=== PATIENT | male | born 1945 | race Caucasian/White ===

== ENCOUNTER 2016-07-15 11:45 | Emergency (ER) | payer OTHER ==
[2016-07-15 11:54] VITALS: BMI 23.1
[2016-07-15] MEDS ORDERED: methylPREDNISolone NA SUCC 125 MG/2 ML VIAL IVPB ONE (12:19)
[2016-07-15] MEDS ORDERED: ALBUTEROL SO4 2.5/IPRATROPIUM 0.5 INH SOL 3 ML VIAL.NEB. NEB ONE ×2 (12:19→12:21)
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
[2016-07-15] MEDS ORDERED: methylPREDNISolone NA SUCC 125 MG/2 ML VIAL ONE (12:24)
[2016-07-15 12:42] LABS: MCH 30.2 pg (25.7-33.7); MCHC 31.8 g/dl (32.0-35.9); MEAN CELL VOLUME 95.1 fl (80-96); MEAN PLT VOLUME 9.9 fl (7.5-11.1); PLATELET COUNT 180 K/MM3 (134-434); RDW 15.6 % (11.9-15.9); WHITE BLOOD COUNT 22.9 K/mm3 (4.0-10.0)
[2016-07-15 13:08] LABS: ALBUMIN 3.8 g/dl (3.4-5.0); ANION GAP 9 (8-16); BILIRUBIN,TOTAL 0.9 mg/dL (0.2-1.0); CALCIUM 9.5 mg/dL (8.5-10.1); CO2 29 mmol/L (21-32); COCKROFT - GAULT 88.19; CREATININE 0.9 mg/dL (0.7-1.3); GLUCOSE,RANDOM 107 mg/dL (74-106); SGOT/AST 19 U/L (15-37); SGPT/ALT 24 U/L (12-78)
[2016-07-15 13:12] LABS: ALK PHOS 86 U/L (45-117); TOT PROT 7.4 g/dl (6.4-8.2); TROPONIN I < 0.02 ng/ml (0.00-0.05)
[2016-07-15 14:32] VITALS: BP 115/85; PULSE 102
[2016-07-15 15:02] VITALS: TEMP 97.8
== END 2016-07-15 15:01 | disposition home or self-care (01) ==
LOC: JER 11:45
PROC: 3E0F7GC Introduction of Other Therapeutic Substance into Respiratory Tract, Via Natural or Artificial Opening (ICD-10-PCS; principal; 2016-07-15)
PROC: 3E0333Z Introduction of Anti-inflammatory into Peripheral Vein, Percutaneous Approach (ICD-10-PCS; 2016-07-15)
DX: J44.1 Chronic obstructive pulmonary disease with (acute) exacerbation (principal); J45.909 Unspecified asthma, uncomplicated; F17.210 Nicotine dependence, cigarettes, uncomplicated; Z85.3 Personal history of malignant neoplasm of breast; Z90.11 Acquired absence of right breast and nipple
CPT/HCPCS: 36415; 71020-TC; 80053; 82550; 82553; 84484; 85025; 94640; 96374; 99283-25

== ENCOUNTER 2019-09-03 20:28 | Emergency (ER) | payer OTHER ==
[2019-09-03 20:40] VITALS: BP 107/75; PULSE 103; BMI 25.7
[2019-09-03] MEDS ORDERED: ALBUTEROL SO4 HFA INHALER IH ONE (21:20)
[2019-09-03 21:32] VITALS: TEMP 100.4
[2019-09-03] MEDS ORDERED: ACETAMINOPHEN 500 MG TABLET (FP) PO ONE (21:35)
[2019-09-03 21:38] LABS: BASO % 0.3 % (0-2.0); HEMATOCRIT 42.7 % (35.4-49); LYMPH % 52.3 % (8-40); MCH 30.5 pg (25.7-33.7); MCHC 32.8 g/dl (32.0-35.9); MEAN PLT VOLUME 11.6 fl (7.5-11.1); MONO % 2.9 % (3.8-10.2); NEUT % 44.5 % (42.8-82.8); PLATELET COUNT 132 K/MM3 (134-434); RBC 4.59 M/mm3 (4.00-5.60); RDW 15.8 % (11.9-15.9)
[2019-09-03] MEDS ORDERED: ACETAMINOPHEN 325 MG TABLET (FP) ONE (21:44)
[2019-09-03 21:49] LABS: INR 1.26 (0.83-1.09); PROTHROMBIN TIME (PATIENT) 14.9 SEC (9.7-13.0)
[2019-09-03 22:17] LABS: ALBUMIN 2.7 g/dl (3.4-5.0); BILIRUBIN,TOTAL 0.9 mg/dL (0.2-1); BLOOD UREA NITROGEN 15.6 mg/dL (7-18); CALCIUM 8.6 mg/dL (8.5-10.1); CREATININE 1.4 mg/dL (0.55-1.3); POTASSIUM 3.9 mmol/L (3.5-5.1); TOT PROT 6.2 g/dl (6.4-8.2)
[2019-09-03 22:23] LABS: N-TERMINAL BNP 595.7 pg/ml (5-125)
[2019-09-03 22:36] LABS: MACROCYTOSIS 1+; PLATELET ESTIMATE SLT DECREASE
[2019-09-04] MEDS ORDERED: PIPERACILLIN/TAZOB 4.5 GM 4.5 GM in DEXTROSE 5%-WATER 100 ML IVPB ONE (00:12)
[2019-09-04] MEDS ORDERED: PIPERACILLIN/TAZOB 4.5 GM 4.5 GM/100 ML BAG IVPB ONE (00:17)
[2019-09-04] MEDS ORDERED: VANCOMYCIN 1,000 MG in DEXTROSE 5%-WATER - 250 ML IVPB ONE (01:05)
== END 2019-09-04 01:45 | disposition left against medical advice (07) ==
LOC: JER 20:28
DX: J44.1 Chronic obstructive pulmonary disease with (acute) exacerbation (principal); Z20.828 Contact with and (suspected) exposure to other viral communicable diseases
CPT/HCPCS: 36415; 71045-TC-FY; 71250-TC; 80053; 80307; 82728; 83605; 83615; 83880; 85025; 85610; 87040; 93005; 93010; 99285-25; U0003

== ENCOUNTER 2019-09-04 10:05 | Inpatient (IN) | payer OTHER ==
[2019-09-04] MEDS ORDERED: ACETAMINOPHEN INJECTION 100 ML IVPB ONE ×2 (10:24→16:44)
[2019-09-04] MEDS ORDERED: ACETAMINOPHEN 1000 MG/100 ML VIAL (NON FORMULARY) IVPB ONE ×2 (10:24→16:36)
[2019-09-04] MEDS ORDERED: ALBUTEROL SO4 2.5/IPRATROPIUM 0.5 INH SOL 3 ML VIAL.NEB. NEB ONE ×2 (10:24→16:19)
[2019-09-04] MEDS: ALBUTEROL SO4 2.5/IPRATROPIUM 0.5 INH SOL 3 ML VIAL.NEB. NEB SCH ×4 (10:30→11:20)
[2019-09-04 11:05] LABS: INR 1.23 (0.83-1.09); PROTHROMBIN TIME (PATIENT) 14.5 SEC (9.7-13.0)
[2019-09-04] MEDS ORDERED: PIPERACILLIN/TAZOB 4.5 GM 4.5 GM/100 ML BAG IVPB ONE ×2 (11:06→11:11)
[2019-09-04] MEDS ORDERED: VANCOMYCIN 1 GM in D5W (PRE-DOCKED) 1,000 MG/250 ML IVPB ONE (11:06)
[2019-09-04 11:08] LABS: ACTIVATED PTT 29.8 SECONDS (25.2-36.5); BASO % 0.1 % (0-2.0); HEMOGLOBIN 14.5 GM/dL (11.7-16.9); LYMPH % 52.9 % (8-40); MCH 30.6 pg (25.7-33.7); MCHC 32.9 g/dl (32.0-35.9); MEAN CELL VOLUME 93.1 fl (80-96); MEAN PLT VOLUME 11.8 fl (7.5-11.1); MONO % 2.8 % (3.8-10.2); NEUT % 44.2 % (42.8-82.8); PLATELET COUNT 135 K/MM3 (134-434); RBC 4.73 M/mm3 (4.00-5.60); RDW 15.3 % (11.9-15.9)
[2019-09-04] MEDS ORDERED: VANCOMYCIN 1 GRAM (PRE-DOCKED) 1,000 MG/250 ML BAG IVPB ONE (11:11)
[2019-09-04 11:13] LABS: VENOUS PC02 35.9 mmHg (38-52); VENOUS PO2 < 49 mmHg (28-48)
[2019-09-04 11:14] LABS: VENOUS BASE EXCESS -2.4 mmol/L (-2-2)
[2019-09-04 11:32] LABS: ALBUMIN 2.8 g/dl (3.4-5.0); ALK PHOS 77 U/L (45-117); ANION GAP 12 MMOL/L (8-16); BILIRUBIN,TOTAL 0.8 mg/dL (0.2-1); BLOOD UREA NITROGEN 19.5 mg/dL (7-18); CALCIUM 8.7 mg/dL (8.5-10.1); CHLORIDE 96 mmol/L (98-107); CO2 21 mmol/L (21-32); CREATININE 1.4 mg/dL (0.55-1.3); GLUCOSE,RANDOM 109 mg/dL (74-106); POTASSIUM 4.3 mmol/L (3.5-5.1); SGOT/AST 32 U/L (15-37); SGPT/ALT 35 U/L (13-61); SODIUM 129 mmol/L (136-145); TOT PROT 6.5 g/dl (6.4-8.2)
--- NOTE | 2019-09-04 11:39 | PDOC ---
Documentation entered by Cally Alfaro SCRIBE, acting as scribe for Gray Nolasco MD. Gray Nolasco MD: This documentation has been prepared by the Angelina coffman Adrianna, SCRIBE, under my direction and personally reviewed by me in its entirety. I confirm that the documentation accurately reflects all work, treatment, procedures, and medical decision making performed by me. History of Present Illness - General Chief Complaint: Respiratory Stated Complaint: LOW OXYGEN/ABD DISTENTION Time Seen by Provider: 09/04/19 11:02 - History of Present Illness Initial Comments: The patient is a 73 year old male, with a significant PMH of R-sided breast cancer (s/p mastectomy), COPD, leukocytosis, alcoholism, and current smoker, who presents to the ED for evaluation of fever and shortness of breath. He complains of SOB, fever (tmax 103), body aches, and generalized weakness. Patient was seen in the ED yesterday for the same complaint, but decided to leave AMA. His CXR yesterday demonstrated a right upper lobe wedge-shaped infiltrate, he was given Zosyn in the ER and discharged with Levaquin. He returned to the ED today, as his symptoms have been progressively getting worse. Allergies: Mustard Surgical History: None reported Social History: Alcoholism. Current everyday smoker (1ppd) PCP: Dr. Kapadia Past History - Past Medical History Allergies/Adverse Reactions: Allergies Allergy/AdvReac Type Severity Reaction Status Date / Time mustard Allergy Verified 09/04/19 10:43 Home Medications: Ambulatory Orders Albuterol 2.5/Ipratropium 0.5 [Duoneb -] 1 neb NEB Q6H PRN #30 vial 07/15/16 Levofloxacin [Levaquin] 750 mg PO DAILY #5 tablet MDD 1 tab 09/04/19 Tamoxifen Citrate 20 mg PO DAILY 09/04/19 Asthma: Yes Cancer: Yes (RT BREAST CA) COPD: Yes - Immunization History Td Vaccination: Yes TDAP Vaccination: Yes Immunization Up to Date: Yes - Psycho Social/Smoking Cessation Hx Smoking Status: No Smoking History: Never smoked Years of Tobacco Use: 30 Have you smoked in the past 12 months: No Number of Cigarettes Smoked Daily: 4 Information on smoking cessation initiated: No 'Breaking Loose' booklet given: 06/18/13 Hx Alcohol Use: No Drug/Substance Use Hx: No Substance Use Type: None Hx Substance Use Treatment: No Review of Systems - Review of Systems Comments:: CONSTITUTIONAL: +Fever (tmax 103). +Generalized weakness. +Body aches. No reported: Chills, Diaphoresis, Malaise, Loss of Appetite HEENT: No reported: Rhinorrhea, Nasal Congestion, Throat Pain, Throat Swelling, Difficulty Swallowing, Mouth Swelling, Ear Pain, Eye Pain, Visual Changes CARDIOVASCULAR: No reported: Chest Pain, Syncope, Palpitations, Irregular Heart Rate, Lightheadedness, Peripheral Edema RESPIRATORY: +SOB. No reported: Cough, Orthopnea, Wheezing, Stridor, Hemoptysis GASTROINTESTINAL: No reported: Abdominal pain, Abdominal Distension, Nausea, Vomiting, Diarrhea, Constipation, Melena, Hematochezia GENITOURINARY: No reported: Dysuria, Frequency, Urgency, Hesitancy, Flank Pain, Genital Pain MUSCULOSKELETAL: No reported: Myalgia, Arthralgia, Joint Swelling, Back pain, Neck Pain SKIN: No reported: Rash, Itching, Pallor HEMATOLOGIC/IMMUNOLOGIC: No reported: Easy Bleeding, Easy Bruising, Lymphadenopathy, Frequent infections ENDOCRINE: No reported: Unexplained Weight Gain, Unexplained Weight Loss, Heat Intolerance, Cold Intolerance NEUROLOGIC: No reported: Headache, Focal Weakness, Paresthesias, Vertigo, Lightheadedness, Unsteady Gait, Seizure, Mental Status Changes, Incontinence PSYCHIATRIC: No reported: Anxiety, Depression *Physical Exam - Vital Signs Last Vital Signs Temp Pulse Resp BP Pulse Ox 103.1 F H 112 H 26 H 132/67 93 L 09/04/19 10:09/04/19 10:09/04/19 10:09/04/19 10:09/04/19 10:47 - Physical Exam GENERAL: The patient is awake, alert, and fully oriented, Nontoxic - in no acute distress. HEAD: Normocephalic, atraumatic. EYES: extraocular movements intact, sclera anicteric, conjunctiva clear. ENT: Normal voice, Moist mucous membranes. NECK: Normal range of motion, supple LUNGS: + rhonchi, expiratory wheezes HEART: Regular rate and rhythm, without murmur, rub or gallop. ABDOMEN: Soft, nontender, No guarding, no rebound.No CVA tenderness EXTREMITIES: Normal range of motion, no edema. No cyanosis. No erythema, or tenderness. NEUROLOGICAL: No facial asymmetry, Normal speech, PSYCH: Normal mood, normal affect. SKIN: Warm, Dry, normal turgor. ED Treatment Course - LABORATORY CBC & Chemistry Diagram: 09/04/19 10:28 09/04/19 10:28 - ADDITIONAL ORDERS Additional order review: Laboratory Results 09/04/19 10:28 PT with INR 14.50 H INR 1.23 H PTT (Actin FS) 29.8 09/04/19 10:28 RBC 4.73 MCV 93.1 MCHC 32.9 RDW 15.3 MPV 11.8 H Neutrophils % 44.2 Lymphocytes % 52.9 H Monocytes % 2.8 L Eosinophils % 0.0 Basophils % 0.1 - RADIOLOGY Radiograph Interpretation: EXAM#: TYPE/EXAM: RESULT: [id number] RAD/CHEST X-RAY PORTABLE* Rule out sepsis Portable chest x-ray, AP semiupright Right lung apex was not included. Since prior chest x-ray dated , airspace disease again seen in the right upper and midlung. Bilateral interstitial opacities are again seen. The cardiac silhouette remains within normal limits in size. Impression: No significant interval change Reported By: Alexy Purdy MD 09/04/19 11:11 - Medications Given in the ED: ED Medications Discontinued Medications Generic Name Dose Route Start Last Admin Trade Name Freq PRN Reason Stop Dose Admin Acetaminophen 1,000 mg 09/04/19 10:24 09/04/19 10:30 Ofirmev Injection - IVPB 09/04/19 10:25 1,000 mg ONCE ONE Administration Albuterol/Ipratropium 1 amp 09/04/19 10:30 09/04/19 11:07 Duoneb - NEB 09/04/19 11:16 1 amp Q15M PIERCE Administration Medical Decision Making - Critical Care Time Total Critical Care Time (minutes): 60 Critical Care Statement: The care of this patient involved high complexity decision making to prevent further life threatening deterioration of the patient's condition and/or to evaluate & treat vital organ system(s) failure or risk of failure. - Medical Decision Making 09/04/19 11:43 73 M with RUL PNA diagnosed yesterday, returning to ED after leaving AMA with worsening SOB and weakness. - Labs, cultures - Repeat CXR - Tylenol - Abx - Duonebs - Admit 09/04/19 12:[address] Gudino Discharge - Discharge Information Problems reviewed: Yes Clinical Impression/Diagnosis: Pneumonia - Admission Yes - Follow up/Referral Referrals: Yobani Kapadia MD [Primary Care Provider] - - Patient Discharge Instructions - Post Discharge Activity
[2019-09-04 12:08] LABS: ANISOCYTOSIS 0; MACROCYTOSIS 0; PLATELET ESTIMATE DECREASED
--- NOTE | 2019-09-04 13:20 | EKG ---
Test Reason : Blood Pressure : / mmHG Vent. Rate : 110 BPM Atrial Rate : 110 BPM P-R Int : 140 ms QRS Dur : 074 ms QT Int : 304 ms P-R-T Axes : 058 062 061 degrees QTc Int : 411 ms SINUS TACHYCARDIA SEPTAL INFARCT , AGE UNDETERMINED ABNORMAL ECG WHEN COMPARED WITH ECG OF 03-SEP-2019 22:32, SEPTAL INFARCT IS NOW PRESENT Confirmed by MD CHANTELL, AGNES ([id number]) on 09/04/2019 1:19:33 PM Referred By: Confirmed By:AGNES ABDUL MD
[2019-09-04] MEDS ORDERED: SODIUM CHLORIDE 500 ML IV STA (14:44)
[2019-09-04 15:17] LABS: EPI CELLS 11 /uL (0-25.1); HYALINE CASTS 1 /uL (0-3.1); PH,URINE 5.5 (5.0-8.0); URINE APPEARANCE CLEAR; URINE BACTERIA 33 /uL (0-1359); URINE BILIRUBIN NEGATIVE (NEGATIVE); URINE COLOR YELLOW; URINE GLUCOSE (UA) NEGATIVE (NEGATIVE); URINE KETONE 1+ (NEGATIVE); URINE LEUK ESTERASE NEGATIVE (NEGATIVE); URINE NITRITE NEGATIVE (NEGATIVE); URINE PROTEIN 2+ (NEGATIVE); URINE RBC 11 /uL (0-23.9); URINE WBC 11 /uL (0-25.8)
[2019-09-04 15:44] LABS: YEAST NEGATIVE (NEGATIVE)
[2019-09-04] MEDS ORDERED: methylPREDNISolone NA SUCC 125 MG/2 ML VIAL ONE (16:13)
[2019-09-04] MEDS ORDERED: methylPREDNISolone NA SUCC 125 MG/2 ML VIAL IVPB ONE (16:24)
[2019-09-04] MEDS ORDERED: ALBUTEROL SO4 2.5/IPRATROPIUM 0.5 INH SOL 3 ML VIAL.NEB. NEB PRN (16:38)
--- NOTE | 2019-09-04 16:38 | HP ---
Admitting History and Physical - Primary Care Physician PCP: Tiffanie Gudino - Admission History of Present Illness: 73 year old male, with a significant PMH of R-sided breast cancer (s/p mastectomy), COPD, leukocytosis, alcoholism, and current smoker, who presents to the ED for evaluation of fever and shortness of breath. He complains of SOB, fever (tmax 103), body aches, and generalized weakness. Patient was seen in the ED yesterday for the same complaint, but decided to leave AMA. His CXR yesterday demonstrated a right upper lobe wedge-shaped infiltrate, he was given Zosyn in the ER and discharged with Levaquin. He returned to the ED today, as his symptoms have been progressively getting worse. - Past Medical History Pulmonary: Yes: COPD Heme/Onc: Yes: Cancer (Prior breast cancer - R mastectomy) Psych: Yes: Addictions - Smoking History Smoking history: Never smoked Have you smoked in the past 12 months: No Aproximately how many cigarettes per day: 4 - Alcohol/Substance Use Hx Alcohol Use: No Home Medications - Allergies Allergies/Adverse Reactions: Allergies Allergy/AdvReac Type Severity Reaction Status Date / Time mustard Allergy Verified 09/04/19 10:43 - Home Medications Home Medications: Ambulatory Orders Albuterol 2.5/Ipratropium 0.5 [Duoneb -] 1 neb NEB Q6H PRN #30 vial 07/15/16 Levofloxacin [Levaquin] 750 mg PO DAILY #5 tablet MDD 1 tab 09/04/19 Tamoxifen Citrate 20 mg PO DAILY 09/04/19 Physical Examination Vital Signs: Vital Signs Temperature 98.6 F 09/04/19 14:26 Pulse Rate 100 H 09/04/19 14:26 Respiratory Rate 22 H 09/04/19 14:26 Blood Pressure 120/59 L 09/04/19 14:26 O2 Sat by Pulse Oximetry (%) 95 09/04/19 14:26 Constitutional: Yes: Mild Distress HENT: Yes: Atraumatic Neck: Yes: Supple Cardiovascular: Yes: Regular Rate and Rhythm Respiratory: Yes: Rhonchi, Wheezes Gastrointestinal: Yes: Normal Bowel Sounds Extremities: Yes: WNL Neurological: Yes: Alert Labs: CBC, BMP 09/04/19 10:28 09/04/19 10:28 Imaging - Results X-ray: Report Reviewed Problem List - Problems (1) Pneumonia Assessment/Plan: IV ABX ID CONSULT ON BIPAP ICU TO EVALUATE PT HAD CHEST CT DONE YESTERDAY..MARIA ELENA PNA Code(s): J18.9 - PNEUMONIA, UNSPECIFIED ORGANISM (2) COPD (chronic obstructive pulmonary disease) Assessment/Plan: DUO NEBS IV STEROIDS PULMONARY/ID CONSULT Code(s): J44.9 - CHRONIC OBSTRUCTIVE PULMONARY DISEASE, UNSPECIFIED (3) Suspected COVID-19 virus infection Code(s): Z20.828 - CONTACT W AND EXPOSURE TO OTH VIRAL COMMUNICABLE DISEASES (4) Sepsis Code(s): A41.9 - SEPSIS, UNSPECIFIED ORGANISM Assessment/Plan Laboratory Tests 09/04/19 09/04/19 09/04/19 10:28 10:28 10:28 WBC 38.0 H* RBC 4.73 Hgb 14.5 Hct 44.0 MCV 93.1 MCH 30.6 MCHC 32.9 RDW 15.3 Plt Count 135 MPV 11.8 H Absolute Neuts (auto) 16.8 H Neutrophils % 44.2 Neutrophils % (Manual) 32.7 L Band Neutrophils % 11.9 Lymphocytes % 52.9 H Lymphocytes % (Manual) 43.5 H Monocytes % 2.8 L Monocytes % (Manual) 2 L Eosinophils % 0.0 Eosinophils % (Manual) 0.0 D Basophils % 0.1 Basophils % (Manual) 0.0 Myelocytes % (Man) 0 Promyelocytes % (Man) 0 Blast Cells % (Manual) 0 Nucleated RBC % 0 Metamyelocytes 0 Hypochromia 0 Platelet Estimate Decreased Polychromasia 0 Poikilocytosis 0 Anisocytosis 0 Microcytosis 0 Macrocytosis 0 PT with INR 14.50 H INR 1.23 H PTT (Actin FS) 29.8 VBG pH POC VBG pCO2 POC VBG pO2 VBG HCO3 VBG O2 Sat (Rachelle) VBG Base Excess Sodium 129 L Potassium 4.3 Chloride 96 L Carbon Dioxide 21 Anion Gap 12 BUN 19.5 H Creatinine 1.4 H Est GFR (CKD-EPI)AfAm 58.17 Est GFR (CKD-EPI)NonAf 50.19 Random Glucose 109 H Lactic Acid Calcium 8.7 Total Bilirubin 0.8 AST 32 ALT 35 Alkaline Phosphatase 77 Troponin I < 0.02 Total Protein 6.5 Albumin 2.8 L Urine Color Urine Appearance Urine pH Ur Specific [place] Urine Protein Urine Glucose (UA) Urine Ketones Urine Blood Urine Nitrite Urine Bilirubin Urine Urobilinogen Ur Leukocyte Esterase Urine WBC (Auto) Urine RBC (Auto) Urine Casts (Auto) U Epithel Cells (Auto) Urine Bacteria (Auto) Urine Yeast (Auto) 09/04/19 09/04/19 09/04/19 10:28 10:28 14:00 WBC RBC Hgb Hct MCV MCH MCHC RDW Plt Count MPV Absolute Neuts (auto) Neutrophils % Neutrophils % (Manual) Band Neutrophils % Lymphocytes % Lymphocytes % (Manual) Monocytes % Monocytes % (Manual) Eosinophils % Eosinophils % (Manual) Basophils % Basophils % (Manual) Myelocytes % (Man) Promyelocytes % (Man) Blast Cells % (Manual) Nucleated RBC % Metamyelocytes Hypochromia Platelet Estimate Polychromasia Poikilocytosis Anisocytosis Microcytosis Macrocytosis PT with INR INR PTT (Actin FS) VBG pH 7.40 POC VBG pCO2 35.9 L POC VBG pO2 < 49 H VBG HCO3 21.7 L VBG O2 Sat (Rachelle) 76.8 VBG Base Excess -2.4 L Sodium Potassium Chloride Carbon Dioxide Anion Gap BUN Creatinine Est GFR (CKD-EPI)AfAm Est GFR (CKD-EPI)NonAf Random Glucose Lactic Acid 1.4 Calcium Total Bilirubin AST ALT Alkaline Phosphatase Troponin I Total Protein Albumin Urine Color Yellow Urine Appearance Clear Urine pH 5.5 Ur Specific [place] 1.019 Urine Protein 2+ H Urine Glucose (UA) Negative Urine Ketones 1+ H Urine Blood 1+ H Urine Nitrite Negative Urine Bilirubin Negative Urine Urobilinogen 1.0 Ur Leukocyte Esterase Negative Urine WBC (Auto) 11 Urine RBC (Auto) 11 Urine Casts (Auto) 1 U Epithel Cells (Auto) 11 Urine Bacteria (Auto) 33 Urine Yeast (Auto) Negative Active Medications Generic Name Dose Route Start Last Admin Trade Name Freq PRN Reason Stop Dose Admin Non-Formulary Medication 20 mg 09/05/19 10:00 Tamoxifen Citrate [Tamoxifen Citrate] PO DAILY PIERCE Active Medications Generic Name Dose Route Start Last Admin Trade Name Freq PRN Reason Stop Dose Admin Albuterol/Ipratropium 1 amp 09/04/19 16:38 09/04/19 16:30 Duoneb - NEB 1 amp Q6H PRN Administration SHORTNESS OF BREATH Heparin Sodium (Porcine) 5,000 unit 09/04/19 22:00 Heparin - SQ BID PIERCE Piperacillin Sod/Tazobactam 50 mls @ 100 mls/hr 09/04/19 18:00 Sod 3.375 gm/ Dextrose IVPB Q8H-IV PIERCE Protocol Piperacillin Sod/Tazobactam 50 mls @ 100 mls/hr 09/04/19 18:00 09/04/19 19:18 Sod 3.375 gm/ Dextrose IVPB 09/05/19 10:29 100 mls/hr Q8H-IV PIERCE Administration Protocol Methylprednisolone Sodium Succinate 40 mg 09/04/19 18:00 09/04/19 18:33 Solu-Medrol - IVPUSH Not Given Q8H-IV PIERCE Tamoxifen Citrate 20 mg 09/05/19 10:00 Tamoxifen Citrate PO DAILY [facility] FOR DR GUDINO TODAY
[2019-09-04] MEDS ORDERED: LORazepam 2 MG/ML SDV VIAL ONE (17:01)
--- NOTE | 2019-09-04 17:36 | CONSULT ---
Consultation: REQUESTING PROVIDER: ICU service CONSULT REQUEST: We have been asked to medically evaluate this patient for PNA/COPD and hypoxia. HISTORY OF PRESENT ILLNESS: History taken primarily from ED staff and records. Pt is a 73 y/o M with PMH R-sided breast cancer (s/p mastectomy), COPD, leukocytosis, alcoholism, and current smoker who presented to ED with fever, body aches, generalized weakness and SOB. Of note, he was in ED yesterday with similar complaint, was diagnosed with PNA, and left AMA after receiving a dose of Zosyn and a script for Levaquin. Pt denies bowel/bladder difficulties, however, nurse noted a single episode of diarrhea in ED. REVIEW OF SYSTEMS: CONSTITUTIONAL: fever, chills, diaphoresis, generalized weakness, malaise Absent: loss of appetite, weight change HEENT: Absent: rhinorrhea, nasal congestion, throat pain, throat swelling, difficulty swallowing, mouth swelling, ear pain, eye pain, visual changes CARDIOVASCULAR: Absent: chest pain, syncope, palpitations, irregular heart rate, lightheadedness, peripheral edema RESPIRATORY: shortness of breath Absent: cough, , dyspnea with exertion, orthopnea, wheezing, stridor, hemoptysis GASTROINTESTINAL: Absent: abdominal pain, abdominal distension, nausea, vomiting, diarrhea, constipation, melena, hematochezia GENITOURINARY: Absent: dysuria, frequency, urgency, hesitancy, hematuria, flank pain, genital pain MUSCULOSKELETAL: Absent: myalgia, arthralgia, joint swelling, back pain, neck pain SKIN: Absent: rash, itching, pallor HEMATOLOGIC/IMMUNOLOGIC: Absent: easy bleeding, easy bruising, lymphadenopathy, frequent infections ENDOCRINE: Absent: unexplained weight gain, unexplained weight loss, heat intolerance, cold intolerance NEUROLOGIC: Absent: headache, focal weakness or paresthesias, dizziness, unsteady gait, seizure, mental status changes, bladder or bowel incontinence PSYCHIATRIC: Absent: anxiety, depression, suicidal or homicidal ideation, hallucinations. PHYSICAL EXAMINATION Vital Signs - 24 hr 09/04/19 09/04/19 09/04/19 10:05 10:46 10:47 Temperature 103.1 F H Pulse Rate 112 H Pulse Rate [ Apical] Respiratory 26 H Rate Blood Pressure 132/67 Blood Pressure [Right Arm] O2 Sat by Pulse 93 L 3 L 93 L Oximetry (%) 09/04/19 09/04/1909/03/20 11:25 12:20 12:38 Temperature 98.7 F Pulse Rate Pulse Rate [ 104 H 97 H Apical] Respiratory 24 H 18 Rate Blood Pressure Blood Pressure 109/50 L 107/64 [Right Arm] O2 Sat by Pulse 96 97 Oximetry (%) 09/04/19 09/04/19 09/04/19 12:40 14:26 16:30 Temperature 98.6 F Pulse Rate Pulse Rate [ 98 H 100 H Apical] Respiratory 22 H 22 H Rate Blood Pressure Blood Pressure 107/64 120/59 L [Right Arm] O2 Sat by Pulse 96 95 98 Oximetry (%) Gen: Slightly confused, AAOx1 HEENT: reddening of face, on bilevel Neck: trachea central, supple Cardio: tachycardic, s1s2, no mrg appreciated Pulm: unable to assess. Pt uncooperative. Abd: mildly distended, soft, nontender, no organomegally noted Ext: no edema noted Laboratory Results - last 24 hr 09/04/19 09/04/19 09/04/19 10:28 10:28 10:28 WBC 38.0 H* RBC 4.73 Hgb 14.5 Hct 44.0 MCV 93.1 MCH 30.6 MCHC 32.9 RDW 15.3 Plt Count 135 MPV 11.8 H Absolute Neuts (auto) 16.8 H Neutrophils % 44.2 Neutrophils % (Manual) 32.7 L Band Neutrophils % 11.9 Lymphocytes % 52.9 H Lymphocytes % (Manual) 43.5 H Monocytes % 2.8 L Monocytes % (Manual) 2 L Eosinophils % 0.0 Eosinophils % (Manual) 0.0 D Basophils % 0.1 Basophils % (Manual) 0.0 Myelocytes % (Man) 0 Promyelocytes % (Man) 0 Blast Cells % (Manual) 0 Nucleated RBC % 0 Metamyelocytes 0 Hypochromia 0 Platelet Estimate Decreased Polychromasia 0 Poikilocytosis 0 Anisocytosis 0 Microcytosis 0 Macrocytosis 0 PT with INR 14.50 H INR 1.23 H PTT (Actin FS) 29.8 VBG pH POC VBG pCO2 POC VBG pO2 VBG HCO3 VBG O2 Sat (Rachelle) VBG Base Excess Sodium 129 L Potassium 4.3 Chloride 96 L Carbon Dioxide 21 Anion Gap 12 BUN 19.5 H Creatinine 1.4 H Est GFR (CKD-EPI)AfAm 58.17 Est GFR (CKD-EPI)NonAf 50.19 Random Glucose 109 H Lactic Acid Calcium 8.7 Total Bilirubin 0.8 AST 32 ALT 35 Alkaline Phosphatase 77 Troponin I < 0.02 Total Protein 6.5 Albumin 2.8 L Urine Color Urine Appearance Urine pH Ur Specific [place] Urine Protein Urine Glucose (UA) Urine Ketones Urine Blood Urine Nitrite Urine Bilirubin Urine Urobilinogen Ur Leukocyte Esterase Urine WBC (Auto) Urine RBC (Auto) Urine Casts (Auto) U Epithel Cells (Auto) Urine Bacteria (Auto) Urine Yeast (Auto) 09/04/19 09/04/19 09/04/19 10:28 10:28 14:00 WBC RBC Hgb Hct MCV MCH MCHC RDW Plt Count MPV Absolute Neuts (auto) Neutrophils % Neutrophils % (Manual) Band Neutrophils % Lymphocytes % Lymphocytes % (Manual) Monocytes % Monocytes % (Manual) Eosinophils % Eosinophils % (Manual) Basophils % Basophils % (Manual) Myelocytes % (Man) Promyelocytes % (Man) Blast Cells % (Manual) Nucleated RBC % Metamyelocytes Hypochromia Platelet Estimate Polychromasia Poikilocytosis Anisocytosis Microcytosis Macrocytosis PT with INR INR PTT (Actin FS) VBG pH 7.40 POC VBG pCO2 35.9 L POC VBG pO2 < 49 H VBG HCO3 21.7 L VBG O2 Sat (Rachelle) 76.8 VBG Base Excess -2.4 L Sodium Potassium Chloride Carbon Dioxide Anion Gap BUN Creatinine Est GFR (CKD-EPI)AfAm Est GFR (CKD-EPI)NonAf Random Glucose Lactic Acid 1.4 Calcium Total Bilirubin AST ALT Alkaline Phosphatase Troponin I Total Protein Albumin Urine Color Yellow Urine Appearance Clear Urine pH 5.5 Ur Specific [place] 1.019 Urine Protein 2+ H Urine Glucose (UA) Negative Urine Ketones 1+ H Urine Blood 1+ H Urine Nitrite Negative Urine Bilirubin Negative Urine Urobilinogen 1.0 Ur Leukocyte Esterase Negative Urine WBC (Auto) 11 Urine RBC (Auto) 11 Urine Casts (Auto) 1 U Epithel Cells (Auto) 11 Urine Bacteria (Auto) 33 Urine Yeast (Auto) Negative Active Medications Generic Name Dose Route Start Last Admin Trade Name Freq PRN Reason Stop Dose Admin Albuterol/Ipratropium 1 amp 09/04/19 16:38 Duoneb - NEB Q6H PRN SHORTNESS OF BREATH Heparin Sodium (Porcine) 5,000 unit 09/04/19 22:00 Heparin - SQ BID PIERCE Piperacillin Sod/Tazobactam 50 mls @ 100 mls/hr 09/04/19 18:00 Sod 3.375 gm/ Dextrose IVPB Q8H-IV PIERCE Protocol Piperacillin Sod/Tazobactam 50 mls @ 100 mls/hr 09/04/19 18:00 Sod 3.375 gm/ Dextrose IVPB 09/05/19 10:29 Q8H-IV PIERCE Protocol Methylprednisolone Sodium Succinate 40 mg 09/04/19 18:00 Solu-Medrol - IVPUSH Q8H-IV PIERCE Tamoxifen Citrate 20 mg 09/05/19 10:00 Tamoxifen Citrate PO DAILY PIERCE ASSESSMENT/PLAN: Pt is a 73 y/o M with PMH R-sided breast cancer (s/p mastectomy), COPD, leukocytosis, alcoholism, and current smoker who presented to ED with fever, body aches, generalized weakness and SOB. He was in ED yesterday with the same complaint and was diagnosed with R PNA and left AMA. PNA with COPD exacerbation -febrile, tachycardic, leukocytosis (chronically elevated), consolidation on CXR -received Zosyn and was given Levaquin yesterday (unclear if he took any) -now on vanc/Zosyn, methylprednisolone, duoneb -on Bilevel NIPPV -satting well, not hypotensive Agree with current management. Recommend treatment on medical floor at this time. Dispo: Thank you for this consultative opportunity. Visit type - Emergency Visit Emergency Visit: Yes ED Registration Date: 09/04/19 Care time: The patient presented to the Emergency Department on the above date and was hospitalized for further evaluation of their emergent condition. - New Patient This patient is new to me today: Yes Date on this admission: 09/04/19 - Critical Care Critical Care patient: No ATTENDING PHYSICIAN STATEMENT I saw and evaluated the patient. I reviewed the resident's note and discussed the case with the resident. I agree with the resident's findings and plan as documented. SUBJECTIVE: OBJECTIVE: ASSESSMENT AND PLAN:
[2019-09-04] MEDS ORDERED: PIPERACILLIN/TAZOB 3.375 GM 3.375 GM in DEXTROSE 5%-WATER - 50 ML IVPB SCH (18:00)
[2019-09-04] MEDS: methylPREDNISolone NA SUCC 40 MG/1 ML VIAL IVPUSH SCH (18:33)
[2019-09-04] MEDS ORDERED: PIPERACILLIN/TAZOB 3.375 GM 3.375 GM/50 ML BAG IVPB ONE (19:07)
[2019-09-04] MEDS: PIPERACILLIN/TAZOB 3.375 GM 3.375 GM in DEXTROSE 5%-WATER - 50 ML IVPB SCH (19:18)
[2019-09-04] MEDS: HEPARIN NA (PORCINE) 5,000 UNITS/ML 1ML VIAL SQ SCH (22:37)
[2019-09-04] MEDS ORDERED: HEPARIN NA (PORCINE) 5,000 UNITS/ML 1ML VIAL ONE (22:51)
[2019-09-04] MEDS ORDERED: DEXTROSE 5%-WATER - 50 ML IVPB ONE (23:52)
[2019-09-04] MEDS ORDERED: PIPERACILLIN/TAZOBACTAM 3.375 GM VIAL IVPB ONE (23:52)
[2019-09-05] MEDS: PIPERACILLIN/TAZOB 3.375 GM 3.375 GM in DEXTROSE 5%-WATER - 50 ML IVPB SCH ×3 (01:21→17:09)
[2019-09-05] MEDS: methylPREDNISolone NA SUCC 40 MG/1 ML VIAL IVPUSH SCH ×4 (01:22→20:52)
[2019-09-05 07:10] LABS: HEMATOCRIT 40.7 % (35.4-49); HEMOGLOBIN 13.2 GM/dL (11.7-16.9); LYMPH % 47.9 % (8-40); MCH 30.1 pg (25.7-33.7); MCHC 32.5 g/dl (32.0-35.9); MEAN CELL VOLUME 92.6 fl (80-96); MEAN PLT VOLUME 11.8 fl (7.5-11.1); MONO % 1.5 % (3.8-10.2); NEUT % 50.6 % (42.8-82.8); PLATELET COUNT 127 K/MM3 (134-434); RDW 16.1 % (11.9-15.9)
[2019-09-05 07:20] LABS: WHITE BLOOD COUNT 30.2 K/mm3 (4.0-10.0)
[2019-09-05 07:39] LABS: ALBUMIN 2.3 g/dl (3.4-5.0); BILIRUBIN,TOTAL 0.5 mg/dL (0.2-1); BLOOD UREA NITROGEN 18.9 mg/dL (7-18); CALCIUM 8.2 mg/dL (8.5-10.1); CREATININE 1.2 mg/dL (0.55-1.3); TOT PROT 5.8 g/dl (6.4-8.2)
[2019-09-05] MEDS ORDERED: DEXTROSE 5%-WATER - 50 ML IVPB ONE ×3 (09:03→22:43)
[2019-09-05] MEDS ORDERED: PIPERACILLIN/TAZOBACTAM 3.375 GM VIAL IVPB ONE ×3 (09:03→22:43)
[2019-09-05] MEDS: HEPARIN NA (PORCINE) 5,000 UNITS/ML 1ML VIAL SQ SCH ×2 (09:26→20:59)
--- NOTE | 2019-09-05 10:19 | PN ---
Progress Note (short form) - Note Progress Note: PULMONARY CONSULTATION DICTATED 09/05/19 IMP ACUTE HYPPOXEMIC RESPIRATORY FAILURE RUL PNEUMONIA COPD SUSPECTED COVID-19 R SIDED BREAST CA S/P MASTECTOMY ETOH TOBACCO ABUSE HYPONATREMIA PLAN SUPPLEMENTAL O2 ABX INHALED BRONCHODILATORS CULTURES COVID PCR PENDING MONITOR LYTES,NA,CBC F/U CHEST X-RAYS DR RÍOS Problem List - Problems (1) Breast calcification, right Code(s): R92.1 - MAMMOGRAPHIC CALCIFCN FOUND ON DIAGNOSTIC IMAGING OF BREAST (2) Breast cancer in male Code(s): C50.929 - MALIGNANT NEOPLASM OF UNSP SITE OF UNSPECIFIED MALE BREAST (3) Pneumonia Code(s): J18.9 - PNEUMONIA, UNSPECIFIED ORGANISM (4) Sepsis Code(s): A41.9 - SEPSIS, UNSPECIFIED ORGANISM (5) Acute respiratory failure Code(s): J96.00 - ACUTE RESPIRATORY FAILURE, UNSP W HYPOXIA OR HYPERCAPNIA Qualifiers: Respiratory failure complication: hypoxia Qualified Code(s): J96.01 - Acute respiratory failure with hypoxia (6) COPD exacerbation Code(s): J44.1 - CHRONIC OBSTRUCTIVE PULMONARY DISEASE W (ACUTE) EXACERBATION (7) Suspected COVID-19 virus infection Code(s): Z20.828 - CONTACT W AND EXPOSURE TO OTH VIRAL COMMUNICABLE DISEASES (8) COPD with exacerbation Code(s): J44.1 - CHRONIC OBSTRUCTIVE PULMONARY DISEASE W (ACUTE) EXACERBATION
[2019-09-05 11:08] LABS: ANISOCYTOSIS 1+; MACROCYTOSIS 1+; PLATELET ESTIMATE DECREASED
[2019-09-05] MEDS: TAMOXIFEN CITRATE 10 MG TABLET PO SCH (11:17)
[2019-09-05] MEDS: ACETAMINOPHEN 325 MG TABLET (FP) PO PRN ×2 (12:00→20:53)
--- NOTE | 2019-09-05 12:38 | CON.ID ---
Consult Consult Specialty:: infectious diseases Referred by:: Reason for Consultation:: sepsis,leukocytosis,resp failure,pneumonia - History of Present Illness Chief Complaint: cannot breathe History of Present Illness: 73 year old male, with a significant PMH of R-sided breast cancer (s/p mastectomy), COPD, leukocytosis, alcoholism, and current smoker, admitted for evaluation of fever and shortness of breath. He complains of SOB, fever (tmax 103), body aches, and generalized weakness. Patient was seen in the ED yesterday for the same complaint, but decided to leave AMA. His CXR yesterday demonstrated a right upper lobe wedge-shaped infiltrate, he was given Zosyn in the ER and discharged with Levaquin. He returned to the ED today, as his symptoms have been progressively getting worse. currently starting to feel better his wbc is very high ,but has decreased since the admission - History Source History Provided By: Patient, Medical Record Limitations to Obtaining History: No Limitations - Past Medical History Pulmonary: Yes: COPD Psych: Yes: Addictions - Alcohol/Substance Use Hx Alcohol Use: Yes - Smoking History Smoking history: Current every day smoker Have you smoked in the past 12 months: Yes Aproximately how many cigarettes per day: 12 Home Medications - Allergies Allergies/Adverse Reactions: Allergies Allergy/AdvReac Type Severity Reaction Status Date / Time mustard Allergy Verified 09/04/19 10:43 - Home Medications Home Medications: Ambulatory Orders Albuterol 2.5/Ipratropium 0.5 [Duoneb -] 1 neb NEB Q6H PRN #30 vial 07/15/16 Levofloxacin [Levaquin] 750 mg PO DAILY #5 tablet MDD 1 tab 09/04/19 Tamoxifen Citrate 20 mg PO DAILY 09/04/19 Review of Systems - Review of Systems Constitutional: reports: No Symptoms Eyes: reports: No Symptoms HENT: reports: No Symptoms Neck: reports: No Symptoms Cardiovascular: reports: No Symptoms Respiratory: reports: Cough, SOB, SOB on Exertion Gastrointestinal: reports: No Symptoms Genitourinary: reports: No Symptoms Breasts: reports: No Symptoms Reported Musculoskeletal: reports: No Symptoms Integumentary: reports: No Symptoms Neurological: reports: No Symptoms Endocrine: reports: No Symptoms Hematology/Lymphatic: reports: No Symptoms Psychiatric: reports: No Symptoms Physical Exam Vital Signs: Vital Signs Temperature 97.5 F L 06/11/20 06:00 Pulse Rate 75 09/05/19 06:00 Respiratory Rate 20 09/05/19 06:00 Blood Pressure 112/61 09/05/19 06:00 O2 Sat by Pulse Oximetry (%) 95 09/05/19 08:30 Constitutional: Yes: Calm, Mild Distress, Thin Eyes: Yes: Conjunctiva Clear HENT: Yes: Atraumatic, Normocephalic Neck: Yes: Supple, Trachea Midline Cardiovascular: Yes: Regular Rate and Rhythm Respiratory: Yes: On Nasal O2, Poor Air Entry, Other (effort breathing) Gastrointestinal: Yes: Normal Bowel Sounds, Soft Musculoskeletal: Yes: WNL Extremities: Yes: WNL Neurological: Yes: Alert, Oriented Psychiatric: Yes: Alert, Oriented Labs: CBC, BMP 09/05/19 05:50 09/05/19 05:50 Imaging - Results Chest X-ray: Report Reviewed, Image Reviewed Assessment/Plan Problem List - Problems (1) Breast calcification, right Code(s): R92.1 - MAMMOGRAPHIC CALCIFCN FOUND ON DIAGNOSTIC IMAGING OF BREAST (2) Breast cancer in male Code(s): C50.929 - MALIGNANT NEOPLASM OF UNSP SITE OF UNSPECIFIED MALE BREAST (3) Pneumonia Code(s): J18.9 - PNEUMONIA, UNSPECIFIED ORGANISM (4) Sepsis Code(s): A41.9 - SEPSIS, UNSPECIFIED ORGANISM (5) Acute respiratory failure Code(s): J96.00 - ACUTE RESPIRATORY FAILURE, UNSP W HYPOXIA OR HYPERCAPNIA Qualifiers: Respiratory failure complication: hypoxia Qualified Code(s): J96.01 - Acute respiratory failure with hypoxia (6) COPD exacerbation Code(s): J44.1 - CHRONIC OBSTRUCTIVE PULMONARY DISEASE W (ACUTE) EXACERBATION (7) Suspected COVID-19 virus infection Code(s): Z20.828 - CONTACT W AND EXPOSURE TO OTH VIRAL COMMUNICABLE DISEASES (8) COPD with exacerbation Code(s): J44.1 - CHRONIC OBSTRUCTIVE PULMONARY DISEASE W (ACUTE) EXACERBATION this patient with multiple medical problems coming in with pneumonia,it seems his first covid test was negative a repeat covid test is pending also i think we should get an aspiration evaluation will start lili
--- NOTE | 2019-09-05 14:26 | CONS ---
DATE OF CONSULTATION: 09/05/2019 REFERRING PHYSICIAN: Tiffanie Gudino MD The patient is a 73-year-old male with past medical history of right-sided breast cancer status post mastectomy; chronic obstructive pulmonary disease; longstanding history of tobacco use, currently still smoking approximately a pack a day; EtOH abuse, admitted to [facility] with complaint of fever and shortness of breath. The patient complained of shortness of breath, fever up to 103, generalized body aches and weakness for the past few days. He went to the ER day prior to admission with similar complaints but left AMA. At the time his chest x-ray showed right upper lobe wedge-shaped infiltrate. He was treated symptomatically in the ER and was discharged with Levaquin. Patient presented back to the ER on September 03 with increasing shortness of breath and chest congestion. The patient underwent a CAT scan of the chest which revealed extensive right lower lobe pneumonia. He was admitted. He was started on broad-spectrum antibiotics, inhaled bronchodilators, and steroids. Patient denies any recent travel. He denies any history of occupational exposure to chemicals or fumes. Of note is also the CAT scan of the chest revealed evidence of a mild mediastinal adenopathy, with the largest node being 2.1 cm in the precarinal space. PAST MEDICAL HISTORY: Again includes COPD, EtOH, history of breast cancer status post right mastectomy. MEDICATIONS: Current medications include Solu-Medrol 40 q.8, Tylenol, piperacillin, heparin, tamoxifen, and DuoNeb. REVIEW OF SYSTEMS: Positive shortness of breath, positive chest congestion, positive cough, positive fever, positive chills. No chest pain, no palpitations, no abdominal pain. PHYSICAL EXAMINATION: General: The patient is a well-developed, well-nourished male, awake, alert, dyspneic and congested on 100% nonrebreather. Vital Signs: Heart rate is 75. Temperature is 97.5. Blood pressure is 112/61. Respiratory rate is 70. O2 saturation is 95% on 100% nonrebreather. HEENT: Normocephalic, atraumatic. Neck: Supple. Heart: Regular, S1, S2. Chest: Diffuse bilateral wheezes and rhonchi. Abdomen: Soft. Bowel sounds are positive. Extremities: No cyanosis or edema. LABORATORY: WBCs 30.2, hemoglobin 13.2, hematocrit 40.7, a platelet count of 127,000, with polys, 42 lymphs. Chemistries: Sodium is 132, BUN 18, creatinine 1.2. BNP is 595. Initial COVID is not detected on September 02. Repeat is pending. IMPRESSION: Acute hypoxemic respiratory failure secondary to: 1. Extensive right-sided pneumonia. 2. Pneumonia, community acquired. 3. Chronic obstructive pulmonary disease with acute exacerbation. 4. Suspected COVID-19. 5. Right-sided breast cancer status post right mastectomy. 6. Alcohol. 7. Tobacco abuse. 8. History of hyponatremia. 9. Mediastinal adenopathy likely reactive PLAN: Supplemental O2, antibiotics as per ID, inhaled bronchodilators. Send cultures. Repeat COVID PCR pending. Monitor electrolytes, sodium, CBC. Followup chest x-rays, IV fluids. f/u chest ct outpatient 6-8 wks to confirm resolution of consolidation and mediastinal adenopathy. SAMANTHA RÍOS M.D. [id number] FLOR
[2019-09-05] MEDS: ALBUTEROL SO4 2.5/IPRATROPIUM 0.5 INH SOL 3 ML VIAL.NEB. NEB SCH ×2 (17:45→20:51)
--- NOTE | 2019-09-05 21:49 | PN ---
Progress Note, Physician History of Present Illness: No new complaints - Current Medication List Current Medications: Active Medications Acetaminophen (Tylenol -) 650 mg PO Q6H PRN PRN Reason: FEVER Last Admin: 09/05/19 20:53 Dose: 650 mg Documented by: Albuterol/Ipratropium (Duoneb -) 1 amp NEB RQID PIERCE Last Admin: 09/05/19 20:51 Dose: 1 amp Documented by: Heparin Sodium (Porcine) (Heparin -) 5,000 unit SQ BID PIERCE Last Admin: 09/05/19 20:59 Dose: 5,000 unit Documented by: Piperacillin Sod/Tazobactam (Sod 3.375 gm/ Dextrose) 50 mls @ 100 mls/hr IVPB Q8H-IV PIERCE; Protocol Last Admin: 09/05/19 17:09 Dose: 100 mls/hr Documented by: Methylprednisolone Sodium Succinate (Solu-Medrol -) 60 mg IVPUSH Q6H-IV PIERCE Last Admin: 09/05/19 20:52 Dose: 60 mg Documented by: Tamoxifen Citrate (Tamoxifen Citrate) 20 mg PO DAILY [facility] Last Admin: 09/05/19 11:17 Dose: 20 mg Documented by: - Objective Vital Signs: Vital Signs Temperature 100.9 F H 09/05/19 20:35 Pulse Rate 110 H 09/05/19 20:35 Respiratory Rate 26 H 09/05/19 21:00 Blood Pressure 117/64 09/05/19 20:35 O2 Sat by Pulse Oximetry (%) 94 L 09/05/19 21:00 Neck: Yes: WNL, Supple Cardiovascular: Yes: WNL, Regular Rate and Rhythm Respiratory: Yes: Rhonchi Gastrointestinal: Yes: WNL, Normal Bowel Sounds, Soft Labs: CBC, BMP 09/05/19 05:50 09/05/19 05:50 INR, PTT INR 1.23 (0.83-1.09) H 09/04/19 10:28 Problem List - Problems (1) Pneumonia Assessment/Plan: CXR showed b/l interstitial opacities COVID 19 pending Cont albuterol inhaler Cont IV zosyn ?Increasaed WBC May need heme consult Code(s): J18.9 - PNEUMONIA, UNSPECIFIED ORGANISM (2) COPD (chronic obstructive pulmonary disease) Assessment/Plan: Cont inhaler Code(s): J44.9 - CHRONIC OBSTRUCTIVE PULMONARY DISEASE, UNSPECIFIED (3) Breast cancer in male Assessment/Plan: Cont tamoxifen Code(s): C50.929 - MALIGNANT NEOPLASM OF UNSP SITE OF UNSPECIFIED MALE BREAST
[2019-09-05] MEDS ORDERED: ALBUTEROL SO4 HFA INHALER IH PRN (22:12)
[2019-09-06] MEDS: PIPERACILLIN/TAZOB 3.375 GM 3.375 GM in DEXTROSE 5%-WATER - 50 ML IVPB SCH ×3 (01:25→17:22)
[2019-09-06] MEDS: methylPREDNISolone NA SUCC 40 MG/1 ML VIAL IVPUSH SCH ×4 (02:38→21:38)
[2019-09-06 06:37] LABS: BASO % 0.1 % (0-2.0); HEMATOCRIT 43.1 % (35.4-49); HEMOGLOBIN 13.9 GM/dL (11.7-16.9); LYMPH % 47.3 % (8-40); MCH 29.9 pg (25.7-33.7); MCHC 32.2 g/dl (32.0-35.9); MEAN CELL VOLUME 93.1 fl (80-96); MEAN PLT VOLUME 10.8 fl (7.5-11.1); MONO % 2.5 % (3.8-10.2); NEUT % 50.1 % (42.8-82.8); PLATELET COUNT 127 K/MM3 (134-434); RBC 4.63 M/mm3 (4.00-5.60); RDW 16.5 % (11.9-15.9)
[2019-09-06 06:46] LABS: WHITE BLOOD COUNT 33.5 K/mm3 (4.0-10.0)
[2019-09-06 07:08] LABS: ALBUMIN 2.2 g/dl (3.4-5.0); BILIRUBIN,TOTAL 0.5 mg/dL (0.2-1); BLOOD UREA NITROGEN 27.1 mg/dL (7-18); CALCIUM 8.9 mg/dL (8.5-10.1); CREATININE 1.2 mg/dL (0.55-1.3); POTASSIUM 4.3 mmol/L (3.5-5.1); TOT PROT 6.1 g/dl (6.4-8.2)
[2019-09-06] MEDS: ALBUTEROL SO4 2.5/IPRATROPIUM 0.5 INH SOL 3 ML VIAL.NEB. NEB SCH (07:20)
[2019-09-06] MEDS ORDERED: DEXTROSE 5%-WATER - 50 ML IVPB ONE ×2 (09:03→17:04)
[2019-09-06] MEDS ORDERED: PIPERACILLIN/TAZOBACTAM 3.375 GM VIAL IVPB ONE ×2 (09:03→17:04)
[2019-09-06] MEDS: HEPARIN NA (PORCINE) 5,000 UNITS/ML 1ML VIAL SQ SCH ×2 (09:26→21:37)
[2019-09-06] MEDS ORDERED: PT OWN MED DRAWER 7, Y5N ONE ×2 (09:29→13:59)
[2019-09-06] MEDS: ACETAMINOPHEN 325 MG TABLET (FP) PO PRN ×2 (09:30→22:32)
[2019-09-06] MEDS: TAMOXIFEN CITRATE 10 MG TABLET PO SCH (09:30)
--- NOTE | 2019-09-06 10:43 | PN ---
Progress Note (short form) - Note Progress Note: PULMONARY ZOSYN DAY #2 COVID NOT DETECTED VSS/AFEBRILE ANICTERIC B/L WHEEZES S1S2 BS+ NO EDEMA LABD/MEDS/NOTES/IMAGES REVIEWED CXR/CT CHEST NOTED IMP ACUTE HYPPOXEMIC RESPIRATORY FAILURE RUL PNEUMONIA COPD COVID-19 NEGATIVE R SIDED BREAST CA S/P MASTECTOMY ETOH TOBACCO ABUSE HYPONATREMIA PLAN SUPPLEMENTAL O2 ABX INHALED BRONCHODILATORS CULTURES MONITOR LYTES,NA,CBC F/U CHEST X-RAYS Stella HAHN MD
[2019-09-06 12:08] LABS: ANISOCYTOSIS 1+; MACROCYTOSIS 0; PLATELET ESTIMATE DECREASED
--- NOTE | 2019-09-06 12:13 | CONSULT ---
Admitting History and Physical - Primary Care Physician PCP: Tiffanie Gudino - Admission History of Present Illness: Per EMR- 73 year old male, with a significant PMH of R-sided breast cancer (s/p mastectomy), COPD, leukocytosis, alcoholism, and current smoker, admitted for evaluation of fever and shortness of breath. He complains of SOB, fever (tmax 103), body aches, and generalized weakness. Patient was seen in the ED yesterday for the same complaint, but decided to leave AMA. CXR right upper lobe wedge-shaped infiltrate, He returned to ED as his symptoms have been progressively getting worse. Per ID- his wbc is very high ,but has decreased since the admission multiple medical problems coming in with pneumonia,it seems his first covid test was negative Repeat covid test (-) aspiration evaluation Selected Entries 09/05/19 09/05/19 09/05/19 02:07 06:00 09:56 Breakfast 50% Diet Tolerated Fair Lunch Temperature 97.5 F L 97.5 F L Blood Pressure 113/62 112/61 O2 Sat by Pulse Oximetry (%) Oxygen Delivery Method Fraction of Inspired Oxygen (FIO2) Oxygen Flow Rate 09/05/19 09/05/19 09/05/19 10:00 13:00 13:51 Breakfast Diet Tolerated Fair Lunch 50% Temperature 100.6 F H 98.9 F 98.6 F Blood Pressure 107/59 L 107/59 L O2 Sat by Pulse Oximetry (%) Oxygen Delivery Method Fraction of Inspired Oxygen (FIO2) Oxygen Flow Rate 09/05/19 09/05/19 09/05/19 18:25 20:35 20:50 Breakfast Diet Tolerated Fair Lunch Temperature 98.9 F 100.9 F H Blood Pressure 110/52 L 117/64 O2 Sat by Pulse Oximetry (%) Oxygen Delivery Method Fraction of Inspired Oxygen (FIO2) Oxygen Flow Rate 09/05/19 09/06/19 09/06/19 22:21 00:16 02:00 Breakfast Diet Tolerated Lunch Temperature 98.8 F 98.8 F Blood Pressure 119/73 O2 Sat by Pulse 97 Oximetry (%) Oxygen Delivery Method Fraction of 40 Inspired Oxygen (FIO2) Oxygen Flow Rate 09/06/19 09/06/19 09/06/19 05:59 08:34 09:00 Breakfast Diet Tolerated Lunch Temperature 98.1 F Blood Pressure 126/53 L O2 Sat by Pulse 94 L 94 L Oximetry (%) Oxygen Delivery Nasal Cannula Nasal Cannula Method Fraction of Inspired Oxygen (FIO2) Oxygen Flow 4 4 Rate 09/06/19 09/06/19 09:16 10:00 Breakfast 100% 100% Diet Tolerated Well Well Lunch Temperature 100.1 F H Blood Pressure 142/67 O2 Sat by Pulse Oximetry (%) Oxygen Delivery Method Fraction of Inspired Oxygen (FIO2) Oxygen Flow Rate Laboratory Tests 09/04/19 09/05/19 09/05/19 10:28 05:50 05:50 WBC 38.0 H* 30.2 H* COVID-19 (HEATHER) Not detected 09/06/19 06:10 WBC 33.5 H* COVID-19 (HEATHER) History Source: Patient Limitations to Obtaining History: No Limitations - Past Medical History Pulmonary: Yes: COPD Heme/Onc: Yes: Cancer (Prior breast cancer - R mastectomy) Psych: Yes: Addictions - Smoking History Smoking history: Current every day smoker Have you smoked in the past 12 months: Yes Aproximately how many cigarettes per day: 12 - Alcohol/Substance Use Hx Alcohol Use: Yes History - Admission Reason For Visit: PNEUMONIA - Diagnostics X-ray: Report Reviewed CT Scan: Report Reviewed (extensive RUL PNA) - General Mental Status: Alert and Oriented, Awake and Alert, Able to Follow Commands, Forgetful Attention: Intact Ability to Follow Directions: Good Head/Neck Control: WFL - Hearing Hearing: Normal Hearing Aide: No Speech Evaluation - Communication Primary Language: ISRA[place]I Communication: Yes: Within Normal Limits Oral Expression Ability: Yes: No Impairment - Speech Production Able to Make Needs Known: Yes: WNL Intelligibility: Yes: WNL - Speech Characteristics Voice Loudness: Normal Voice Pitch: Yes: Normal Voice Phonatory-based Quality: Yes: Normal Speech Pattern: Normal Speech Clarity: < 100% Nasal Resonance: Normal Rate of Speech: Intact - Language/Auditory Comprehension Follows: Yes: 1 Stage Simple Commands Observation: Able to respond to yes/no queries: Yes, Yes/No Confusion: No, Comprehends Conversational Speech: Yes - Language/Verbal Expression Able to Respond to Simple Queries: Yes: WNL Able to Communicate Wants and Needs: Yes: WNL Functional Communication Status: Yes: WNL - Swallow Evaluation/Bedside Assessment Current Nutritional Intake: Regular, Thin Liquids Oral Secretions: Yes: WFL Dentition: Yes: Missing Teeth (a few teeth, chews well) Facial Symmetry at Rest: Symmetrical Facial Symmetry on Retraction: Symmetrical Sensation: Normal Against Resistance Opening: Normal Against Resistance Closing: Normal Pucker Lips: Normal Smile: Normal Lingual Movement: Normal, Symmetric Lingual Speed of Movement: Normal Lingual Movement Strgth Against Opposition: Normal Lingual Movement Characteristics: Normal Velopharyngeal Movement: Normal Laryngeal Elevation: WFL Laryngeal Movement: Able to Palpate Rate of Intake: WFL Bolus Size: WFL Labial Seal: WFL Chewing: WFL Oral Prep Time: WFL A-P Transit: WFL Timing of Swallow: WFL Coughing/Throat Clear: No (3 oz water test) Change in Voice: No Recommendations - Speech Evaluation, Impression/Plan Impression: Speech/Swallowing overtly intact - Dysphagia Impressions/Plan Swallowing Skills: WF Dysphagia Impressions: No Impairment, Ongoing Evaluation *Silent aspiration: cannot be R/O at bedside - Recommendations Diet Consistency: Regular Medication Administration: Whole with water Liquids: Thin Liquids
--- NOTE | 2019-09-06 12:44 | PN ---
Progress Note, Physician History of Present Illness: says he feels slightly better still with resp issues needing bipap intermittently - Current Medication List Current Medications: Active Medications Acetaminophen (Tylenol -) 650 mg PO Q6H PRN PRN Reason: FEVER Last Admin: 09/06/19 09:30 Dose: 650 mg Documented by: Heparin Sodium (Porcine) (Heparin -) 5,000 unit SQ BID [facility] Last Admin: 09/06/19 09:26 Dose: 5,000 unit Documented by: Piperacillin Sod/Tazobactam (Sod 3.375 gm/ Dextrose) 50 mls @ 100 mls/hr IVPB Q8H-IV [facility]; Protocol Last Admin: 09/06/19 09:27 Dose: 100 mls/hr Documented by: Methylprednisolone Sodium Succinate (Solu-Medrol -) 60 mg IVPUSH Q6H-IV [facility] Last Admin: 09/06/19 09:27 Dose: 60 mg Documented by: Tamoxifen Citrate (Tamoxifen Citrate) 20 mg PO DAILY [facility] Last Admin: 09/06/19 09:30 Dose: 20 mg Documented by: - Objective Vital Signs: Vital Signs Temperature 100.1 F H 09/06/19 10:00 Pulse Rate 103 H 09/06/19 10:00 Respiratory Rate 22 H 09/06/19 10:00 Blood Pressure 142/67 09/06/19 10:00 O2 Sat by Pulse Oximetry (%) 94 L 09/06/19 09:00 Constitutional: Yes: No Distress, Calm Cardiovascular: Yes: S1, S2 Respiratory: Yes: On Nasal O2, Other Gastrointestinal: Yes: Normal Bowel Sounds, Soft Musculoskeletal: Yes: WNL Extremities: Yes: WNL Neurological: Yes: Alert, Oriented Labs: CBC, BMP 09/06/19 06:10 09/06/19 06:10 INR, PTT INR 1.23 (0.83-1.09) H 09/04/19 10:28 Assessment/Plan Problem List - Problems (1) Breast calcification, right Code(s): R92.1 - MAMMOGRAPHIC CALCIFCN FOUND ON DIAGNOSTIC IMAGING OF BREAST (2) Breast cancer in male Code(s): C50.929 - MALIGNANT NEOPLASM OF UNSP SITE OF UNSPECIFIED MALE BREAST (3) Pneumonia Code(s): J18.9 - PNEUMONIA, UNSPECIFIED ORGANISM (4) Sepsis Code(s): A41.9 - SEPSIS, UNSPECIFIED ORGANISM (5) Acute respiratory failure Code(s): J96.00 - ACUTE RESPIRATORY FAILURE, UNSP W HYPOXIA OR HYPERCAPNIA Qualifiers: Respiratory failure complication: hypoxia Qualified Code(s): J96.01 - Acute respiratory failure with hypoxia (6) COPD exacerbation Code(s): J44.1 - CHRONIC OBSTRUCTIVE PULMONARY DISEASE W (ACUTE) EXACERBATION (7) Suspected COVID-19 virus infection Code(s): Z20.828 - CONTACT W AND EXPOSURE TO OTH VIRAL COMMUNICABLE DISEASES (8) COPD with exacerbation Code(s): J44.1 - CHRONIC OBSTRUCTIVE PULMONARY DISEASE W (ACUTE) EXACERBATION plan continue abx await for all results resp support rest as per the team
[2019-09-06] MEDS: ALBUTEROL SO4 HFA INHALER IH PRN ×2 (15:58→21:48)
--- NOTE | 2019-09-06 18:11 | CONSULT ---
Consult - text type - Consultation Consultation Note: The patient is a 73 year old male, with a significant PMH of R-sided breast cancer (s/p mastectomy), COPD, leukocytosis, alcoholism, and current smoker, who presents to the ED for evaluation of fever and shortness of breath. He complains of SOB, fever (tmax 103), body aches, and generalized weakness. Patient was seen in the ED yesterday for the same complaint, but decided to leave AMA. His CXR yesterday demonstrated a right upper lobe wedge-shaped infiltrate, he was given Zosyn in the ER and discharged with Levaquin. He returned , as his symptoms have been progressively getting worse. He is being treated for extensive RUL infiltrate Allergies: Mustard Surgical History: None reported Social History: Alcoholism. Current everyday smoker (1ppd) PCP: Dr. Kapadia Past History - Past Medical History Allergies/Adverse Reactions: Allergies Allergy/AdvReac Type Severity Reaction Status Date / Time mustard Allergy Verified 09/04/19 10:43 Home Medications: Ambulatory Orders Albuterol 2.5/Ipratropium 0.5 [Duoneb -] 1 neb NEB Q6H PRN #30 vial 07/15/16 Levofloxacin [Levaquin] 750 mg PO DAILY #5 tablet MDD 1 tab 09/04/19 Tamoxifen Citrate 20 mg PO DAILY 09/04/19 Asthma: Yes Cancer: Yes (RT BREAST CA) COPD: Yes - Immunization History Td Vaccination: Yes TDAP Vaccination: Yes Immunization Up to Date: Yes - Psycho Social/Smoking Cessation Hx Smoking History: Never smoked - Vital Signs Vital Signs Temperature 100.1 F H 09/06/19 10:00 Pulse Rate 103 H 09/06/19 10:00 Respiratory Rate 22 H 09/06/19 10:00 Blood Pressure 142/67 09/06/19 10:00 O2 Sat by Pulse Oximetry (%) 94 L 09/06/19 09:00 Labs: CBC, BMP 09/06/19 06:10 09/06/19 06:10 INR, PTT INR 1.23 (0.83-1.09) H 09/04/19 10:28 Cor: RSR, No murmurs, No gallops Lungs: decreased rt. base Abd: Soft, Normal bowel sounds, No organomegaly Ext:No significant edema - RADIOLOGY Radiograph Interpretation: EXAM#: TYPE/EXAM: RESULT: [id number] RAD/CHEST X-RAY PORTABLE* Rule out sepsis Portable chest x-ray, AP semiupright Right lung apex was not included. Since prior chest x-ray dated , airspace disease again seen in the right upper and midlung. Bilateral interstitial opacities are again seen. The cardiac silhouette remains within normal limits in size. Impression: No significant interval change Reported By: Alexy Purdy MD 09/04/19 11:11 A/P 73 y/o Patient with COPD, alcohol use, Leukocytosis apparently chronic, and without consistent trend, but with concerning prior and current lymphocytosis. Presentlyneutrophilia and lymphocytosis. Need to check flow cytometry - to characterize population of lymphocytes. Have index of suspicion for CLL. check flow/FISH/cytogenetics LDH -normal h/o right breast cancer--on tamoxifen
--- NOTE | 2019-09-06 20:59 | PN ---
Progress Note, Physician - Current Medication List Current Medications: Active Medications Acetaminophen (Tylenol -) 650 mg PO Q6H PRN PRN Reason: FEVER Last Admin: 09/06/19 09:30 Dose: 650 mg Documented by: Albuterol Sulfate (Ventolin Hfa Inhaler -) 2 puff IH Q4H PRN PRN Reason: SHORTNESS OF BREATH Last Admin: 09/06/19 15:58 Dose: 2 puff Documented by: Heparin Sodium (Porcine) (Heparin -) 5,000 unit SQ BID [facility] Last Admin: 09/06/19 09:26 Dose: 5,000 unit Documented by: Piperacillin Sod/Tazobactam (Sod 3.375 gm/ Dextrose) 50 mls @ 100 mls/hr IVPB Q8H-IV [facility]; Protocol Last Admin: 09/06/19 17:22 Dose: 100 mls/hr Documented by: Methylprednisolone Sodium Succinate (Solu-Medrol -) 60 mg IVPUSH Q6H-IV [facility] Last Admin: 09/06/19 14:48 Dose: 60 mg Documented by: Tamoxifen Citrate (Tamoxifen Citrate) 20 mg PO DAILY [facility] Last Admin: 09/06/19 09:30 Dose: 20 mg Documented by: - Objective Vital Signs: Vital Signs Temperature 99.0 F 09/06/19 18:00 Pulse Rate 107 H 09/06/19 18:00 Respiratory Rate 20 09/06/19 20:31 Blood Pressure 138/75 09/06/19 18:00 O2 Sat by Pulse Oximetry (%) 93 L 09/06/19 20:31 Labs: CBC, BMP 09/06/19 06:10 09/06/19 06:10 INR, PTT INR 1.23 (0.83-1.09) H 09/04/19 10:28 Problem List - Problems (1) Pneumonia Code(s): J18.9 - PNEUMONIA, UNSPECIFIED ORGANISM (2) COPD (chronic obstructive pulmonary disease) Code(s): J44.9 - CHRONIC OBSTRUCTIVE PULMONARY DISEASE, UNSPECIFIED (3) Breast cancer in male Code(s): C50.929 - MALIGNANT NEOPLASM OF UNSP SITE OF UNSPECIFIED MALE BREAST
[2019-09-06] MEDS ORDERED: LORazepam 2 MG/ML SDV VIAL IVPUSH ONE (21:45)
[2019-09-07] MEDS ORDERED: PIPERACILLIN/TAZOBACTAM 3.375 GM VIAL IVPB ONE ×3 (00:56→17:05)
[2019-09-07] MEDS ORDERED: DEXTROSE 5%-WATER - 50 ML IVPB ONE ×3 (00:57→17:05)
[2019-09-07] MEDS: PIPERACILLIN/TAZOB 3.375 GM 3.375 GM in DEXTROSE 5%-WATER - 50 ML IVPB SCH ×3 (01:04→17:17)
[2019-09-07] MEDS: methylPREDNISolone NA SUCC 40 MG/1 ML VIAL IVPUSH SCH ×4 (03:31→21:29)
[2019-09-07] MEDS: ALBUTEROL SO4 HFA INHALER IH PRN (05:46)
--- NOTE | 2019-09-07 07:21 | PN ---
Progress Note, Physician History of Present Illness: pulmonary awake,less dyspneic on nasal o2 - Current Medication List Current Medications: Active Medications Acetaminophen (Tylenol -) 650 mg PO Q6H PRN PRN Reason: FEVER Last Admin: 09/06/19 22:32 Dose: 650 mg Documented by: Albuterol Sulfate (Ventolin Hfa Inhaler -) 2 puff IH Q4H PRN PRN Reason: SHORTNESS OF BREATH Last Admin: 09/07/19 05:46 Dose: 2 puff Documented by: Heparin Sodium (Porcine) (Heparin -) 5,000 unit SQ BID [facility] Last Admin: 09/06/19 21:37 Dose: 5,000 unit Documented by: Piperacillin Sod/Tazobactam (Sod 3.375 gm/ Dextrose) 50 mls @ 100 mls/hr IVPB Q8H-IV [facility]; Protocol Last Admin: 09/07/19 01:04 Dose: 100 mls/hr Documented by: Methylprednisolone Sodium Succinate (Solu-Medrol -) 60 mg IVPUSH Q6H-IV [facility] Last Admin: 09/07/19 03:31 Dose: 60 mg Documented by: Tamoxifen Citrate (Tamoxifen Citrate) 20 mg PO DAILY [facility] Last Admin: 09/06/19 09:30 Dose: 20 mg Documented by: - Objective Vital Signs: Vital Signs Temperature 99.1 F 09/07/19 01:13 Pulse Rate 81 09/07/19 01:13 Respiratory Rate 19 09/07/19 01:13 Blood Pressure 116/66 09/07/19 01:13 O2 Sat by Pulse Oximetry (%) 94 L 09/06/19 20:34 Constitutional: Yes: Well Nourished, Mild Distress Eyes: Yes: WNL HENT: Yes: WNL Neck: Yes: WNL, Lymphadenopathy Cardiovascular: Yes: S1, S2 Respiratory: Yes: Wheezes (bilateral wheezes) Gastrointestinal: Yes: Normal Bowel Sounds, Soft Extremities: Yes: WNL Edema: No Labs: INR, PTT Problem List - Problems (1) Breast calcification, right Code(s): R92.1 - MAMMOGRAPHIC CALCIFCN FOUND ON DIAGNOSTIC IMAGING OF BREAST (2) Breast cancer in male Code(s): C50.929 - MALIGNANT NEOPLASM OF UNSP SITE OF UNSPECIFIED MALE BREAST (3) Pneumonia Code(s): J18.9 - PNEUMONIA, UNSPECIFIED ORGANISM (4) Sepsis Code(s): A41.9 - SEPSIS, UNSPECIFIED ORGANISM (5) Acute respiratory failure Code(s): J96.00 - ACUTE RESPIRATORY FAILURE, UNSP W HYPOXIA OR HYPERCAPNIA Qualifiers: Respiratory failure complication: hypoxia Qualified Code(s): J96.01 - Acute respiratory failure with hypoxia (6) COPD exacerbation Code(s): J44.1 - CHRONIC OBSTRUCTIVE PULMONARY DISEASE W (ACUTE) EXACERBATION (7) Suspected COVID-19 virus infection Code(s): Z20.828 - CONTACT W AND EXPOSURE TO OTH VIRAL COMMUNICABLE DISEASES (8) COPD with exacerbation Code(s): J44.1 - CHRONIC OBSTRUCTIVE PULMONARY DISEASE W (ACUTE) EXACERBATION Assessment/Plan IMP ACUTE HYPPOXEMIC RESPIRATORY FAILURE RUL PNEUMONIA COPD R SIDED BREAST CA S/P MASTECTOMY ETOH TOBACCO ABUSE HYPONATREMIA PLAN SUPPLEMENTAL O2 ABX INHALED BRONCHODILATORS COVID PCR negative MONITOR LYTES,NA,CBC F/U CHEST X-RAYS DR RÍOS Problem List - Problems (1) Breast calcification, right Code(s): R92.1 - MAMMOGRAPHIC CALCIFCN FOUND ON DIAGNOSTIC IMAGING OF BREAST (2) Breast cancer in male Code(s): C50.929 - MALIGNANT NEOPLASM OF UNSP SITE OF UNSPECIFIED MALE BREAST (3) Pneumonia Code(s): J18.9 - PNEUMONIA, UNSPECIFIED ORGANISM (4) Sepsis Code(s): A41.9 - SEPSIS, UNSPECIFIED ORGANISM (5) Acute respiratory failure Code(s): J96.00 - ACUTE RESPIRATORY FAILURE, UNSP W HYPOXIA OR HYPERCAPNIA Qualifiers: Respiratory failure complication: hypoxia Qualified Code(s): J96.01 - Acute respiratory failure with hypoxia (6) COPD exacerbation Code(s): J44.1 - CHRONIC OBSTRUCTIVE PULMONARY DISEASE W (ACUTE) EXACERBATION (7) Suspected COVID-19 virus infection Code(s): Z20.828 - CONTACT W AND EXPOSURE TO OTH VIRAL COMMUNICABLE DISEASES (8) COPD with exacerbation Code(s): J44.1 - CHRONIC OBSTRUCTIVE PULMONARY DISEASE W (ACUTE) EXACERBATION
[2019-09-07] MEDS: ACETAMINOPHEN 325 MG TABLET (FP) PO PRN ×3 (07:27→21:33)
[2019-09-07 07:32] LABS: POTASSIUM 4.9 mmol/L (3.5-5.1)
[2019-09-07 07:34] LABS: HEMATOCRIT 45.4 % (35.4-49); HEMOGLOBIN 14.7 GM/dL (11.7-16.9); LYMPH % 45.4 % (8-40); MCH 30.4 pg (25.7-33.7); MCHC 32.4 g/dl (32.0-35.9); MEAN CELL VOLUME 93.9 fl (80-96); MEAN PLT VOLUME 12.6 fl (7.5-11.1); MONO % 0.5 % (3.8-10.2); NEUT % 54.1 % (42.8-82.8); PLATELET COUNT 153 K/MM3 (134-434); RBC 4.84 M/mm3 (4.00-5.60); RDW 16.7 % (11.9-15.9)
[2019-09-07 08:26] LABS: BILIRUBIN,TOTAL 0.6 mg/dL (0.2-1); BLOOD UREA NITROGEN 26.8 mg/dL (7-18); CALCIUM 8.9 mg/dL (8.5-10.1); CREATININE 1.1 mg/dL (0.55-1.3); TOT PROT 5.8 g/dl (6.4-8.2)
[2019-09-07 09:36] LABS: ANISOCYTOSIS 0; MACROCYTOSIS 0; PLATELET ESTIMATE DECREASED; TOXIC GRANULATION 2+
[2019-09-07] MEDS: HEPARIN NA (PORCINE) 5,000 UNITS/ML 1ML VIAL SQ SCH ×2 (10:06→21:34)
[2019-09-07] MEDS: ALBUTEROL SO4 2.5/IPRATROPIUM 0.5 INH SOL 3 ML VIAL.NEB. NEB SCH ×3 (12:02→20:28)
[2019-09-07] MEDS: TAMOXIFEN CITRATE 10 MG TABLET PO SCH (12:17)
--- NOTE | 2019-09-07 22:47 | PN ---
Progress Note, Physician - Current Medication List Current Medications: Active Medications Acetaminophen (Tylenol -) 650 mg PO Q6H PRN PRN Reason: FEVER Last Admin: 09/07/19 21:33 Dose: 650 mg Documented by: Albuterol Sulfate (Ventolin Hfa Inhaler -) 2 puff IH Q4H PRN PRN Reason: SHORTNESS OF BREATH Last Admin: 09/07/19 05:46 Dose: 2 puff Documented by: Albuterol/Ipratropium (Duoneb -) 1 amp NEB RQID [facility] Last Admin: 09/07/19 20:28 Dose: 1 amp Documented by: Heparin Sodium (Porcine) (Heparin -) 5,000 unit SQ BID [facility] Last Admin: 09/07/19 21:34 Dose: 5,000 unit Documented by: Piperacillin Sod/Tazobactam (Sod 3.375 gm/ Dextrose) 50 mls @ 100 mls/hr IVPB Q8H-IV [facility]; Protocol Last Admin: 09/07/19 17:17 Dose: 100 mls/hr Documented by: Methylprednisolone Sodium Succinate (Solu-Medrol -) 60 mg IVPUSH Q6H-IV [facility] Last Admin: 09/07/19 21:29 Dose: 60 mg Documented by: Tamoxifen Citrate (Tamoxifen Citrate) 20 mg PO DAILY [facility] Last Admin: 09/07/19 12:17 Dose: 20 mg Documented by: - Objective Vital Signs: Vital Signs Temperature 98.4 F 09/07/19 17:10 Pulse Rate 94 H 09/07/19 17:10 Respiratory Rate 09/07/19 17:10 Blood Pressure 111/63 09/07/19 17:10 O2 Sat by Pulse Oximetry (%) 89 L 09/07/19 20:34 Labs: CBC, BMP 09/07/19 05:25 09/07/19 05:25 INR, PTT INR 1.23 (0.83-1.09) H 09/04/19 10:28 Problem List - Problems (1) Pneumonia Code(s): J18.9 - PNEUMONIA, UNSPECIFIED ORGANISM (2) COPD (chronic obstructive pulmonary disease) Code(s): J44.9 - CHRONIC OBSTRUCTIVE PULMONARY DISEASE, UNSPECIFIED (3) Breast cancer in male Code(s): C50.929 - MALIGNANT NEOPLASM OF UNSP SITE OF UNSPECIFIED MALE BREAST
[2019-09-08] MEDS ORDERED: PIPERACILLIN/TAZOBACTAM 3.375 GM VIAL IVPB ONE ×2 (01:58→08:47)
[2019-09-08] MEDS ORDERED: DEXTROSE 5%-WATER - 50 ML IVPB ONE ×2 (01:58→08:48)
[2019-09-08] MEDS: PIPERACILLIN/TAZOB 3.375 GM 3.375 GM in DEXTROSE 5%-WATER - 50 ML IVPB SCH ×2 (02:10→09:07)
[2019-09-08] MEDS: methylPREDNISolone NA SUCC 40 MG/1 ML VIAL IVPUSH SCH ×3 (03:16→17:03)
[2019-09-08] MEDS: ACETAMINOPHEN 325 MG TABLET (FP) PO PRN (06:24)
[2019-09-08 07:01] LABS: ALBUMIN 1.9 g/dl (3.4-5.0); BILIRUBIN,TOTAL 0.9 mg/dL (0.2-1); BLOOD UREA NITROGEN 24.9 mg/dL (7-18); CALCIUM 8.5 mg/dL (8.5-10.1); CREATININE 1.1 mg/dL (0.55-1.3); POTASSIUM 4.7 mmol/L (3.5-5.1)
--- NOTE | 2019-09-08 07:02 | PN ---
Progress Note, Physician History of Present Illness: PULMONARY DROWSY,PLACED ON BIPAP SECONDARY TO WORSENING HYPOXEMIA,TMAX 101.1 - Current Medication List Current Medications: Active Medications Acetaminophen (Tylenol -) 650 mg PO Q6H PRN PRN Reason: FEVER Last Admin: 09/08/19 06:24 Dose: 650 mg Documented by: Albuterol Sulfate (Ventolin Hfa Inhaler -) 2 puff IH Q4H PRN PRN Reason: SHORTNESS OF BREATH Last Admin: 09/07/19 05:46 Dose: 2 puff Documented by: Albuterol/Ipratropium (Duoneb -) 1 amp NEB RQID [facility] Last Admin: 09/07/19 20:28 Dose: 1 amp Documented by: Heparin Sodium (Porcine) (Heparin -) 5,000 unit SQ BID [facility] Last Admin: 09/07/19 21:34 Dose: 5,000 unit Documented by: Piperacillin Sod/Tazobactam (Sod 3.375 gm/ Dextrose) 50 mls @ 100 mls/hr IVPB Q8H-IV [facility]; Protocol Last Admin: 09/08/19 02:10 Dose: 100 mls/hr Documented by: Methylprednisolone Sodium Succinate (Solu-Medrol -) 60 mg IVPUSH Q6H-IV [facility] Last Admin: 09/08/19 03:16 Dose: 60 mg Documented by: Tamoxifen Citrate (Tamoxifen Citrate) 20 mg PO DAILY [facility] Last Admin: 09/07/19 12:17 Dose: 20 mg Documented by: - Objective Vital Signs: Vital Signs Temperature 101.1 F H 09/08/19 06:08 Pulse Rate 108 H 09/08/19 06:08 Respiratory Rate 09/08/19 06:08 Blood Pressure 127/69 09/08/19 06:08 O2 Sat by Pulse Oximetry (%) 90 L 09/08/19 06:49 Constitutional: Yes: Well Nourished, Other (DROWSY) Eyes: Yes: WNL HENT: Yes: WNL Neck: Yes: WNL Cardiovascular: Yes: Regular Rate and Rhythm, S1, S2 Respiratory: Yes: Rhonchi, Wheezes (SCATTERED YOCASTA WHHEZES AND RHONCHI) Gastrointestinal: Yes: Normal Bowel Sounds, Soft Extremities: Yes: WNL Edema: No Labs: CBC, BMP 09/08/19 05:30 INR, PTT INR 1.23 (0.83-1.09) H 09/04/19 10:28 Laboratory Tests 09/08/19 05:30 WBC 40.8 H* Hgb 15.2 Hct 46.1 Neutrophils % (Manual) 25.5 L Lymphocytes % 48.0 H Lymphocytes % (Manual) 64.3 H Problem List - Problems (1) Breast calcification, right Code(s): R92.1 - MAMMOGRAPHIC CALCIFCN FOUND ON DIAGNOSTIC IMAGING OF BREAST (2) Breast cancer in male Code(s): C50.929 - MALIGNANT NEOPLASM OF UNSP SITE OF UNSPECIFIED MALE BREAST (3) Pneumonia Code(s): J18.9 - PNEUMONIA, UNSPECIFIED ORGANISM (4) Sepsis Code(s): A41.9 - SEPSIS, UNSPECIFIED ORGANISM (5) Acute respiratory failure Code(s): J96.00 - ACUTE RESPIRATORY FAILURE, UNSP W HYPOXIA OR HYPERCAPNIA Qualifiers: Respiratory failure complication: hypoxia Qualified Code(s): J96.01 - Acute respiratory failure with hypoxia (6) COPD exacerbation Code(s): J44.1 - CHRONIC OBSTRUCTIVE PULMONARY DISEASE W (ACUTE) EXACERBATION (7) Suspected COVID-19 virus infection Code(s): Z20.828 - CONTACT W AND EXPOSURE TO OTH VIRAL COMMUNICABLE DISEASES Assessment/Plan IMP ACUTE HYPPOXEMIC RESPIRATORY FAILURE RUL PNEUMONIA SEPSIS COPD R SIDED BREAST CA S/P MASTECTOMY ETOH TOBACCO ABUSE HYPONATREMIA PLAN SUPPLEMENTAL O2 ABX INHALED BRONCHODILATORS COVID PCR negative MONITOR LYTES,NA,CBC F/U CHEST X-RAY TODAY TAPER STEROIDS DR RÍOS Problem List - Problems (1) Breast calcification, right Code(s): R92.1 - MAMMOGRAPHIC CALCIFCN FOUND ON DIAGNOSTIC IMAGING OF BREAST (2) Breast cancer in male Code(s): C50.929 - MALIGNANT NEOPLASM OF UNSP SITE OF UNSPECIFIED MALE BREAST (3) Pneumonia Code(s): J18.9 - PNEUMONIA, UNSPECIFIED ORGANISM (4) Sepsis Code(s): A41.9 - SEPSIS, UNSPECIFIED ORGANISM (5) Acute respiratory failure Code(s): J96.00 - ACUTE RESPIRATORY FAILURE, UNSP W HYPOXIA OR HYPERCAPNIA Qualifiers: Respiratory failure complication: hypoxia Qualified Code(s): J96.01 - Acute respiratory failure with hypoxia (6) COPD exacerbation Code(s): J44.1 - CHRONIC OBSTRUCTIVE PULMONARY DISEASE W (ACUTE) EXACERBATION (7) Suspected COVID-19 virus infection Code(s): Z20.828 - CONTACT W AND EXPOSURE TO OTH VIRAL COMMUNICABLE DISEASES (8) COPD with exacerbation Code(s): J44.1 - CHRONIC OBSTRUCTIVE PULMONARY DISEASE W (ACUTE) EXACERBATION
[2019-09-08 07:57] LABS: BASO % 0.2 % (0-2.0); HEMATOCRIT 46.1 % (35.4-49); HEMOGLOBIN 15.2 GM/dL (11.7-16.9); MCH 30.6 pg (25.7-33.7); MCHC 32.9 g/dl (32.0-35.9); MEAN CELL VOLUME 93.1 fl (80-96); MEAN PLT VOLUME 12.1 fl (7.5-11.1); MONO % 0.8 % (3.8-10.2); PLATELET COUNT 149 K/MM3 (134-434); RBC 4.95 M/mm3 (4.00-5.60); RDW 16.6 % (11.9-15.9)
[2019-09-08 08:10] LABS: WHITE BLOOD COUNT 40.8 K/mm3 (4.0-10.0)
[2019-09-08] MEDS: ALBUTEROL SO4 2.5/IPRATROPIUM 0.5 INH SOL 3 ML VIAL.NEB. NEB SCH ×4 (08:15→21:15)
[2019-09-08] MEDS ORDERED: PT OWN MED DRAWER 7, Y5N ONE (08:47)
[2019-09-08] MEDS: HEPARIN NA (PORCINE) 5,000 UNITS/ML 1ML VIAL SQ SCH ×2 (09:06→21:39)
[2019-09-08] MEDS: TAMOXIFEN CITRATE 10 MG TABLET PO SCH (09:06)
--- NOTE | 2019-09-08 09:49 | PN ---
Progress Note, Physician History of Present Illness: spiking fevers more lethargic becoming hypoxi - Current Medication List Current Medications: Active Medications Acetaminophen (Tylenol -) 650 mg PO Q6H PRN PRN Reason: FEVER Last Admin: 09/08/19 06:24 Dose: 650 mg Documented by: Albuterol Sulfate (Ventolin Hfa Inhaler -) 2 puff IH Q4H PRN PRN Reason: SHORTNESS OF BREATH Last Admin: 09/07/19 05:46 Dose: 2 puff Documented by: Albuterol/Ipratropium (Duoneb -) 1 amp NEB RQID [facility] Last Admin: 09/08/19 08:15 Dose: 1 amp Documented by: Heparin Sodium (Porcine) (Heparin -) 5,000 unit SQ BID [facility] Last Admin: 09/08/19 09:06 Dose: 5,000 unit Documented by: Meropenem 1 gm/ Dextrose 100 mls @ 200 mls/hr IVPB Q8H-IV [facility] Vancomycin HCl 1,250 mg/ (Dextrose) 250 mls @ 166.667 mls/hr IVPB Q24H [facility]; Protocol Methylprednisolone Sodium Succinate (Solu-Medrol -) 60 mg IVPUSH Q6H-IV [facility] Last Admin: 09/08/19 08:52 Dose: 60 mg Documented by: Tamoxifen Citrate (Tamoxifen Citrate) 20 mg PO DAILY [facility] Last Admin: 09/08/19 09:06 Dose: 20 mg Documented by: - Objective Vital Signs: Vital Signs Temperature 98.6 F 09/08/19 08:58 Pulse Rate 94 H 09/08/19 08:58 Respiratory Rate 22 H 09/08/19 08:58 Blood Pressure 105/58 L 09/08/19 08:58 O2 Sat by Pulse Oximetry (%) 90 L 09/08/19 08:15 Constitutional: Yes: No Distress, Calm Eyes: Yes: Conjunctiva Clear HENT: Yes: Atraumatic, Normocephalic Neck: Yes: Supple, Trachea Midline Cardiovascular: Yes: Regular Rate and Rhythm Respiratory: Yes: Regular, CTA Bilaterally Gastrointestinal: Yes: Normal Bowel Sounds, Soft Musculoskeletal: Yes: WNL Extremities: Yes: WNL Neurological: Yes: Alert, Oriented Psychiatric: Yes: Alert, Oriented Labs: CBC, BMP 09/08/19 05:30 09/08/19 05:30 INR, PTT INR 1.23 (0.83-1.09) H 09/04/19 10:28 Assessment/Plan Problem List - Problems (1) Breast calcification, right Code(s): R92.1 - MAMMOGRAPHIC CALCIFCN FOUND ON DIAGNOSTIC IMAGING OF BREAST (2) Breast cancer in male Code(s): C50.929 - MALIGNANT NEOPLASM OF UNSP SITE OF UNSPECIFIED MALE BREAST (3) Pneumonia Code(s): J18.9 - PNEUMONIA, UNSPECIFIED ORGANISM (4) Sepsis Code(s): A41.9 - SEPSIS, UNSPECIFIED ORGANISM (5) Acute respiratory failure Code(s): J96.00 - ACUTE RESPIRATORY FAILURE, UNSP W HYPOXIA OR HYPERCAPNIA Qualifiers: Respiratory failure complication: hypoxia Qualified Code(s): J96.01 - Acute respiratory failure with hypoxia (6) COPD exacerbation Code(s): J44.1 - CHRONIC OBSTRUCTIVE PULMONARY DISEASE W (ACUTE) EXACERBATION (7) Suspected COVID-19 virus infection Code(s): Z20.828 - CONTACT W AND EXPOSURE TO OTH VIRAL COMMUNICABLE DISEASES (8) COPD with exacerbation Code(s): J44.1 - CHRONIC OBSTRUCTIVE PULMONARY DISEASE W (ACUTE) EXACERBATION plan will change abx to yobani/vanco rest as per the team
[2019-09-08 10:00] LABS: ANISOCYTOSIS 1+; MACROCYTOSIS 0; OVALOCYTE 1+; PLATELET ESTIMATE DECREASED; TEAR DROP CELLS 1+
[2019-09-08] MEDS ORDERED: MEROPENEM 1 GM VIAL (RESTRICTED TO ID) IVPB ONE ×2 (10:12→16:53)
[2019-09-08] MEDS ORDERED: DEXTROSE 5%-WATER 100 ML IVPB ONE ×2 (10:13→16:53)
[2019-09-08] MEDS: MEROPENEM 1 GM in DEXTROSE 5%-WATER 100 ML IVPB SCH ×2 (10:14→17:03)
[2019-09-08] MEDS: VANCOMYCIN HCL 1,250 MG in DEXTROSE 5%-WATER - 250 ML IVPB SCH (10:51)
--- NOTE | 2019-09-08 19:05 | PN ---
Progress Note, Physician History of Present Illness: Pt on BIPAP Pt agitates - Current Medication List Current Medications: Active Medications Acetaminophen (Tylenol -) 650 mg PO Q6H PRN PRN Reason: FEVER Last Admin: 09/08/19 06:24 Dose: 650 mg Documented by: Albuterol Sulfate (Ventolin Hfa Inhaler -) 2 puff IH Q4H PRN PRN Reason: SHORTNESS OF BREATH Last Admin: 09/07/19 05:46 Dose: 2 puff Documented by: Albuterol/Ipratropium (Duoneb -) 1 amp NEB RQID [facility] Last Admin: 09/08/19 15:50 Dose: 1 amp Documented by: Heparin Sodium (Porcine) (Heparin -) 5,000 unit SQ BID [facility] Last Admin: 09/08/19 09:06 Dose: 5,000 unit Documented by: Meropenem 1 gm/ Dextrose 100 mls @ 200 mls/hr IVPB Q8H-IV [facility] Last Admin: 09/08/19 17:03 Dose: 200 mls/hr Documented by: Vancomycin HCl 1,250 mg/ (Dextrose) 250 mls @ 166.667 mls/hr IVPB Q24H [facility]; Protocol Last Admin: 09/08/19 10:51 Dose: 166.667 mls/hr Documented by: Methylprednisolone Sodium Succinate (Solu-Medrol -) 60 mg IVPUSH Q8H-IV [facility] Last Admin: 09/08/19 17:03 Dose: 60 mg Documented by: Tamoxifen Citrate (Tamoxifen Citrate) 20 mg PO DAILY [facility] Last Admin: 09/08/19 09:06 Dose: 20 mg Documented by: - Objective Vital Signs: Vital Signs Temperature 100.3 F H 09/08/19 17:00 Pulse Rate 109 H 09/08/19 17:00 Respiratory Rate 09/08/19 17:00 Blood Pressure 111/61 09/08/19 17:00 O2 Sat by Pulse Oximetry (%) 92 L 09/08/19 15:55 Cardiovascular: Yes: Tachycardia Respiratory: Yes: Diminished Gastrointestinal: Yes: WNL, Normal Bowel Sounds, Soft Labs: CBC, BMP 09/08/19 05:30 09/08/19 05:30 INR, PTT INR 1.23 (0.83-1.09) H 09/04/19 10:28 Problem List - Problems (1) Pneumonia Assessment/Plan: CXR showed b/l interstitial opacities COVID 19 negative Cont albuterol inhaler Cont IV meropenem/vanco ?Increasaed WBC Heme consult Code(s): J18.9 - PNEUMONIA, UNSPECIFIED ORGANISM (2) COPD (chronic obstructive pulmonary disease) Assessment/Plan: Cont inhaler Cont IV solumedrol Code(s): J44.9 - CHRONIC OBSTRUCTIVE PULMONARY DISEASE, UNSPECIFIED (3) Breast cancer in male Assessment/Plan: Cont tamoxifen Code(s): C50.929 - MALIGNANT NEOPLASM OF UNSP SITE OF UNSPECIFIED MALE BREAST
[2019-09-09] MEDS ORDERED: DEXTROSE 5%-WATER 100 ML IVPB ONE ×3 (01:02→18:05)
[2019-09-09] MEDS ORDERED: MEROPENEM 1 GM VIAL (RESTRICTED TO ID) IVPB ONE ×3 (01:02→18:05)
[2019-09-09] MEDS: MEROPENEM 1 GM in DEXTROSE 5%-WATER 100 ML IVPB SCH ×3 (01:07→18:28)
[2019-09-09] MEDS: methylPREDNISolone NA SUCC 40 MG/1 ML VIAL IVPUSH SCH ×3 (01:08→18:29)
[2019-09-09] MEDS: ACETAMINOPHEN 325 MG TABLET (FP) PO PRN (01:13)
[2019-09-09] MEDS: ALBUTEROL SO4 2.5/IPRATROPIUM 0.5 INH SOL 3 ML VIAL.NEB. NEB SCH ×4 (08:05→20:45)
--- NOTE | 2019-09-09 09:02 | PN ---
Progress Note, Physician History of Present Illness: still spiking fevers but mental status much better - Current Medication List Current Medications: Active Medications Acetaminophen (Tylenol -) 650 mg PO Q6H PRN PRN Reason: FEVER Last Admin: 09/09/19 01:13 Dose: 650 mg Documented by: Albuterol Sulfate (Ventolin Hfa Inhaler -) 2 puff IH Q4H PRN PRN Reason: SHORTNESS OF BREATH Last Admin: 09/07/19 05:46 Dose: 2 puff Documented by: Albuterol/Ipratropium (Duoneb -) 1 amp NEB RQID [facility] Last Admin: 09/08/19 21:15 Dose: 1 amp Documented by: Heparin Sodium (Porcine) (Heparin -) 5,000 unit SQ BID [facility] Last Admin: 09/08/19 21:39 Dose: 5,000 unit Documented by: Meropenem 1 gm/ Dextrose 100 mls @ 200 mls/hr IVPB Q8H-IV [facility] Last Admin: 09/09/19 01:07 Dose: 200 mls/hr Documented by: Vancomycin HCl 1,250 mg/ (Dextrose) 250 mls @ 166.667 mls/hr IVPB Q24H [facility]; Protocol Last Admin: 09/08/19 10:51 Dose: 166.667 mls/hr Documented by: Methylprednisolone Sodium Succinate (Solu-Medrol -) 60 mg IVPUSH Q8H-IV [facility] Last Admin: 09/09/19 01:08 Dose: 60 mg Documented by: Tamoxifen Citrate (Tamoxifen Citrate) 20 mg PO DAILY [facility] Last Admin: 09/08/19 09:06 Dose: 20 mg Documented by: - Objective Vital Signs: Vital Signs Temperature 100 F H 09/09/19 03:40 Pulse Rate 90 09/09/19 01:00 Respiratory Rate 20 09/09/19 01:00 Blood Pressure 130/71 09/09/19 01:00 O2 Sat by Pulse Oximetry (%) 90 L 09/09/19 04:40 Constitutional: Yes: No Distress, Calm Cardiovascular: Yes: S1, S2 Respiratory: Yes: Regular, On Nasal O2, Poor Air Entry Gastrointestinal: Yes: Normal Bowel Sounds, Soft Musculoskeletal: Yes: WNL Extremities: Yes: WNL Neurological: Yes: Alert, Oriented Psychiatric: Yes: Alert, Oriented Labs: CBC, BMP 09/08/19 05:30 09/08/19 05:30 INR, PTT INR 1.23 (0.83-1.09) H 09/04/19 10:28 Assessment/Plan Problem List - Problems (1) Breast calcification, right Code(s): R92.1 - MAMMOGRAPHIC CALCIFCN FOUND ON DIAGNOSTIC IMAGING OF BREAST (2) Breast cancer in male Code(s): C50.929 - MALIGNANT NEOPLASM OF UNSP SITE OF UNSPECIFIED MALE BREAST (3) Pneumonia Code(s): J18.9 - PNEUMONIA, UNSPECIFIED ORGANISM (4) Sepsis Code(s): A41.9 - SEPSIS, UNSPECIFIED ORGANISM (5) Acute respiratory failure Code(s): J96.00 - ACUTE RESPIRATORY FAILURE, UNSP W HYPOXIA OR HYPERCAPNIA Qualifiers: Respiratory failure complication: hypoxia Qualified Code(s): J96.01 - Acute respiratory failure with hypoxia (6) COPD exacerbation Code(s): J44.1 - CHRONIC OBSTRUCTIVE PULMONARY DISEASE W (ACUTE) EXACERBATION (7) Suspected COVID-19 virus infection Code(s): Z20.828 - CONTACT W AND EXPOSURE TO OTH VIRAL COMMUNICABLE DISEASES (8) COPD with exacerbation Code(s): J44.1 - CHRONIC OBSTRUCTIVE PULMONARY DISEASE W (ACUTE) EXACERBATION plan continue abx monitor fevers await for cbc rest as per the team
[2019-09-09] MEDS ORDERED: PT OWN MED DRAWER 7, Y5N ONE (09:23)
[2019-09-09] MEDS: TAMOXIFEN CITRATE 10 MG TABLET PO SCH (09:37)
[2019-09-09] MEDS: HEPARIN NA (PORCINE) 5,000 UNITS/ML 1ML VIAL SQ SCH ×2 (09:40→21:32)
[2019-09-09] MEDS: VANCOMYCIN HCL 1,250 MG in DEXTROSE 5%-WATER - 250 ML IVPB SCH (09:40)
--- NOTE | 2019-09-09 11:06 | PN ---
Progress Note, BRUSHER TENDER - Note Progress Note: Selected Entries 09/05/19 09/05/19 09/05/19 02:07 06:00 10:00 Breakfast Diet Tolerated Lunch Supper Temperature 97.5 F L 97.5 F L 100.6 F H Blood Pressure O2 Sat by Pulse Oximetry (%) Oxygen Delivery Method Fraction of Inspired Oxygen (FIO2) 09/05/19 09/05/19 09/05/19 13:00 13:51 18:25 Breakfast Diet Tolerated Lunch Supper Temperature 98.9 F 98.6 F 98.9 F Blood Pressure O2 Sat by Pulse Oximetry (%) Oxygen Delivery Method Fraction of Inspired Oxygen (FIO2) 09/05/19 09/05/19 09/06/19 20:35 22:21 02:00 Breakfast Diet Tolerated Lunch Supper Temperature 100.9 F H 98.8 F 98.8 F Blood Pressure O2 Sat by Pulse Oximetry (%) Oxygen Delivery Method Fraction of Inspired Oxygen (FIO2) 09/06/19 09/06/19 09/06/19 05:59 09:16 10:00 Breakfast 100% 100% Diet Tolerated Lunch Supper Temperature 98.1 F 100.1 F H Blood Pressure O2 Sat by Pulse Oximetry (%) Oxygen Delivery Method Fraction of Inspired Oxygen (FIO2) 09/06/19 09/06/19 09/06/19 13:37 18:00 22:00 Breakfast Diet Tolerated Lunch 75% Supper 75% Temperature 98.2 F 99.0 F 100.2 F H Blood Pressure O2 Sat by Pulse Oximetry (%) Oxygen Delivery Method Fraction of Inspired Oxygen (FIO2) 09/07/19 09/07/19 09/07/19 01:13 07:25 08:30 Breakfast Diet Tolerated Lunch Supper Temperature 99.1 F 101.7 F H Blood Pressure O2 Sat by Pulse 92 L Oximetry (%) Oxygen Delivery Nasal Cannula Method Fraction of Inspired Oxygen (FIO2) 09/07/19 09/07/19 09/07/19 08:31 08:32 08:39 Breakfast Diet Tolerated Lunch Supper Temperature 99.6 F Blood Pressure O2 Sat by Pulse 92 L Oximetry (%) Oxygen Delivery Nasal Cannula Method Fraction of Inspired Oxygen (FIO2) 09/07/19 09/07/19 09/07/19 09:00 10:00 11:36 Breakfast 100% 50% Diet Tolerated Lunch Supper Temperature 98.2 F Blood Pressure O2 Sat by Pulse 99 Oximetry (%) Oxygen Delivery Nasal Cannula Method Fraction of Inspired Oxygen (FIO2) 09/07/19 09/07/19 09/07/19 13:02 15:29 15:35 Breakfast Diet Tolerated Lunch 50% Supper Temperature 101.5 F H Blood Pressure O2 Sat by Pulse Oximetry (%) Oxygen Delivery Bi-pap Method Fraction of 40 40 Inspired Oxygen (FIO2) 09/07/19 09/07/19 09/07/19 15:40 17:10 20:00 Breakfast Diet Tolerated Lunch Supper Temperature 98.4 F 99.7 F H Blood Pressure O2 Sat by Pulse 89 L Oximetry (%) Oxygen Delivery Nasal Cannula Method Fraction of Inspired Oxygen (FIO2) 09/07/19 09/07/19 09/07/19 21:00 21:25 22:45 Breakfast Diet Tolerated Lunch Supper Temperature 103 F H 99.8 F H Blood Pressure O2 Sat by Pulse 89 L Oximetry (%) Oxygen Delivery Nasal Cannula Method Fraction of Inspired Oxygen (FIO2) 09/07/19 09/07/19 09/08/19 23:48 23:49 03:00 Breakfast Diet Tolerated Lunch Supper Temperature 99.2 F 98.7 F Blood Pressure 132/64 O2 Sat by Pulse 93 L 91 L Oximetry (%) Oxygen Delivery Nasal Cannula Nasal Cannula Method Fraction of Inspired Oxygen (FIO2) 09/08/19 09/08/19 09/08/19 06:08 06:49 08:15 Breakfast Diet Tolerated Lunch Supper Temperature 101.1 F H Blood Pressure 127/69 O2 Sat by Pulse 90 L 90 L Oximetry (%) Oxygen Delivery Nasal Cannula Method Fraction of 40 Inspired Oxygen (FIO2) 09/08/19 09/08/19 09/08/19 08:58 09:00 11:00 Breakfast 25% Diet Tolerated Fair Lunch Supper Temperature 98.6 F Blood Pressure 105/58 L O2 Sat by Pulse 89 L Oximetry (%) Oxygen Delivery Nasal Cannula Method Fraction of Inspired Oxygen (FIO2) 09/08/19 09/08/19 09/08/19 12:15 14:40 15:55 Breakfast Diet Tolerated Fair Lunch 25% Supper Temperature 100.6 F H Blood Pressure 122/97 O2 Sat by Pulse 91 L 92 L Oximetry (%) Oxygen Delivery Nasal Cannula Method Fraction of 40 40 Inspired Oxygen (FIO2) 06/09/08/19 09/08/19 17:00 19:54 21:00 Breakfast Diet Tolerated Lunch Supper Temperature 100.3 F H 98 F Blood Pressure 111/61 114/58 L O2 Sat by Pulse 90 L Oximetry (%) Oxygen Delivery Bi-pap Method Fraction of 40 Inspired Oxygen (FIO2) 09/08/19 09/09/19 09/09/19 22:00 01:00 03:40 Breakfast Diet Tolerated Fair Lunch Supper 25% Temperature 98.1 F 102.8 F H 100 F H Blood Pressure 121/65 130/71 O2 Sat by Pulse Oximetry (%) Oxygen Delivery Method Fraction of Inspired Oxygen (FIO2) 09/09/19 09/09/19 09/09/19 04:40 08:59 10:00 Breakfast 75% Diet Tolerated Lunch Supper Temperature 100.4 F H Blood Pressure 135/72 O2 Sat by Pulse 90 L 90 L Oximetry (%) Oxygen Delivery Method Fraction of 40 40 Inspired Oxygen (FIO2) 09/09/19 10:54 Breakfast Diet Tolerated Lunch Supper Temperature Blood Pressure O2 Sat by Pulse 88 L Oximetry (%) Oxygen Delivery Nasal Cannula Method Fraction of Inspired Oxygen (FIO2) Laboratory Tests 09/05/19 09/05/19 09/08/19 05:50 05:50 05:30 WBC 30.2 H* 40.8 H* COVID-19 (HEATHER) Not detected Selected Entries 09/09/19 09/09/19 09/09/19 01:00 03:40 04:40 Temperature 102.8 F H 100 F H Respiratory 20 Rate Respiratory Depth Respiratory Effort Respiratory Pattern O2 Sat by Pulse 90 L Oximetry (%) Oxygen Delivery Method 09/09/19 09/09/19 09/09/19 08:59 10:00 10:54 Temperature 100.4 F H Respiratory 20 18 Rate Respiratory Shallow Depth Respiratory Short of Breath Effort Labored Accessory Muscle Use Nasal Flaring Respiratory Tachypnea Pattern O2 Sat by Pulse 90 L 88 L Oximetry (%) Oxygen Delivery Nasal Cannula Method Awake and alert on 40% VM O2, saturation 85% CXR Bilateal infiltrates On reg diet/thin liquid May tolerate Dys ground more easily with SOB Add Ensure, magic cup, ensure pudding
--- NOTE | 2019-09-09 13:45 | PN ---
Progress Note (short form) - Note Progress Note: Awake and alert on 40% VM O2, saturation 85%. Refusing to use NIPPV support due to excessive pressure. Reports breathing feels a little better today. Intake & Output 09/06/19 09/07/19 09/08/19 09/09/19 23:59 23:59 23:59 23:59 Intake Total 920 1060 1250 560 Output Total 720 325 Balance 083 840 6699 560 Last Vital Signs Temp Pulse Resp BP Pulse Ox 100.4 F H 105 H 18 135/72 88 L 09/09/19 10:00 09/09/19 10:00 09/09/19 10:00 09/09/19 10:00 09/09/19 10:54 Active Medications Acetaminophen (Tylenol -) 650 mg PO Q6H PRN PRN Reason: FEVER Last Admin: 09/09/19 01:13 Dose: 650 mg Documented by: Albuterol Sulfate (Ventolin Hfa Inhaler -) 2 puff IH Q4H PRN PRN Reason: SHORTNESS OF BREATH Last Admin: 09/07/19 05:46 Dose: 2 puff Documented by: Albuterol/Ipratropium (Duoneb -) 1 amp NEB RQID [facility] Last Admin: 09/08/19 21:15 Dose: 1 amp Documented by: Heparin Sodium (Porcine) (Heparin -) 5,000 unit SQ BID [facility] Last Admin: 09/09/19 09:40 Dose: 5,000 unit Documented by: Meropenem 1 gm/ Dextrose 100 mls @ 200 mls/hr IVPB Q8H-IV [facility] Last Admin: 09/09/19 09:38 Dose: 200 mls/hr Documented by: Vancomycin HCl 1,250 mg/ (Dextrose) 250 mls @ 166.667 mls/hr IVPB Q24H [facility]; Protocol Last Admin: 09/09/19 09:40 Dose: 166.667 mls/hr Documented by: Methylprednisolone Sodium Succinate (Solu-Medrol -) 60 mg IVPUSH Q8H-IV [facility] Last Admin: 09/09/19 09:36 Dose: 60 mg Documented by: Tamoxifen Citrate (Tamoxifen Citrate) 20 mg PO DAILY [facility] Last Admin: 09/09/19 09:37 Dose: 20 mg Documented by: Constitutional: Yes: Awake and alert, mildly tachypneic at rest Eyes: Yes: WNL HENT: Yes: WNL Neck: Yes: WNL Cardiovascular: Yes: Regular Rate and Rhythm, S1, S2 Respiratory: Yes: Scattered Rhonchi, No Wheezes Gastrointestinal: Yes: Normal Bowel Sounds, Soft Extremities: Yes: WNL Edema: No Labs: CBC, BMP 09/08/19 05:30 Problem List - Problems (1) Breast calcification, right Code(s): R92.1 - MAMMOGRAPHIC CALCIFCN FOUND ON DIAGNOSTIC IMAGING OF BREAST (2) Breast cancer in male Code(s): C50.929 - MALIGNANT NEOPLASM OF UNSP SITE OF UNSPECIFIED MALE BREAST (3) Pneumonia Code(s): J18.9 - PNEUMONIA, UNSPECIFIED ORGANISM (4) Sepsis Code(s): A41.9 - SEPSIS, UNSPECIFIED ORGANISM (5) Acute respiratory failure Code(s): J96.00 - ACUTE RESPIRATORY FAILURE, UNSP W HYPOXIA OR HYPERCAPNIA Qualifiers: Respiratory failure complication: hypoxia Qualified Code(s): J96.01 - Acute respiratory failure with hypoxia (6) COPD exacerbation Code(s): J44.1 - CHRONIC OBSTRUCTIVE PULMONARY DISEASE W (ACUTE) EXACERBATION (7) Suspected COVID-19 virus infection Code(s): Z20.828 - CONTACT W AND EXPOSURE TO OTH VIRAL COMMUNICABLE DISEASES Assessment/Plan IMP ACUTE HYPPOXEMIC RESPIRATORY FAILURE RUL PNEUMONIA SEPSIS COPD R SIDED BREAST CA S/P MASTECTOMY ETOH TOBACCO ABUSE HYPONATREMIA PLAN SUPPLEMENTAL O2 INCREASED TO 50% VM CAN PLACE ON NRBM NIPPV DEVICE WAS ADJUSTED ABX INHALED BRONCHODILATORS COVID PCR negative STEROIDS Dr Moreira
--- NOTE | 2019-09-09 14:22 | PN.HO ---
Progress Note (short form) - Note Progress Note: KENNEDY-2, Flow Cytometry, FISH, Cytogenetics left at the floor for faxing to [employer].
--- NOTE | 2019-09-09 20:03 | PN ---
Progress Note, Physician History of Present Illness: Pt refusing to wear BIPAP - Current Medication List Current Medications: Active Medications Acetaminophen (Tylenol -) 650 mg PO Q6H PRN PRN Reason: FEVER Last Admin: 09/09/19 01:13 Dose: 650 mg Documented by: Albuterol Sulfate (Ventolin Hfa Inhaler -) 2 puff IH Q4H PRN PRN Reason: SHORTNESS OF BREATH Last Admin: 09/07/19 05:46 Dose: 2 puff Documented by: Albuterol/Ipratropium (Duoneb -) 1 amp NEB RQID [facility] Last Admin: 09/09/19 19:48 Dose: Not Given Documented by: Heparin Sodium (Porcine) (Heparin -) 5,000 unit SQ BID [facility] Last Admin: 09/09/19 09:40 Dose: 5,000 unit Documented by: Meropenem 1 gm/ Dextrose 100 mls @ 200 mls/hr IVPB Q8H-IV [facility] Last Admin: 09/09/19 18:28 Dose: 200 mls/hr Documented by: Vancomycin HCl 1,250 mg/ (Dextrose) 250 mls @ 166.667 mls/hr IVPB Q24H [facility]; Protocol Last Admin: 09/09/19 09:40 Dose: 166.667 mls/hr Documented by: Methylprednisolone Sodium Succinate (Solu-Medrol -) 60 mg IVPUSH Q8H-IV [facility] Last Admin: 09/09/19 18:29 Dose: 60 mg Documented by: Tamoxifen Citrate (Tamoxifen Citrate) 20 mg PO DAILY [facility] Last Admin: 09/09/19 09:37 Dose: 20 mg Documented by: - Objective Vital Signs: Vital Signs Temperature 99.3 F 09/09/19 15:18 Pulse Rate 102 H 09/09/19 15:18 Respiratory Rate 09/09/19 15:18 Blood Pressure 134/74 09/09/19 15:18 O2 Sat by Pulse Oximetry (%) 90 L 09/09/19 14:20 Cardiovascular: Yes: WNL, Regular Rate and Rhythm Respiratory: Yes: Rhonchi Gastrointestinal: Yes: WNL, Normal Bowel Sounds, Soft Labs: CBC, BMP 09/08/19 05:30 09/08/19 05:30 INR, PTT INR 1.23 (0.83-1.09) H 06/10/20 10:28 Problem List - Problems (1) Pneumonia Assessment/Plan: CXR showed b/l interstitial opacities COVID 19 negative Cont albuterol inhaler Cont IV meropenem/vanco ?Increasaed WBC Heme consult Code(s): J18.9 - PNEUMONIA, UNSPECIFIED ORGANISM (2) COPD (chronic obstructive pulmonary disease) Assessment/Plan: Cont inhaler Cont IV solumedrol Code(s): J44.9 - CHRONIC OBSTRUCTIVE PULMONARY DISEASE, UNSPECIFIED (3) Breast cancer in male Assessment/Plan: Cont tamoxifen Code(s): C50.929 - MALIGNANT NEOPLASM OF UNSP SITE OF UNSPECIFIED MALE BREAST
[2019-09-10] MEDS ORDERED: DEXTROSE 5%-WATER 100 ML IVPB ONE ×2 (01:38→10:28)
[2019-09-10] MEDS ORDERED: MEROPENEM 1 GM VIAL (RESTRICTED TO ID) IVPB ONE ×3 (01:38→18:31)
[2019-09-10] MEDS: MEROPENEM 1 GM in DEXTROSE 5%-WATER 100 ML IVPB SCH ×3 (01:44→18:44)
[2019-09-10] MEDS: methylPREDNISolone NA SUCC 40 MG/1 ML VIAL IVPUSH SCH ×3 (01:44→18:45)
--- NOTE | 2019-09-10 07:37 | PN ---
Progress Note, Physician History of Present Illness: pulmonary alert,less dyspneic on nasal o2 6L ,O2 sat 91% - Current Medication List Current Medications: Active Medications Acetaminophen (Tylenol -) 650 mg PO Q6H PRN PRN Reason: FEVER Last Admin: 09/09/19 01:13 Dose: 650 mg Documented by: Albuterol Sulfate (Ventolin Hfa Inhaler -) 2 puff IH Q4H PRN PRN Reason: SHORTNESS OF BREATH Last Admin: 09/07/19 05:46 Dose: 2 puff Documented by: Albuterol/Ipratropium (Duoneb -) 1 amp NEB RQID [facility] Last Admin: 09/09/19 20:45 Dose: 1 amp Documented by: Heparin Sodium (Porcine) (Heparin -) 5,000 unit SQ BID [facility] Last Admin: 09/09/19 21:32 Dose: 5,000 unit Documented by: Meropenem 1 gm/ Dextrose 100 mls @ 200 mls/hr IVPB Q8H-IV [facility] Last Admin: 09/10/19 01:44 Dose: 200 mls/hr Documented by: Vancomycin HCl 1,250 mg/ (Dextrose) 250 mls @ 166.667 mls/hr IVPB Q24H [facility]; Protocol Last Admin: 09/09/19 09:40 Dose: 166.667 mls/hr Documented by: Methylprednisolone Sodium Succinate (Solu-Medrol -) 60 mg IVPUSH Q8H-IV [facility] Last Admin: 09/10/19 01:44 Dose: 60 mg Documented by: Tamoxifen Citrate (Tamoxifen Citrate) 20 mg PO DAILY [facility] Last Admin: 09/09/19 09:37 Dose: 20 mg Documented by: - Objective Vital Signs: Vital Signs Temperature 98.7 F 09/10/19 05:59 Pulse Rate 85 09/10/19 05:59 Respiratory Rate 20 09/10/19 05:59 Blood Pressure 141/75 09/10/19 05:59 O2 Sat by Pulse Oximetry (%) 91 L 09/10/19 05:30 Constitutional: Yes: Well Nourished, Calm Eyes: Yes: WNL HENT: Yes: WNL Neck: Yes: WNL Cardiovascular: Yes: Regular Rate and Rhythm, S1, S2 Respiratory: Yes: Rhonchi, Wheezes (less rhonchi and wheezes) Gastrointestinal: Yes: Normal Bowel Sounds, Soft Extremities: Yes: WNL Edema: No Labs: INR, PTT Problem List - Problems (1) Breast calcification, right Code(s): R92.1 - MAMMOGRAPHIC CALCIFCN FOUND ON DIAGNOSTIC IMAGING OF BREAST (2) Breast cancer in male Code(s): C50.929 - MALIGNANT NEOPLASM OF UNSP SITE OF UNSPECIFIED MALE BREAST (3) Pneumonia Code(s): J18.9 - PNEUMONIA, UNSPECIFIED ORGANISM (4) Sepsis Code(s): A41.9 - SEPSIS, UNSPECIFIED ORGANISM (5) Acute respiratory failure Code(s): J96.00 - ACUTE RESPIRATORY FAILURE, UNSP W HYPOXIA OR HYPERCAPNIA Qualifiers: Respiratory failure complication: hypoxia Qualified Code(s): J96.01 - Acute respiratory failure with hypoxia (6) COPD exacerbation Code(s): J44.1 - CHRONIC OBSTRUCTIVE PULMONARY DISEASE W (ACUTE) EXACERBATION (7) Suspected COVID-19 virus infection Code(s): Z20.828 - CONTACT W AND EXPOSURE TO OTH VIRAL COMMUNICABLE DISEASES Assessment/Plan IMP ACUTE HYPPOXEMIC RESPIRATORY FAILURE RUL PNEUMONIA SEPSIS COPD R SIDED BREAST CA S/P MASTECTOMY ETOH TOBACCO ABUSE HYPONATREMIA PLAN titrate O2 ABX INHALED BRONCHODILATORS COVID PCR negative MONITOR LYTES,NA,CBC F/U CHEST X-RAYS TAPER STEROIDS DR RÍOS Problem List - Problems (1) Breast calcification, right Code(s): R92.1 - MAMMOGRAPHIC CALCIFCN FOUND ON DIAGNOSTIC IMAGING OF BREAST (2) Breast cancer in male Code(s): C50.929 - MALIGNANT NEOPLASM OF UNSP SITE OF UNSPECIFIED MALE BREAST (3) Pneumonia Code(s): J18.9 - PNEUMONIA, UNSPECIFIED ORGANISM (4) Sepsis Code(s): A41.9 - SEPSIS, UNSPECIFIED ORGANISM (5) Acute respiratory failure Code(s): J96.00 - ACUTE RESPIRATORY FAILURE, UNSP W HYPOXIA OR HYPERCAPNIA Qualifiers: Respiratory failure complication: hypoxia Qualified Code(s): J96.01 - Acute respiratory failure with hypoxia (6) COPD exacerbation Code(s): J44.1 - CHRONIC OBSTRUCTIVE PULMONARY DISEASE W (ACUTE) EXACERBATION (7) Suspected COVID-19 virus infection Code(s): Z20.828 - CONTACT W AND EXPOSURE TO OTH VIRAL COMMUNICABLE DISEASES (8) COPD with exacerbation Code(s): J44.1 - CHRONIC OBSTRUCTIVE PULMONARY DISEASE W (ACUTE) EXACERBATION
[2019-09-10 07:46] LABS: BASO % 0.1 % (0-2.0); HEMATOCRIT 40.8 % (35.4-49); HEMOGLOBIN 13.3 GM/dL (11.7-16.9); LYMPH % 55.8 % (8-40); MCH 29.5 pg (25.7-33.7); MCHC 32.6 g/dl (32.0-35.9); MEAN CELL VOLUME 90.4 fl (80-96); MEAN PLT VOLUME 10.8 fl (7.5-11.1); MONO % 0.8 % (3.8-10.2); NEUT % 43.3 % (42.8-82.8); PLATELET COUNT 104 K/MM3 (134-434); RBC 4.51 M/mm3 (4.00-5.60); RDW 16.3 % (11.9-15.9)
[2019-09-10 08:04] LABS: ALBUMIN 1.5 g/dl (3.4-5.0); BILIRUBIN,TOTAL 0.8 mg/dL (0.2-1); BLOOD UREA NITROGEN 30.5 mg/dL (7-18); CALCIUM 8.2 mg/dL (8.5-10.1); CREATININE 0.7 mg/dL (0.55-1.3); POTASSIUM 4.6 mmol/L (3.5-5.1); TOT PROT 5.1 g/dl (6.4-8.2)
[2019-09-10] MEDS: ALBUTEROL SO4 2.5/IPRATROPIUM 0.5 INH SOL 3 ML VIAL.NEB. NEB SCH ×4 (08:30→20:34)
[2019-09-10 08:37] LABS: WHITE BLOOD COUNT 38.3 K/mm3 (4.0-10.0)
[2019-09-10] MEDS ORDERED: PT OWN MED DRAWER 7, Y5N ONE (09:24)
[2019-09-10 10:33] LABS: ANISOCYTOSIS 0; MACROCYTOSIS 0; PLATELET ESTIMATE DECREASED
[2019-09-10] MEDS: HEPARIN NA (PORCINE) 5,000 UNITS/ML 1ML VIAL SQ SCH ×2 (10:38→21:31)
[2019-09-10] MEDS: TAMOXIFEN CITRATE 10 MG TABLET PO SCH (10:40)
[2019-09-10] MEDS: VANCOMYCIN HCL 1,250 MG in DEXTROSE 5%-WATER - 250 ML IVPB SCH (10:41)
--- NOTE | 2019-09-10 10:50 | PN ---
Progress Note, MANAGER SOLUTION - Note Progress Note: Selected Entries 09/09/19 09/09/19 09/09/19 01:00 03:40 08:50 Breakfast Diet Tolerated Lunch Supper Temperature 102.8 F H 100 F H Pulse Rate 90 84 Blood Pressure 130/71 O2 Sat by Pulse Oximetry (%) Oxygen Delivery Method Fraction of Inspired Oxygen (FIO2) Oxygen Flow Rate 09/09/19 09/09/19 09/09/19 08:59 10:00 11:03 Breakfast 75% 75% Diet Tolerated Fair Lunch Supper Temperature 100.4 F H Pulse Rate 105 H Blood Pressure 135/72 O2 Sat by Pulse Oximetry (%) Oxygen Delivery Method Fraction of Inspired Oxygen (FIO2) Oxygen Flow Rate 09/09/19 09/09/19 09/09/19 14:20 15:18 18:00 Breakfast Diet Tolerated Fair Lunch 25% Supper Temperature 99.3 F 99.3 F Pulse Rate 83 102 H 94 H Blood Pressure 134/74 130/73 O2 Sat by Pulse Oximetry (%) Oxygen Delivery Method Fraction of Inspired Oxygen (FIO2) Oxygen Flow Rate 09/09/19 09/09/19 09/10/19 20:06 22:00 00:00 Breakfast Diet Tolerated Refused Refused Lunch Supper 0 0 Temperature 98.7 F Pulse Rate 91 H Blood Pressure 131/72 O2 Sat by Pulse 90 L Oximetry (%) Oxygen Delivery Method Fraction of Inspired Oxygen (FIO2) Oxygen Flow 6 Rate 09/10/19 09/10/19 09/10/19 01:30 05:30 05:59 Breakfast Diet Tolerated Lunch Supper Temperature 98.7 F Pulse Rate 85 Blood Pressure 141/75 O2 Sat by Pulse 92 L 91 L Oximetry (%) Oxygen Delivery Method Fraction of 50 50 Inspired Oxygen (FIO2) Oxygen Flow Rate 09/10/19 09/10/19 08:30 08:31 Breakfast Diet Tolerated Refused Lunch Supper 0 Temperature Pulse Rate 88 Blood Pressure O2 Sat by Pulse 91 L 91 L Oximetry (%) Oxygen Delivery Nasal Cannula Method Fraction of 50 50 Inspired Oxygen (FIO2) Oxygen Flow 6 Rate Laboratory Tests 09/06/19 09/07/19 09/08/19 06:10 05:25 05:30 WBC 33.5 H* 37.0 H* 40.8 H* 09/10/19 06:55 WBC 38.3 H* Awake and alert on 40% VM O2, saturation 85% CXR Bilateal infiltrates On reg diet/thin liquid Most of food seen on tray- "I'm finished" Consider appetite stimulant? Add Ensure, magic cup, ensure pudding
--- NOTE | 2019-09-10 15:02 | PN ---
Progress Note (short form) - Note Progress Note: 73 year old gentleman, with a significant PMH of R-sided breast cancer (s/p mastectomy), COPD, leukocytosis, alcoholism, and current smoker, who presents to the ED for evaluation of fever and shortness of breath. He complains of SOB, fever (tmax 103), body aches, and generalized weakness. Patient was seen in the ED yesterday for the same complaint, but decided to leave AMA. His CXR yesterday demonstrated a right upper lobe wedge-shaped infiltrate, he was given Zosyn in the ER and discharged with Levaquin. He returned , as his symptoms have been progressively getting worse. He is being treated for extensive RUL infiltrate Last Vital Signs Temp Pulse Resp BP Pulse Ox 98.7 F 92 H 18 118/62 91 L 09/10/19 13:28 09/10/19 13:28 09/10/19 13:28 09/10/19 13:28 09/10/19 08:31 Cor: RSR, No murmurs, No gallops Lungs: decreased rt. base Abd: Soft, Normal bowel sounds, No organomegaly Ext:No significant edema Current Medications Generic Name Dose Route Start Last Admin Trade Name Freq PRN Reason Stop Dose Admin Acetaminophen 650 mg 09/05/19 11:55 09/09/19 01:13 Tylenol - PO 650 mg Q6H PRN Administration FEVER Albuterol Sulfate 2 puff 09/06/19 15:45 09/07/19 05:46 Ventolin Hfa Inhaler - IH 2 puff Q4H PRN Administration SHORTNESS OF BREATH Albuterol/Ipratropium 1 amp 09/07/19 12:00 09/10/19 15:35 Duoneb - NEB 1 amp RQID [facility] Administration Heparin Sodium (Porcine) 5,000 unit 09/04/19 22:00 09/10/19 10:38 Heparin - SQ 5,000 unit BID [facility]ER[facility] Administration Meropenem 1 gm/ Dextrose 100 mls @ 200 mls/hr 09/08/19 10:00 09/10/19 10:38 IVPB 200 mls/hr Q8H-IV [facility] Administration Vancomycin HCl 1,250 mg/ 250 mls @ 166.667 mls/hr 09/08/19 10:00 09/10/19 10:41 Dextrose IVPB 166.667 mls/hr Q24H [facility]ER[facility] Administration Protocol Methylprednisolone Sodium Succinate 60 mg 09/08/19 18:00 09/10/19 10:37 Solu-Medrol - IVPUSH 60 mg Q8H-IV [facility] Administration Tamoxifen Citrate 20 mg 09/05/19 10:00 09/10/19 10:40 Tamoxifen Citrate PO 20 mg DAILY [facility] Administration 09/10/19 06:55 09/10/19 06:00 A/P 73 y/o patient with COPD, alcohol use,leukocytosis apparently chronic, and without consistent trend, but with concerning prior and current lymphocytosis. Awaiting flow cytometry/fish/cytogenetics - to characterize population of lymphocytes. Have index of suspicion for CLL. LDH -normal h/o right breast cancer--on tamoxifen
--- NOTE | 2019-09-10 16:22 | PN ---
Progress Note, Physician History of Present Illness: Pt is alert, denying SOB. Comfortable on O2 via NC 91% O2 sat. Denies any other problems. - Current Medication List Current Medications: Active Medications Acetaminophen (Tylenol -) 650 mg PO Q6H PRN PRN Reason: FEVER Last Admin: 09/09/19 01:13 Dose: 650 mg Documented by: Albuterol Sulfate (Ventolin Hfa Inhaler -) 2 puff IH Q4H PRN PRN Reason: SHORTNESS OF BREATH Last Admin: 09/07/19 05:46 Dose: 2 puff Documented by: Albuterol/Ipratropium (Duoneb -) 1 amp NEB RQID [facility] Last Admin: 09/10/19 15:35 Dose: 1 amp Documented by: Heparin Sodium (Porcine) (Heparin -) 5,000 unit SQ BID [facility] Last Admin: 09/10/19 10:38 Dose: 5,000 unit Documented by: Meropenem 1 gm/ Dextrose 100 mls @ 200 mls/hr IVPB Q8H-IV [facility] Last Admin: 09/10/19 10:38 Dose: 200 mls/hr Documented by: Vancomycin HCl 1,250 mg/ (Dextrose) 250 mls @ 166.667 mls/hr IVPB Q24H [facility]; Protocol Last Admin: 09/10/19 10:41 Dose: 166.667 mls/hr Documented by: Methylprednisolone Sodium Succinate (Solu-Medrol -) 60 mg IVPUSH Q8H-IV [facility] Last Admin: 09/10/19 10:37 Dose: 60 mg Documented by: Tamoxifen Citrate (Tamoxifen Citrate) 20 mg PO DAILY [facility] Last Admin: 09/10/19 10:40 Dose: 20 mg Documented by: - Objective Vital Signs: Vital Signs Temperature 98.7 F 09/10/19 13:28 Pulse Rate 92 H 09/10/19 13:28 Respiratory Rate 18 09/10/19 13:28 Blood Pressure 118/62 09/10/19 13:28 O2 Sat by Pulse Oximetry (%) 91 L 09/10/19 08:31 Constitutional: Yes: No Distress, Calm HENT: Yes: Atraumatic Cardiovascular: Yes: Pulse Irregular Respiratory: Yes: Diminished (slightly b/l) Gastrointestinal: Yes: Normal Bowel Sounds, Soft Genitourinary: Yes: WNL Extremities: Yes: WNL Neurological: Yes: Alert, Oriented Labs: CBC, BMP 09/10/19 06:55 09/10/19 06:00 INR, PTT INR 1.23 (0.83-1.09) H 09/04/19 10:28 Laboratory Last Values WBC 38.3 K/mm3 (4.0-10.0) H* 09/10/19 06:55 RBC 4.51 M/mm3 (4.00-5.60) 09/10/19 06:55 Hgb 13.3 GM/dL (11.7-16.9) 09/10/19 06:55 Hct 40.8 % (35.4-49) 09/10/19 06:55 MCV 90.4 fl (80-96) 09/10/19 06:55 MCH 29.5 pg (25.7-33.7) 09/10/19 06:55 MCHC 32.6 g/dl (32.0-35.9) 09/10/19 06:55 RDW 16.3 % (11.9-15.9) H 09/10/19 06:55 Plt Count 104 K/MM3 (134-434) L D 09/10/19 06:55 MPV 10.8 fl (7.5-11.1) D 09/10/19 06:55 Absolute Neuts (auto) 16.6 K/mm3 (1.5-8.0) H 09/10/19 06:55 Total Counted Cancelled 09/08/19 05:30 Neutrophils % 43.3 % (42.8-82.8) 09/10/19 06:55 Neutrophils % (Manual) 41.2 % (42.8-82.8) L D 09/10/19 06:55 Band Neutrophils % 0.0 % 09/10/19 06:55 Lymphocytes % 55.8 % (8-40) H 09/10/19 06:55 Lymphocytes % (Manual) 57.8 % (8-40) H 09/10/19 06:55 Monocytes % 0.8 % (3.8-10.2) L 09/10/19 06:55 Monocytes % (Manual) 0 % (3.8-10.2) L D 09/10/19 06:55 Eosinophils % 0.0 % (0-4.5) 09/10/19 06:55 Eosinophils % (Manual) 0.0 % (0-4.5) 09/10/19 06:55 Basophils % 0.1 % (0-2.0) 09/10/19 06:55 Basophils % (Manual) 0.0 % (0-2.0) 09/10/19 06:55 Myelocytes % (Man) 0 % (0-2) 09/10/19 06:55 Promyelocytes % (Man) 0 % (0-2) 09/10/19 06:55 Blast Cells % (Manual) 0 % (0-0) 09/10/19 06:55 Nucleated RBC % 0 % (0-0) 09/10/19 06:55 Metamyelocytes 0 % (0-2) D 09/10/19 06:55 Differential Comment 09/10/19 06:55 Hypersegmented Neuts Cancelled 09/08/19 05:30 Plasma Cells Cancelled 09/08/19 05:30 Smudge Cells Cancelled 09/08/19 05:30 Other Cell Type Cancelled 09/08/19 05:30 Hypochromia 0 09/10/19 06:55 Toxic Granulation Cancelled 09/08/19 05:30 Dohle Bodies Cancelled 09/08/19 05:30 Mauricio Rods Cancelled 09/08/19 05:30 Platelet Estimate Decreased 09/10/19 06:55 Platelet Comment Cancelled 09/08/19 05:30 Platelet Comment Present 09/08/19 05:30 Platelet Comment Cancelled 09/08/19 05:30 Polychromasia 0 09/10/19 06:55 Poikilocytosis 0 09/10/19 06:55 Basophilic Stippling Cancelled 09/08/19 05:30 Anisocytosis 0 09/10/19 06:55 Microcytosis 0 09/10/19 06:55 Macrocytosis 0 09/10/19 06:55 Spherocytes 1+ 09/08/19 05:30 Spherocytes Cancelled 09/08/19 05:30 Siderocytes Cancelled 09/08/19 05:30 Sickle Cells Cancelled 09/08/19 05:30 Target Cells Cancelled 09/08/19 05:30 Tear Drop Cells 1+ 09/08/19 05:30 Tear Drop Cells Cancelled 09/08/19 05:30 Ovalocytes 1+ 09/08/19 05:30 Ovalocytes Cancelled 09/08/19 05:30 Stomatocytes Cancelled 09/08/19 05:30 Helmet Cells Cancelled 09/08/19 05:30 [place] Bodies Cancelled 09/08/19 05:30 [place] Rings Cancelled 09/08/19 05:30 [place] Cells Cancelled 09/08/19 05:30 Acanthocytes (Spur) Cancelled 09/08/19 05:30 Rouleaux Cancelled 09/08/19 05:30 Fragmented RBCs Cancelled 09/08/19 05:30 Schistocytes Cancelled 09/08/19 05:30 PT with INR 14.50 SEC (9.7-13.0) H 09/04/19 10:28 INR 1.23 (0.83-1.09) H 09/04/19 10:28 PTT (Actin FS) 29.8 SECONDS (25.2-36.5) 09/04/19 10:28 VBG pH 7.40 (7.31-7.41) 09/04/19 10:28 POC VBG pCO2 35.9 mmHg (38-52) L 09/04/19 10:28 POC VBG pO2 < 49 mmHg (28-48) H 09/04/19 10:28 VBG HCO3 21.7 mmol/L (23-29) L 09/04/19 10:28 VBG O2 Sat (Rachelle) 76.8 % (70-80) 09/04/19 10:28 VBG Base Excess -2.4 mmol/L (-2-2) L 09/04/19 10:28 Sodium 134 mmol/L (136-145) L 09/10/19 06:00 Potassium 4.6 mmol/L (3.5-5.1) 09/10/19 06:00 Chloride 98 mmol/L (98-107) 09/10/19 06:00 Carbon Dioxide 28 mmol/L (21-32) 09/10/19 06:00 Anion Gap 8 MMOL/L (8-16) 09/10/19 06:00 BUN 30.5 mg/dL (7-18) H 09/10/19 06:00 Creatinine 0.7 mg/dL (0.55-1.3) 09/10/19 06:00 Est GFR (CKD-EPI)AfAm 110.04 09/10/19 06:00 Est GFR (CKD-EPI)NonAf 94.95 09/10/19 06:00 Random Glucose 128 mg/dL (74-106) H 09/10/19 06:00 Lactic Acid 1.4 mmol/L (0.4-2.0) 09/04/19 10:28 Calcium 8.2 mg/dL (8.5-10.1) L 09/10/19 06:00 Total Bilirubin 0.8 mg/dL (0.2-1) 09/10/19 06:00 AST 99 U/L (15-37) H 09/10/19 06:00 ALT 78 U/L (13-61) H 09/10/19 06:00 Alkaline Phosphatase 90 U/L (45-117) 09/10/19 06:00 Troponin I < 0.02 ng/ml (0.00-0.05) 09/04/19 10:28 Total Protein 5.1 g/dl (6.4-8.2) L 09/10/19 06:00 Albumin 1.5 g/dl (3.4-5.0) L 09/10/19 06:00 Urine Color Yellow 09/04/19 14:00 Urine Appearance Clear 09/04/19 14:00 Urine pH 5.5 (5.0-8.0) 09/04/19 14:00 Ur Specific [place] 1.019 (1.010-1.035) 09/04/19 14:00 Urine Protein 2+ (NEGATIVE) H 09/04/19 14:00 Urine Glucose (UA) Negative (NEGATIVE) 09/04/19 14:00 Urine Ketones 1+ (NEGATIVE) H 09/04/19 14:00 Urine Blood 1+ (NEGATIVE) H 09/04/19 14:00 Urine Nitrite Negative (NEGATIVE) 09/04/19 14:00 Urine Bilirubin Negative (NEGATIVE) 09/04/19 14:00 Urine Urobilinogen 1.0 mg/dL (0.2-1.0) 09/04/19 14:00 Ur Leukocyte Esterase Negative (NEGATIVE) 09/04/19 14:00 Urine WBC (Auto) 11 /uL (0-25.8) 09/04/19 14:00 Urine RBC (Auto) 11 /uL (0-23.9) 09/04/19 14:00 Urine Casts (Auto) 1 /uL (0-3.1) 09/04/19 14:00 U Epithel Cells (Auto) 11 /uL (0-25.1) 09/04/19 14:00 Urine Bacteria (Auto) 33 /uL (0-1359) 09/04/19 14:00 Urine Yeast (Auto) Negative (NEGATIVE) 09/04/19 14:00 COVID-19 (HEATHER) Not detected (Not Detected) 09/05/19 05:50 Microbiology 09/04/19 10:28 Blood - Peripheral Venous Blood Culture - Final NO GROWTH AFTER 5 DAYS INCUBATION 09/04/19 10:28 Blood - Peripheral Venous Blood Culture - Final NO GROWTH AFTER 5 DAYS INCUBATION 09/04/19 14:00 Urine - Urine Clean Catch Urine Culture - Final NO GROWTH OBTAINED - ....Imaging Chest X-ray: Report Reviewed Problem List - Problems (1) Breast cancer in male Code(s): C50.929 - MALIGNANT NEOPLASM OF UNSP SITE OF UNSPECIFIED MALE BREAST (2) Pneumonia Code(s): J18.9 - PNEUMONIA, UNSPECIFIED ORGANISM (3) Acute respiratory failure Code(s): J96.00 - ACUTE RESPIRATORY FAILURE, UNSP W HYPOXIA OR HYPERCAPNIA Qualifiers: Respiratory failure complication: hypoxia Qualified Code(s): J96.01 - Acute respiratory failure with hypoxia (4) COPD (chronic obstructive pulmonary disease) Code(s): J44.9 - CHRONIC OBSTRUCTIVE PULMONARY DISEASE, UNSPECIFIED (5) Leukocytosis Code(s): D72.829 - ELEVATED WHITE BLOOD CELL COUNT, UNSPECIFIED (6) COPD with exacerbation Code(s): J44.1 - CHRONIC OBSTRUCTIVE PULMONARY DISEASE W (ACUTE) EXACERBATION Assessment/Plan Fever RUL PNA COPD Chronic leukocytosis Hx of Breast CA s/p mastectomy --pt afebrile in past 24 hrs -- continue antibiotics -- wbc elevated at similar levels in 2018, Heme/Onc evaluating -- continue monitor -- check Vanco trough level, monitor renal function
--- NOTE | 2019-09-10 22:23 | PN ---
Progress Note, Physician History of Present Illness: Pt is confused at times - Current Medication List Current Medications: Active Medications Acetaminophen (Tylenol -) 650 mg PO Q6H PRN PRN Reason: FEVER Last Admin: 09/09/19 01:13 Dose: 650 mg Documented by: Albuterol Sulfate (Ventolin Hfa Inhaler -) 2 puff IH Q4H PRN PRN Reason: SHORTNESS OF BREATH Last Admin: 09/07/19 05:46 Dose: 2 puff Documented by: Albuterol/Ipratropium (Duoneb -) 1 amp NEB RQID [facility] Last Admin: 09/10/19 20:34 Dose: 1 amp Documented by: Heparin Sodium (Porcine) (Heparin -) 5,000 unit SQ BID [facility] Last Admin: 09/10/19 21:31 Dose: 5,000 unit Documented by: Meropenem 1 gm/ Dextrose 100 mls @ 200 mls/hr IVPB Q8H-IV [facility] Last Admin: 09/10/19 18:44 Dose: 200 mls/hr Documented by: Vancomycin HCl 1,250 mg/ (Dextrose) 250 mls @ 166.667 mls/hr IVPB Q24H [facility]; Protocol Last Admin: 09/10/19 10:41 Dose: 166.667 mls/hr Documented by: Methylprednisolone Sodium Succinate (Solu-Medrol -) 60 mg IVPUSH Q8H-IV [facility] Last Admin: 09/10/19 18:45 Dose: 60 mg Documented by: Tamoxifen Citrate (Tamoxifen Citrate) 20 mg PO DAILY [facility] Last Admin: 09/10/19 10:40 Dose: 20 mg Documented by: - Objective Vital Signs: Vital Signs Temperature 98.1 F 09/10/19 21:31 Pulse Rate 89 09/10/19 21:31 Respiratory Rate 20 09/10/19 21:31 Blood Pressure 126/66 09/10/19 21:31 O2 Sat by Pulse Oximetry (%) 91 L 09/10/19 08:31 Neck: Yes: WNL, Supple Cardiovascular: Yes: WNL, Regular Rate and Rhythm Respiratory: Yes: Diminished Gastrointestinal: Yes: WNL, Normal Bowel Sounds, Soft Labs: CBC, BMP 09/10/19 06:55 09/10/19 06:00 INR, PTT INR 1.23 (0.83-1.09) H 09/04/19 10:28 Problem List - Problems (1) Pneumonia Assessment/Plan: CXR showed b/l interstitial opacities COVID 19 negative Cont albuterol inhaler Cont IV meropenem/vanco ?Increasaed WBC Code(s): J18.9 - PNEUMONIA, UNSPECIFIED ORGANISM (2) COPD (chronic obstructive pulmonary disease) Assessment/Plan: Cont inhaler Cont IV solumedrol Code(s): J44.9 - CHRONIC OBSTRUCTIVE PULMONARY DISEASE, UNSPECIFIED (3) Leukocytosis Assessment/Plan: Probable CLL Flow cytometry pending As per heme Code(s): D72.829 - ELEVATED WHITE BLOOD CELL COUNT, UNSPECIFIED (4) Breast cancer in male Assessment/Plan: Cont tamoxifen Code(s): C50.929 - MALIGNANT NEOPLASM OF UNSP SITE OF UNSPECIFIED MALE BREAST
[2019-09-11] MEDS ORDERED: DEXTROSE 5%-WATER 100 ML IVPB ONE ×3 (02:26→16:19)
[2019-09-11] MEDS ORDERED: MEROPENEM 1 GM VIAL (RESTRICTED TO ID) IVPB ONE ×3 (02:26→16:18)
[2019-09-11] MEDS: MEROPENEM 1 GM in DEXTROSE 5%-WATER 100 ML IVPB SCH ×3 (02:29→17:02)
[2019-09-11] MEDS: methylPREDNISolone NA SUCC 40 MG/1 ML VIAL IVPUSH SCH ×3 (02:30→17:03)
[2019-09-11 07:37] LABS: ALBUMIN 1.4 g/dl (3.4-5.0); BILIRUBIN,TOTAL 0.8 mg/dL (0.2-1); BLOOD UREA NITROGEN 29.8 mg/dL (7-18); CALCIUM 8.2 mg/dL (8.5-10.1); CREATININE 0.7 mg/dL (0.55-1.3); POTASSIUM 4.6 mmol/L (3.5-5.1)
--- NOTE | 2019-09-11 07:41 | PN ---
Progress Note, Physician History of Present Illness: PULMONARY AWAKE,LESS DYSPNEIC,HYPOXIC ON NASAL O2 6L,SAT 87% - Current Medication List Current Medications: Active Medications Acetaminophen (Tylenol -) 650 mg PO Q6H PRN PRN Reason: FEVER Last Admin: 09/09/19 01:13 Dose: 650 mg Documented by: Albuterol Sulfate (Ventolin Hfa Inhaler -) 2 puff IH Q4H PRN PRN Reason: SHORTNESS OF BREATH Last Admin: 09/07/19 05:46 Dose: 2 puff Documented by: Albuterol/Ipratropium (Duoneb -) 1 amp NEB RQID [facility] Last Admin: 09/10/19 20:34 Dose: 1 amp Documented by: Heparin Sodium (Porcine) (Heparin -) 5,000 unit SQ BID [facility] Last Admin: 09/10/19 21:31 Dose: 5,000 unit Documented by: Meropenem 1 gm/ Dextrose 100 mls @ 200 mls/hr IVPB Q8H-IV [facility] Last Admin: 09/11/19 02:29 Dose: 200 mls/hr Documented by: Vancomycin HCl 1,250 mg/ (Dextrose) 250 mls @ 166.667 mls/hr IVPB Q24H [facility]; Protocol Last Admin: 09/10/19 10:41 Dose: 166.667 mls/hr Documented by: Methylprednisolone Sodium Succinate (Solu-Medrol -) 60 mg IVPUSH Q8H-IV [facility] Last Admin: 09/11/19 02:30 Dose: 60 mg Documented by: Tamoxifen Citrate (Tamoxifen Citrate) 20 mg PO DAILY [facility] Last Admin: 09/10/19 10:40 Dose: 20 mg Documented by: - Objective Vital Signs: Vital Signs Temperature 97.8 F 09/11/19 00:58 Pulse Rate 79 09/11/19 00:58 Respiratory Rate 22 H 09/11/19 00:58 Blood Pressure 119/60 09/11/19 00:58 O2 Sat by Pulse Oximetry (%) 91 L 09/11/19 05:34 Constitutional: Yes: Well Nourished, Calm Eyes: Yes: WNL HENT: Yes: WNL Neck: Yes: WNL Cardiovascular: Yes: Regular Rate and Rhythm, S1, S2 Respiratory: Yes: Rhonchi (SCATTERED YOCASTA WHEEZES AND RHONCHI), Wheezes Gastrointestinal: Yes: Normal Bowel Sounds, Soft Extremities: Yes: WNL Edema: No Labs: CBC, BMP 09/11/19 06:15 INR, PTT INR 1.23 (0.83-1.09) H 09/04/19 10:28 Problem List - Problems (1) Breast calcification, right Code(s): R92.1 - MAMMOGRAPHIC CALCIFCN FOUND ON DIAGNOSTIC IMAGING OF BREAST (2) Breast cancer in male Code(s): C50.929 - MALIGNANT NEOPLASM OF UNSP SITE OF UNSPECIFIED MALE BREAST (3) Pneumonia Code(s): J18.9 - PNEUMONIA, UNSPECIFIED ORGANISM (4) Sepsis Code(s): A41.9 - SEPSIS, UNSPECIFIED ORGANISM (5) Acute respiratory failure Code(s): J96.00 - ACUTE RESPIRATORY FAILURE, UNSP W HYPOXIA OR HYPERCAPNIA Qualifiers: Respiratory failure complication: hypoxia Qualified Code(s): J96.01 - Acute respiratory failure with hypoxia (6) COPD exacerbation Code(s): J44.1 - CHRONIC OBSTRUCTIVE PULMONARY DISEASE W (ACUTE) EXACERBATION (7) Suspected COVID-19 virus infection Code(s): Z20.828 - CONTACT W AND EXPOSURE TO OTH VIRAL COMMUNICABLE DISEASES Assessment/Plan IMP ACUTE HYPPOXEMIC RESPIRATORY FAILURE RUL PNEUMONIA SEPSIS COPD R SIDED BREAST CA S/P MASTECTOMY ETOH TOBACCO ABUSE HYPONATREMIA PLAN titrate O2 ABX INHALED BRONCHODILATORS COVID PCR negative MONITOR LYTES,NA,CBC F/U CHEST X-RAYS TAPER STEROIDS DR RÍOS Problem List - Problems (1) Breast calcification, right Code(s): R92.1 - MAMMOGRAPHIC CALCIFCN FOUND ON DIAGNOSTIC IMAGING OF BREAST (2) Breast cancer in male Code(s): C50.929 - MALIGNANT NEOPLASM OF UNSP SITE OF UNSPECIFIED MALE BREAST (3) Pneumonia Code(s): J18.9 - PNEUMONIA, UNSPECIFIED ORGANISM (4) Sepsis Code(s): A41.9 - SEPSIS, UNSPECIFIED ORGANISM (5) Acute respiratory failure Code(s): J96.00 - ACUTE RESPIRATORY FAILURE, UNSP W HYPOXIA OR HYPERCAPNIA Qualifiers: Respiratory failure complication: hypoxia Qualified Code(s): J96.01 - Acute respiratory failure with hypoxia (6) COPD exacerbation Code(s): J44.1 - CHRONIC OBSTRUCTIVE PULMONARY DISEASE W (ACUTE) EXACERBATION (7) Suspected COVID-19 virus infection Code(s): Z20.828 - CONTACT W AND EXPOSURE TO OTH VIRAL COMMUNICABLE DISEASES (8) COPD with exacerbation Code(s): J44.1 - CHRONIC OBSTRUCTIVE PULMONARY DISEASE W (ACUTE) EXACERBATION
[2019-09-11] MEDS: ALBUTEROL SO4 2.5/IPRATROPIUM 0.5 INH SOL 3 ML VIAL.NEB. NEB SCH ×4 (08:00→20:41)
[2019-09-11 09:05] LABS: BASO % 0.2 % (0-2.0); HEMATOCRIT 40.3 % (35.4-49); HEMOGLOBIN 13.2 GM/dL (11.7-16.9); LYMPH % 53.9 % (8-40); MCH 29.7 pg (25.7-33.7); MCHC 32.7 g/dl (32.0-35.9); MEAN CELL VOLUME 90.9 fl (80-96); MEAN PLT VOLUME 12.3 fl (7.5-11.1); MONO % 1.8 % (3.8-10.2); NEUT % 44.1 % (42.8-82.8); PLATELET COUNT 118 K/MM3 (134-434); RBC 4.43 M/mm3 (4.00-5.60)
[2019-09-11 09:21] LABS: WHITE BLOOD COUNT 38.9 K/mm3 (4.0-10.0)
[2019-09-11] MEDS ORDERED: PT OWN MED DRAWER 7, Y5N ONE ×2 (09:44→10:06)
[2019-09-11] MEDS: TAMOXIFEN CITRATE 10 MG TABLET PO SCH (09:51)
[2019-09-11] MEDS: HEPARIN NA (PORCINE) 5,000 UNITS/ML 1ML VIAL SQ SCH (09:51)
--- NOTE | 2019-09-11 10:55 | PN ---
Progress Note, SOCIAL WORK JOB TITLES - Note Progress Note: Selected Entries 09/09/19 09/09/19 09/09/19 01:00 03:40 08:50 Breakfast Diet Tolerated Lunch Supper Temperature 102.8 F H 100 F H Pulse Rate 90 84 Blood Pressure 130/71 O2 Sat by Pulse Oximetry (%) Oxygen Delivery Method Fraction of Inspired Oxygen (FIO2) Oxygen Flow Rate 09/09/19 09/09/19 09/09/19 08:59 10:00 11:03 Breakfast 75% 75% Diet Tolerated Fair Lunch Supper Temperature 100.4 F H Pulse Rate 105 H Blood Pressure 135/72 O2 Sat by Pulse Oximetry (%) Oxygen Delivery Method Fraction of Inspired Oxygen (FIO2) Oxygen Flow Rate 09/09/19 09/09/19 09/09/19 14:20 15:18 18:00 Breakfast Diet Tolerated Fair Lunch 25% Supper Temperature 99.3 F 99.3 F Pulse Rate 83 102 H 94 H Blood Pressure 134/74 130/73 O2 Sat by Pulse Oximetry (%) Oxygen Delivery Method Fraction of Inspired Oxygen (FIO2) Oxygen Flow Rate 09/09/19 09/09/19 09/10/19 20:06 22:00 00:00 Breakfast Diet Tolerated Refused Refused Lunch Supper 0 0 Temperature 98.7 F Pulse Rate 91 H Blood Pressure 131/72 O2 Sat by Pulse 90 L Oximetry (%) Oxygen Delivery Method Fraction of Inspired Oxygen (FIO2) Oxygen Flow 6 Rate 09/10/19 09/10/19 09/10/19 01:30 05:30 05:59 Breakfast Diet Tolerated Lunch Supper Temperature 98.7 F Pulse Rate 85 Blood Pressure 141/75 O2 Sat by Pulse 92 L 91 L Oximetry (%) Oxygen Delivery Method Fraction of 50 50 Inspired Oxygen (FIO2) Oxygen Flow Rate 09/10/19 09/10/19 08:30 08:31 Breakfast Diet Tolerated Refused Lunch Supper 0 Temperature Pulse Rate 88 Blood Pressure O2 Sat by Pulse 91 L 91 L Oximetry (%) Oxygen Delivery Nasal Cannula Method Fraction of 50 50 Inspired Oxygen (FIO2) Oxygen Flow 6 Rate Laboratory Tests 09/06/19 09/07/19 09/08/19 06:10 05:25 05:30 WBC 33.5 H* 37.0 H* 40.8 H* 09/10/19 06:55 WBC 38.3 H* On chopped reg diet/thin liquid Seemed to like chopped meat more today, with some acceptance Poor dentition Ensure ordered RD f/u Consider appetite stimulant? Add magic cup, ensure pudding
[2019-09-11 11:17] LABS: ANISOCYTOSIS 1+; PLATELET ESTIMATE DECREASED
[2019-09-11] MEDS: VANCOMYCIN HCL 1,250 MG in DEXTROSE 5%-WATER - 250 ML IVPB SCH (11:56)
--- NOTE | 2019-09-11 11:58 | PN ---
Progress Note, Physician History of Present Illness: stable afebrile - Current Medication List Current Medications: Active Medications Acetaminophen (Tylenol -) 650 mg PO Q6H PRN PRN Reason: FEVER Last Admin: 09/09/19 01:13 Dose: 650 mg Documented by: Albuterol Sulfate (Ventolin Hfa Inhaler -) 2 puff IH Q4H PRN PRN Reason: SHORTNESS OF BREATH Last Admin: 09/07/19 05:46 Dose: 2 puff Documented by: Albuterol/Ipratropium (Duoneb -) 1 amp NEB RQID [facility] Last Admin: 09/10/19 20:34 Dose: 1 amp Documented by: Heparin Sodium (Porcine) (Heparin -) 5,000 unit SQ BID [facility] Last Admin: 09/11/19 09:51 Dose: 5,000 unit Documented by: Meropenem 1 gm/ Dextrose 100 mls @ 200 mls/hr IVPB Q8H-IV [facility] Last Admin: 09/11/19 09:51 Dose: 200 mls/hr Documented by: Vancomycin HCl 1,250 mg/ (Dextrose) 250 mls @ 166.667 mls/hr IVPB Q24H [facility]; Protocol Last Admin: 09/10/19 10:41 Dose: 166.667 mls/hr Documented by: Methylprednisolone Sodium Succinate (Solu-Medrol -) 60 mg IVPUSH Q8H-IV [facility] Last Admin: 09/11/19 09:50 Dose: 60 mg Documented by: Tamoxifen Citrate (Tamoxifen Citrate) 20 mg PO DAILY [facility] Last Admin: 09/11/19 09:51 Dose: 20 mg Documented by: - Objective Vital Signs: Vital Signs Temperature 98.5 F 09/11/19 10:00 Pulse Rate 87 09/11/19 10:00 Respiratory Rate 22 H 09/11/19 10:00 Blood Pressure 124/68 09/11/19 10:00 O2 Sat by Pulse Oximetry (%) 87 L 09/11/19 09:00 Constitutional: Yes: No Distress, Calm Cardiovascular: Yes: S1, S2 Gastrointestinal: Yes: Normal Bowel Sounds, Soft Musculoskeletal: Yes: WNL Extremities: Yes: Other Neurological: Yes: Alert, Oriented Psychiatric: Yes: Alert, Oriented Labs: CBC, BMP 09/11/19 06:15 09/11/19 06:15 INR, PTT INR 1.23 (0.83-1.09) H 09/04/19 10:28 Assessment/Plan Problem List - Problems (1) Breast calcification, right Code(s): R92.1 - MAMMOGRAPHIC CALCIFCN FOUND ON DIAGNOSTIC IMAGING OF BREAST (2) Breast cancer in male Code(s): C50.929 - MALIGNANT NEOPLASM OF UNSP SITE OF UNSPECIFIED MALE BREAST (3) Pneumonia Code(s): J18.9 - PNEUMONIA, UNSPECIFIED ORGANISM (4) Sepsis Code(s): A41.9 - SEPSIS, UNSPECIFIED ORGANISM (5) Acute respiratory failure Code(s): J96.00 - ACUTE RESPIRATORY FAILURE, UNSP W HYPOXIA OR HYPERCAPNIA Qualifiers: Respiratory failure complication: hypoxia Qualified Code(s): J96.01 - Acute respiratory failure with hypoxia (6) COPD exacerbation Code(s): J44.1 - CHRONIC OBSTRUCTIVE PULMONARY DISEASE W (ACUTE) EXACERBATION (7) Suspected COVID-19 virus infection Code(s): Z20.828 - CONTACT W AND EXPOSURE TO OTH VIRAL COMMUNICABLE DISEASES (8) COPD with exacerbation Code(s): J44.1 - CHRONIC OBSTRUCTIVE PULMONARY DISEASE W (ACUTE) EXACERBATION plan continue abx monitor fevers await for cbc rest as per the team will check vanco level tomorrow
[2019-09-11] MEDS ORDERED: LORazepam 2 MG/ML SDV VIAL IVPUSH ONE (12:15)
[2019-09-11 14:57] VITALS: BMI 26.1
--- NOTE | 2019-09-11 16:17 | PATH ---
Surgical Pathology Report Patient Name: PRUDENCIO MARQUEZ [facility]. Rec. #: [id number] /Age/Gender: 1945 (Age: 73) / M Account: [id number] Location: [facility]URG Taken: 09/09/2019 Received: 09/09/2019 Reported: 09/11/2019 Physicians: Shari Cardozo M.D. Specimen(s) Received PERIPHERAL BLOOD Clinical History Leukocytosis Final Diagnosis COM[facility] [place] ([id number]) shows the following: INTERPRETATION: The antigenic profile is consistent with Chronic Lymphocytic Leukemia (CLL). COMMENT: Correlation with clinical data including CBC and FISH, cytogenetic studies is suggested. Lack of CD38 expression in B cell chronic lymphocytic leukemia (CLL) is associated with a more favorable clinical outcome. References: Giacomo DSOUZA, et al. Blood 1999; 94(6):1840-7. Jolly, S et al. Blood 2001;98(1):181-186 PHENOTYPE: A monoclonal B-cell population lambda light-chain restricted is detected comprising 93% of the lymphocytes and 41% of the analyzed WBCs. They are CD20+(dim), CD19+, CD23+, co-express CD5 and lack CD10. They are negative for CD38. T-cells show no loss or aberrant expression of a vaughn-T cell antigen. 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 No evidence of trisomy 12. No evidence of deletion of IAN (11q22) is present. No evidence of a deletion of the p53 (17p13) locus. No CCND1/IGH t(11;14) translocation is detected. COMMENTS: The frequency of abnormalities of chromosome 13 in CLL detected by conventional cytogenetics is 10% to 15%. The presence of del(13q) as the sole abnormality in CLL is associated with a favorable prognosis. Del(13q) has also been reported in other malignancies. Correlation with pending cytogenetics is recommended. Case discussed with Dr. Cardozo, 09/11/19. See [facility] reports for additional details. Electronically Signed Diane Mckeon M.D. Addendum Reported: 09/17/2019 Addendum Diagnosis CYTOGENETIC KARYOTYPE ANALYSIS performed and interpreted at [facility], [place], [place] ([id number]) TEST RESULTS: Tissue Culture Failure. DIAGNOSTIC INTERPRETATION: This unstimulated peripheral blood specimen did not produce any analyzable metaphase cells and, therefore, chromosome analysis is not possible. A bone marrow aspirate, when clinically appropriate, is recommended. See [facility] report for additional details. Diane Mckeon M.D. Addendum Reported: 09/24/2019 Addendum Diagnosis CYTOGENETIC KARYOTYPE ANALYSIS performed and interpreted at [facility], [facility] ([id number]) shows the following: RESULTS: Tissue Culture Failure INTERPRETATION: This unstimulated peripheral blood specimen did not produce any analyzable metaphase cells and, therefore, chromosome analysis is not possible. A bone marrow aspirate, when clinically appropriate, is recommended. See [facility] report for additional details. Nav Abbott M.D. Gross Description Received are 2 green top tubes and 2 purple top tubes of peripheral blood which are sent to [facility]. /09/09/2019 [facility]09/09/2019
--- NOTE | 2019-09-11 20:51 | PN ---
Progress Note, Physician History of Present Illness: No new complaints - Current Medication List Current Medications: Active Medications Acetaminophen (Tylenol -) 650 mg PO Q6H PRN PRN Reason: FEVER Last Admin: 09/09/19 01:13 Dose: 650 mg Documented by: Albuterol Sulfate (Ventolin Hfa Inhaler -) 2 puff IH Q4H PRN PRN Reason: SHORTNESS OF BREATH Last Admin: 09/07/19 05:46 Dose: 2 puff Documented by: Albuterol/Ipratropium (Duoneb -) 1 amp NEB RQID PIERCE Last Admin: 09/11/19 20:41 Dose: 1 amp Documented by: Heparin Sodium (Porcine) (Heparin -) 5,000 unit SQ BID PIERCE Last Admin: 09/11/19 09:51 Dose: 5,000 unit Documented by: Meropenem 1 gm/ Dextrose 100 mls @ 200 mls/hr IVPB Q8H-IV PIERCE Last Admin: 09/11/19 17:02 Dose: 200 mls/hr Documented by: Vancomycin HCl 1,250 mg/ (Dextrose) 250 mls @ 166.667 mls/hr IVPB Q24H PIERCE; Protocol Last Admin: 09/11/19 11:56 Dose: 166.667 mls/hr Documented by: Methylprednisolone Sodium Succinate (Solu-Medrol -) 60 mg IVPUSH Q8H-IV PIERCE Last Admin: 09/11/19 17:03 Dose: 60 mg Documented by: Tamoxifen Citrate (Tamoxifen Citrate) 20 mg PO DAILY [facility] Last Admin: 09/11/19 09:51 Dose: 20 mg Documented by: - Objective Vital Signs: Vital Signs Temperature 97.9 F 09/11/19 18:00 Pulse Rate 87 09/11/19 18:00 Respiratory Rate 20 09/11/19 18:00 Blood Pressure 124/62 09/11/19 18:00 O2 Sat by Pulse Oximetry (%) 87 L 09/11/19 09:00 Neck: Yes: WNL, Supple Cardiovascular: Yes: WNL, Regular Rate and Rhythm Respiratory: Yes: Other (Coarse BS B/L) Gastrointestinal: Yes: WNL, Normal Bowel Sounds, Soft Labs: CBC, BMP 09/11/19 06:15 09/11/19 06:15 INR, PTT INR 1.23 (0.83-1.09) H 09/04/19 10:28 Problem List - Problems (1) Pneumonia Assessment/Plan: CXR showed b/l interstitial opacities COVID 19 negative Cont albuterol inhaler Cont IV meropenem/vanco ?Increasaed WBC Code(s): J18.9 - PNEUMONIA, UNSPECIFIED ORGANISM (2) COPD (chronic obstructive pulmonary disease) Assessment/Plan: Cont inhaler Cont IV solumedrol Code(s): J44.9 - CHRONIC OBSTRUCTIVE PULMONARY DISEASE, UNSPECIFIED (3) Leukocytosis Assessment/Plan: Probable CLL Flow cytometry pending As per heme Code(s): D72.829 - ELEVATED WHITE BLOOD CELL COUNT, UNSPECIFIED (4) Breast cancer in male Assessment/Plan: Cont tamoxifen Code(s): C50.929 - MALIGNANT NEOPLASM OF UNSP SITE OF UNSPECIFIED MALE BREAST
[2019-09-12] MEDS ORDERED: MEROPENEM 1 GM VIAL (RESTRICTED TO ID) IVPB ONE ×3 (00:32→16:42)
[2019-09-12] MEDS ORDERED: DEXTROSE 5%-WATER 100 ML IVPB ONE ×3 (00:33→16:42)
[2019-09-12] MEDS: MEROPENEM 1 GM in DEXTROSE 5%-WATER 100 ML IVPB SCH ×3 (01:00→17:12)
[2019-09-12] MEDS: methylPREDNISolone NA SUCC 40 MG/1 ML VIAL IVPUSH SCH ×3 (01:00→17:13)
[2019-09-12] MEDS: ALBUTEROL SO4 2.5/IPRATROPIUM 0.5 INH SOL 3 ML VIAL.NEB. NEB SCH (07:49)
--- NOTE | 2019-09-12 07:54 | PN ---
Progress Note, Physician History of Present Illness: pulmonary alert,feeling better,sob improving,less congestion,o2 sat 87% ra - Current Medication List Current Medications: Active Medications Acetaminophen (Tylenol -) 650 mg PO Q6H PRN PRN Reason: FEVER Last Admin: 09/09/19 01:13 Dose: 650 mg Documented by: Albuterol Sulfate (Ventolin Hfa Inhaler -) 2 puff IH Q4H PRN PRN Reason: SHORTNESS OF BREATH Last Admin: 09/07/19 05:46 Dose: 2 puff Documented by: Albuterol/Ipratropium (Duoneb -) 1 amp NEB RQID PIERCE Last Admin: 09/12/19 07:49 Dose: 1 amp Documented by: Meropenem 1 gm/ Dextrose 100 mls @ 200 mls/hr IVPB Q8H-IV PIERCE Last Admin: 09/12/19 01:00 Dose: 200 mls/hr Documented by: Vancomycin HCl 1,250 mg/ (Dextrose) 250 mls @ 166.667 mls/hr IVPB Q24H [facility]; Protocol Last Admin: 09/11/19 11:56 Dose: 166.667 mls/hr Documented by: Methylprednisolone Sodium Succinate (Solu-Medrol -) 60 mg IVPUSH Q8H-IV PIERCE Last Admin: 09/12/19 01:00 Dose: 60 mg Documented by: Tamoxifen Citrate (Tamoxifen Citrate) 20 mg PO DAILY [facility] Last Admin: 09/11/19 09:51 Dose: 20 mg Documented by: - Objective Vital Signs: Vital Signs Temperature 97.4 F L 09/12/19 05:19 Pulse Rate 71 09/12/19 05:19 Respiratory Rate 20 09/12/19 05:19 Blood Pressure 123/64 09/12/19 05:19 O2 Sat by Pulse Oximetry (%) 93 L 09/11/19 21:00 Constitutional: Yes: Well Nourished, Calm Eyes: Yes: WNL HENT: Yes: WNL Neck: Yes: WNL Cardiovascular: Yes: Regular Rate and Rhythm, S1, S2 Respiratory: Yes: Rhonchi, Wheezes (less rhonchi and wheezes bilaterally) Gastrointestinal: Yes: Normal Bowel Sounds, Soft Extremities: Yes: WNL Edema: No Labs: CBC, BMP 09/11/19 06:15 Problem List - Problems (1) Breast calcification, right Code(s): R92.1 - MAMMOGRAPHIC CALCIFCN FOUND ON DIAGNOSTIC IMAGING OF BREAST (2) Breast cancer in male Code(s): C50.929 - MALIGNANT NEOPLASM OF UNSP SITE OF UNSPECIFIED MALE BREAST (3) Pneumonia Code(s): J18.9 - PNEUMONIA, UNSPECIFIED ORGANISM (4) Sepsis Code(s): A41.9 - SEPSIS, UNSPECIFIED ORGANISM (5) Acute respiratory failure Code(s): J96.00 - ACUTE RESPIRATORY FAILURE, UNSP W HYPOXIA OR HYPERCAPNIA Qualifiers: Respiratory failure complication: hypoxia Qualified Code(s): J96.01 - Acute respiratory failure with hypoxia (6) COPD exacerbation Code(s): J44.1 - CHRONIC OBSTRUCTIVE PULMONARY DISEASE W (ACUTE) EXACERBATION (7) Suspected COVID-19 virus infection Code(s): Z20.828 - CONTACT W AND EXPOSURE TO OTH VIRAL COMMUNICABLE DISEASES Assessment/Plan IMP ACUTE HYPPOXEMIC RESPIRATORY FAILURE RUL PNEUMONIA SEPSIS COPD R SIDED BREAST CA S/P MASTECTOMY ETOH TOBACCO ABUSE HYPONATREMIA PLAN titrate O2 to maintain sat 90% ABX INHALED BRONCHODILATORS COVID PCR negative MONITOR LYTES,NA,CBC F/U CHEST X-RAYS TAPER STEROIDS DR RÍOS Problem List - Problems (1) Breast calcification, right Code(s): R92.1 - MAMMOGRAPHIC CALCIFCN FOUND ON DIAGNOSTIC IMAGING OF BREAST (2) Breast cancer in male Code(s): C50.929 - MALIGNANT NEOPLASM OF UNSP SITE OF UNSPECIFIED MALE BREAST (3) Pneumonia Code(s): J18.9 - PNEUMONIA, UNSPECIFIED ORGANISM (4) Sepsis Code(s): A41.9 - SEPSIS, UNSPECIFIED ORGANISM (5) Acute respiratory failure Code(s): J96.00 - ACUTE RESPIRATORY FAILURE, UNSP W HYPOXIA OR HYPERCAPNIA Qualifiers: Respiratory failure complication: hypoxia Qualified Code(s): J96.01 - Acute respiratory failure with hypoxia (6) COPD exacerbation Code(s): J44.1 - CHRONIC OBSTRUCTIVE PULMONARY DISEASE W (ACUTE) EXACERBATION (7) Suspected COVID-19 virus infection Code(s): Z20.828 - CONTACT W AND EXPOSURE TO OTH VIRAL COMMUNICABLE DISEASES (8) COPD with exacerbation Code(s): J44.1 - CHRONIC OBSTRUCTIVE PULMONARY DISEASE W (ACUTE) EXACERBATION
[2019-09-12] MEDS: TAMOXIFEN CITRATE 10 MG TABLET PO SCH (09:54)
[2019-09-12] MEDS: VANCOMYCIN HCL 1,250 MG in DEXTROSE 5%-WATER - 250 ML IVPB SCH (09:55)
--- NOTE | 2019-09-12 11:15 | PN ---
Progress Note, BARREL FINISHER - Note Progress Note: Selected Entries 09/09/19 09/09/19 09/09/19 01:00 03:40 08:50 Breakfast Diet Tolerated Lunch Supper Temperature 102.8 F H 100 F H Pulse Rate 90 84 Blood Pressure 130/71 O2 Sat by Pulse Oximetry (%) Oxygen Delivery Method Fraction of Inspired Oxygen (FIO2) Oxygen Flow Rate 09/09/19 09/09/19 09/09/19 08:59 10:00 11:03 Breakfast 75% 75% Diet Tolerated Fair Lunch Supper Temperature 100.4 F H Pulse Rate 105 H Blood Pressure 135/72 O2 Sat by Pulse Oximetry (%) Oxygen Delivery Method Fraction of Inspired Oxygen (FIO2) Oxygen Flow Rate 09/09/19 09/09/19 09/09/19 14:20 15:18 18:00 Breakfast Diet Tolerated Fair Lunch 25% Supper Temperature 99.3 F 99.3 F Pulse Rate 83 102 H 94 H Blood Pressure 134/74 130/73 O2 Sat by Pulse Oximetry (%) Oxygen Delivery Method Fraction of Inspired Oxygen (FIO2) Oxygen Flow Rate 09/09/19 09/09/19 09/10/19 20:06 22:00 00:00 Breakfast Diet Tolerated Refused Refused Lunch Supper 0 0 Temperature 98.7 F Pulse Rate 91 H Blood Pressure 131/72 O2 Sat by Pulse 90 L Oximetry (%) Oxygen Delivery Method Fraction of Inspired Oxygen (FIO2) Oxygen Flow 6 Rate 09/10/19 09/10/19 09/10/19 01:30 05:30 05:59 Breakfast Diet Tolerated Lunch Supper Temperature 98.7 F Pulse Rate 85 Blood Pressure 141/75 O2 Sat by Pulse 92 L 91 L Oximetry (%) Oxygen Delivery Method Fraction of 50 50 Inspired Oxygen (FIO2) Oxygen Flow Rate 09/10/19 09/10/19 08:30 08:31 Breakfast Diet Tolerated Refused Lunch Supper 0 Temperature Pulse Rate 88 Blood Pressure O2 Sat by Pulse 91 L 91 L Oximetry (%) Oxygen Delivery Nasal Cannula Method Fraction of 50 50 Inspired Oxygen (FIO2) Oxygen Flow 6 Rate Laboratory Tests 09/06/19 09/07/19 09/08/19 06:10 05:25 05:30 WBC 33.5 H* 37.0 H* 40.8 H* 09/10/19 06:55 WBC 38.3 H* Selected Entries 09/11/19 09/11/19 09/11/19 00:58 10:00 10:31 Breakfast Diet Tolerated Poor Supper Temperature 97.8 F 98.5 F Blood Pressure 119/60 124/68 O2 Sat by Pulse Oximetry (%) Oxygen Delivery Method Fraction of Inspired Oxygen (FIO2) Oxygen Flow Rate 09/11/19 09/11/19 09/11/19 14:30 18:00 19:37 Breakfast Diet Tolerated Poor Well Supper 100% Temperature 97.9 F 97.9 F Blood Pressure 137/71 124/62 O2 Sat by Pulse Oximetry (%) Oxygen Delivery Method Fraction of Inspired Oxygen (FIO2) Oxygen Flow Rate 09/11/19 09/12/19 09/12/19 22:00 05:19 09:00 Breakfast Diet Tolerated Well Supper Temperature 98.0 F 97.4 F L Blood Pressure 130/72 123/64 O2 Sat by Pulse 93 L Oximetry (%) Oxygen Delivery Venturi Mask Method Fraction of 50 Inspired Oxygen (FIO2) Oxygen Flow 12 Rate 09/12/19 09/12/19 09:42 10:00 Breakfast 75% Diet Tolerated Well Supper Temperature 98.2 F Blood Pressure 127/67 O2 Sat by Pulse Oximetry (%) Oxygen Delivery Method Fraction of Inspired Oxygen (FIO2) Oxygen Flow Rate Laboratory Tests 09/08/19 09/10/19 09/11/19 05:30 06:55 06:15 WBC 40.8 H* 38.3 H* 38.9 H* Laboratory Tests 09/05/19 05:50 COVID-19 (HEATHER) Not detected IMP ACUTE HYPPOXEMIC RESPIRATORY FAILURE RUL PNEUMONIA SEPSIS COPD R SIDED BREAST CA S/P MASTECTOMY ETOH TOBACCO ABUSE HYPONATREMIA On chopped reg diet/thin liquid ensure pudding Eating more
--- NOTE | 2019-09-12 13:48 | PN ---
Progress Note (short form) - Note Progress Note: I got back the first test of the workup for elevated WBC - FISH. It is low level + for 13q2 deletion This is characteristic of CLL dnn carreis a ood prognosis, as is consistent with a 20 year history of increased WBC counts. I trended them adnd they go back at least a year, from wha results in this system. He declined a Hematology evaluaiton in the past. 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 C ytogenetics to confirm this results are pending.
--- NOTE | 2019-09-12 15:04 | PN ---
Progress Note, Physician History of Present Illness: improving feeling better breathing better - Current Medication List Current Medications: Active Medications Acetaminophen (Tylenol -) 650 mg PO Q6H PRN PRN Reason: FEVER Last Admin: 09/09/19 01:13 Dose: 650 mg Documented by: Albuterol Sulfate (Ventolin Hfa Inhaler -) 2 puff IH Q4H PRN PRN Reason: SHORTNESS OF BREATH Last Admin: 09/07/19 05:46 Dose: 2 puff Documented by: Meropenem 1 gm/ Dextrose 100 mls @ 200 mls/hr IVPB Q8H-IV PIERCE Last Admin: 09/12/19 09:52 Dose: 200 mls/hr Documented by: Vancomycin HCl 1,250 mg/ (Dextrose) 250 mls @ 166.667 mls/hr IVPB Q24H PIER[facility]; Protocol Last Admin: 09/12/19 09:55 Dose: 166.667 mls/hr Documented by: Methylprednisolone Sodium Succinate (Solu-Medrol -) 60 mg IVPUSH Q8H-IV PIERCE Last Admin: 09/12/19 09:54 Dose: 60 mg Documented by: Tamoxifen Citrate (Tamoxifen Citrate) 20 mg PO DAILY [facility] Last Admin: 09/12/19 09:54 Dose: 20 mg Documented by: - Objective Vital Signs: Vital Signs Temperature 97.4 F L 09/12/19 14:35 Pulse Rate 82 09/12/19 14:35 Respiratory Rate 20 09/12/19 14:35 Blood Pressure 112/59 L 09/12/19 14:35 O2 Sat by Pulse Oximetry (%) 93 L 09/12/19 09:00 Constitutional: Yes: No Distress, Calm Cardiovascular: Yes: S1, S2 Respiratory: Yes: Regular, On Nasal O2, Poor Air Entry Gastrointestinal: Yes: Normal Bowel Sounds, Soft Musculoskeletal: Yes: WNL Extremities: Yes: WNL Neurological: Yes: Alert, Oriented Psychiatric: Yes: Alert, Oriented Labs: CBC, BMP 09/11/19 06:15 09/11/19 06:15 INR, PTT INR 1.23 (0.83-1.09) H 09/04/19 10:28 Assessment/Plan Problem List - Problems (1) Breast calcification, right Code(s): R92.1 - MAMMOGRAPHIC CALCIFCN FOUND ON DIAGNOSTIC IMAGING OF BREAST (2) Breast cancer in male Code(s): C50.929 - MALIGNANT NEOPLASM OF UNSP SITE OF UNSPECIFIED MALE BREAST (3) Pneumonia Code(s): J18.9 - PNEUMONIA, UNSPECIFIED ORGANISM (4) Sepsis Code(s): A41.9 - SEPSIS, UNSPECIFIED ORGANISM (5) Acute respiratory failure Code(s): J96.00 - ACUTE RESPIRATORY FAILURE, UNSP W HYPOXIA OR HYPERCAPNIA Qualifiers: Respiratory failure complication: hypoxia Qualified Code(s): J96.01 - Acute respiratory failure with hypoxia (6) COPD exacerbation Code(s): J44.1 - CHRONIC OBSTRUCTIVE PULMONARY DISEASE W (ACUTE) EXACERBATION (7) Suspected COVID-19 virus infection Code(s): Z20.828 - CONTACT W AND EXPOSURE TO OTH VIRAL COMMUNICABLE DISEASES (8) COPD with exacerbation Code(s): J44.1 - CHRONIC OBSTRUCTIVE PULMONARY DISEASE W (ACUTE) EXACERBATION plan continue abx monitor fevers await for cbc rest as per the team will stop karin
[2019-09-12] MEDS: NYSTATIN 500,000 UNITS/5 ML SUSPENSION PO SCH (17:12)
[2019-09-12] MEDS: ALBUTEROL SO4 HFA INHALER IH PRN (21:59)
--- NOTE | 2019-09-12 23:21 | PN ---
Progress Note, Physician History of Present Illness: No new complaints - Current Medication List Current Medications: Active Medications Acetaminophen (Tylenol -) 650 mg PO Q6H PRN PRN Reason: FEVER Last Admin: 09/09/19 01:13 Dose: 650 mg Documented by: Albuterol Sulfate (Ventolin Hfa Inhaler -) 2 puff IH Q4H PRN PRN Reason: SHORTNESS OF BREATH Last Admin: 09/12/19 21:59 Dose: 2 puff Documented by: Meropenem 1 gm/ Dextrose 100 mls @ 200 mls/hr IVPB Q8H-IV PIERCE Last Admin: 09/12/19 17:12 Dose: 200 mls/hr Documented by: Methylprednisolone Sodium Succinate (Solu-Medrol -) 60 mg IVPUSH Q8H-IV [facility]ERCE Last Admin: 09/12/19 17:13 Dose: 60 mg Documented by: Nystatin (Nystatin Oral Suspension -) 500,000 units PO Q6HPO [facility]ER[facility] Last Admin: 09/12/19 17:12 Dose: 500,000 units Documented by: Tamoxifen Citrate (Tamoxifen Citrate) 20 mg PO DAILY [facility] Last Admin: 09/12/19 09:54 Dose: 20 mg Documented by: - Objective Vital Signs: Vital Signs Temperature 97.7 F 09/12/19 22:00 Pulse Rate 76 09/12/19 22:00 Respiratory Rate 22 H 09/12/19 22:00 Blood Pressure 114/53 L 09/12/19 22:00 O2 Sat by Pulse Oximetry (%) 90 L 09/12/19 17:42 Cardiovascular: Yes: WNL, Regular Rate and Rhythm Respiratory: Yes: Other (Coarse BS B/L) Gastrointestinal: Yes: WNL, Normal Bowel Sounds Labs: CBC, BMP 09/11/19 06:15 09/11/19 06:15 INR, PTT INR 1.23 (0.83-1.09) H 09/04/19 10:28 Problem List - Problems (1) Pneumonia Assessment/Plan: CXR showed b/l interstitial opacities COVID 19 negative Cont albuterol inhaler Cont IV meropenem Code(s): J18.9 - PNEUMONIA, UNSPECIFIED ORGANISM (2) COPD (chronic obstructive pulmonary disease) Assessment/Plan: Cont inhaler Cont IV solumedrol Code(s): J44.9 - CHRONIC OBSTRUCTIVE PULMONARY DISEASE, UNSPECIFIED (3) Leukocytosis Assessment/Plan: Probable CLL Flow cytometry pending As per heme Code(s): D72.829 - ELEVATED WHITE BLOOD CELL COUNT, UNSPECIFIED (4) Sepsis Assessment/Plan: Probably due to pneumonia Cont IV meropenem Code(s): A41.9 - SEPSIS, UNSPECIFIED ORGANISM (5) Breast cancer in male Assessment/Plan: Cont tamoxifen Code(s): C50.929 - MALIGNANT NEOPLASM OF UNSP SITE OF UNSPECIFIED MALE BREAST
[2019-09-13] MEDS ORDERED: DEXTROSE 5%-WATER 100 ML IVPB ONE ×3 (00:55→16:26)
[2019-09-13] MEDS ORDERED: MEROPENEM 1 GM VIAL (RESTRICTED TO ID) IVPB ONE ×3 (00:55→16:26)
[2019-09-13] MEDS: NYSTATIN 500,000 UNITS/5 ML SUSPENSION PO SCH ×5 (00:57→17:31)
[2019-09-13] MEDS: MEROPENEM 1 GM in DEXTROSE 5%-WATER 100 ML IVPB SCH ×3 (01:00→17:12)
[2019-09-13] MEDS: methylPREDNISolone NA SUCC 40 MG/1 ML VIAL IVPUSH SCH ×3 (01:00→17:11)
[2019-09-13] MEDS: TAMOXIFEN CITRATE 10 MG TABLET PO SCH (09:47)
--- NOTE | 2019-09-13 11:32 | PN ---
Progress Note, CREDIT ADVISOR - Note Progress Note: Selected Entries 09/12/19 09/12/19 09/12/19 05:19 09:42 10:00 Breakfast 75% Diet Tolerated Well Lunch Supper Temperature 97.4 F L 98.2 F Blood Pressure 123/64 127/67 09/12/19 09/12/19 09/12/19 14:35 18:00 19:53 Breakfast Diet Tolerated Well Well Lunch 75% Supper 75% Temperature 97.4 F L 97.6 F Blood Pressure 112/59 L 138/71 09/12/19 09/13/19 09/13/19 22:00 06:37 08:56 Breakfast Diet Tolerated Lunch Supper Temperature 97.7 F 97.6 F 97.6 F Blood Pressure 114/53 L 114/63 115/60 09/13/19 10:44 Breakfast 100% Diet Tolerated Well Lunch Supper Temperature Blood Pressure Laboratory Tests 09/10/19 09/11/19 06:55 06:15 WBC 38.3 H* 38.9 H* Eating much more. CXR improving RUL consolidation Pt did not eat lunch today, c/o about chopped consistency. Reviewed with nursing,RD. Trial of soft food again. Poor dentition. Soft, easy to chew.
--- NOTE | 2019-09-13 11:47 | PN ---
Progress Note, Physician History of Present Illness: stable afebrile - Current Medication List Current Medications: Active Medications Acetaminophen (Tylenol -) 650 mg PO Q6H PRN PRN Reason: FEVER Last Admin: 09/09/19 01:13 Dose: 650 mg Documented by: Albuterol Sulfate (Ventolin Hfa Inhaler -) 2 puff IH Q4H PRN PRN Reason: SHORTNESS OF BREATH Last Admin: 09/12/19 21:59 Dose: 2 puff Documented by: Meropenem 1 gm/ Dextrose 100 mls @ 200 mls/hr IVPB Q8H-IV [facility]ER[facility] Last Admin: 09/13/19 09:46 Dose: 200 mls/hr Documented by: Methylprednisolone Sodium Succinate (Solu-Medrol -) 60 mg IVPUSH Q8H-IV [facility]ER[facility] Last Admin: 09/13/19 09:47 Dose: 60 mg Documented by: Nystatin (Nystatin Oral Suspension -) 500,000 units PO Q6HPO [facility] Last Admin: 09/13/19 06:40 Dose: 500,000 units Documented by: Tamoxifen Citrate (Tamoxifen Citrate) 20 mg PO DAILY [facility] Last Admin: 09/13/19 09:47 Dose: 20 mg Documented by: - Objective Vital Signs: Vital Signs Temperature 97.6 F 09/13/19 08:56 Pulse Rate 71 09/13/19 08:56 Respiratory Rate 18 09/13/19 08:56 Blood Pressure 115/60 09/13/19 08:56 O2 Sat by Pulse Oximetry (%) 90 L 09/12/19 21:00 Constitutional: Yes: No Distress, Calm Cardiovascular: Yes: S1, S2 Respiratory: Yes: Regular, CTA Bilaterally, On Nasal O2 Gastrointestinal: Yes: Normal Bowel Sounds, Soft Musculoskeletal: Yes: WNL Extremities: Yes: WNL Neurological: Yes: Alert, Oriented Psychiatric: Yes: Alert, Oriented Labs: CBC, BMP 09/11/19 06:15 09/11/19 06:15 INR, PTT INR 1.23 (0.83-1.09) H 09/04/19 10:28 Assessment/Plan Problem List - Problems (1) Breast calcification, right Code(s): R92.1 - MAMMOGRAPHIC CALCIFCN FOUND ON DIAGNOSTIC IMAGING OF BREAST (2) Breast cancer in male Code(s): C50.929 - MALIGNANT NEOPLASM OF UNSP SITE OF UNSPECIFIED MALE BREAST (3) Pneumonia Code(s): J18.9 - PNEUMONIA, UNSPECIFIED ORGANISM (4) Sepsis Code(s): A41.9 - SEPSIS, UNSPECIFIED ORGANISM (5) Acute respiratory failure Code(s): J96.00 - ACUTE RESPIRATORY FAILURE, UNSP W HYPOXIA OR HYPERCAPNIA Qualifiers: Respiratory failure complication: hypoxia Qualified Code(s): J96.01 - Acute respiratory failure with hypoxia (6) COPD exacerbation Code(s): J44.1 - CHRONIC OBSTRUCTIVE PULMONARY DISEASE W (ACUTE) EXACERBATION (7) Suspected COVID-19 virus infection Code(s): Z20.828 - CONTACT W AND EXPOSURE TO OTH VIRAL COMMUNICABLE DISEASES (8) COPD with exacerbation Code(s): J44.1 - CHRONIC OBSTRUCTIVE PULMONARY DISEASE W (ACUTE) EXACERBATION plan continue abx rest as per the team
--- NOTE | 2019-09-13 11:47 | PN ---
Progress Note (short form) - Note Progress Note: PULMONARY OOB TO CHAIR APPEARS STABLE OFFERS NO COMPLAINTS VSS/AFEBRILE Constitutional: Yes: Well Nourished, Calm Eyes: Yes: WNL HENT: Yes: WNL Neck: Yes: WNL Cardiovascular: Yes: Regular Rate and Rhythm, S1, S2 Respiratory: Yes: Rhonchi, Wheezes (less rhonchi and wheezes bilaterally) Gastrointestinal: Yes: Normal Bowel Sounds, Soft Extremities: Yes: WNL Edema: No LABS/MEDS/NOTES/IMAGES/MICRO REVIEWED IMP ACUTE HYPPOXEMIC RESPIRATORY FAILURE RUL PNEUMONIA SEPSIS COPD R SIDED BREAST CA S/P MASTECTOMY ETOH TOBACCO ABUSE HYPONATREMIA PLAN titrate O2 to maintain sat 90% ABX INHALED BRONCHODILATORS COVID PCR negative MONITOR LYTES,NA,CBC F/U CHEST X-RAYS TAPER STEROIDS Stella HAHN MD
--- NOTE | 2019-09-13 21:55 | PN ---
Progress Note, Physician - Current Medication List Current Medications: Active Medications Acetaminophen (Tylenol -) 650 mg PO Q6H PRN PRN Reason: FEVER Last Admin: 09/09/19 01:13 Dose: 650 mg Documented by: Albuterol Sulfate (Ventolin Hfa Inhaler -) 2 puff IH Q4H PRN PRN Reason: SHORTNESS OF BREATH Last Admin: 09/12/19 21:59 Dose: 2 puff Documented by: Meropenem 1 gm/ Dextrose 100 mls @ 200 mls/hr IVPB Q8H-IV [facility] Last Admin: 09/13/19 17:12 Dose: 200 mls/hr Documented by: Methylprednisolone Sodium Succinate (Solu-Medrol -) 60 mg IVPUSH Q8H-IV [facility] Last Admin: 09/13/19 17:11 Dose: 60 mg Documented by: Nystatin (Nystatin Oral Suspension -) 500,000 units PO Q6HPO [facility] Last Admin: 09/13/19 17:31 Dose: Not Given Documented by: Tamoxifen Citrate (Tamoxifen Citrate) 20 mg PO DAILY [facility] Last Admin: 09/13/19 09:47 Dose: 20 mg Documented by: - Objective Vital Signs: Vital Signs Temperature 97.7 F 09/13/19 18:00 Pulse Rate 75 09/13/19 18:00 Respiratory Rate 20 09/13/19 18:00 Blood Pressure 109/59 L 09/13/19 18:00 O2 Sat by Pulse Oximetry (%) 90 L 09/13/19 09:00 Labs: CBC, BMP 09/11/19 06:15 09/11/19 06:15 INR, PTT INR 1.23 (0.83-1.09) H 09/04/19 10:28 Problem List - Problems (1) Pneumonia Code(s): J18.9 - PNEUMONIA, UNSPECIFIED ORGANISM (2) COPD (chronic obstructive pulmonary disease) Code(s): J44.9 - CHRONIC OBSTRUCTIVE PULMONARY DISEASE, UNSPECIFIED (3) Leukocytosis Code(s): D72.829 - ELEVATED WHITE BLOOD CELL COUNT, UNSPECIFIED (4) Sepsis Code(s): A41.9 - SEPSIS, UNSPECIFIED ORGANISM (5) Breast cancer in male Code(s): C50.929 - MALIGNANT NEOPLASM OF UNSP SITE OF UNSPECIFIED MALE BREAST
[2019-09-14] MEDS ORDERED: MEROPENEM 1 GM VIAL (RESTRICTED TO ID) IVPB ONE ×3 (01:13→16:37)
[2019-09-14] MEDS ORDERED: DEXTROSE 5%-WATER 100 ML IVPB ONE ×3 (01:14→16:37)
[2019-09-14] MEDS: methylPREDNISolone NA SUCC 40 MG/1 ML VIAL IVPUSH SCH ×3 (01:31→17:26)
[2019-09-14] MEDS: MEROPENEM 1 GM in DEXTROSE 5%-WATER 100 ML IVPB SCH ×3 (01:31→17:26)
[2019-09-14] MEDS: NYSTATIN 500,000 UNITS/5 ML SUSPENSION PO SCH ×4 (01:31→17:26)
--- NOTE | 2019-09-14 06:03 | PN.HO ---
Progress Note (short form) - Note Progress Note: PAtient seen and examined AFVSS Heart-- S1, S2 regular. No m/r/g Lungs: wheezing b/l Abd: Soft, Normal bowel sounds, No organomegaly Ext:No significant edema LAbs/MEds reviewed A/P 73 y/o Patient with COPD, alcohol use, Leukocytosis apparently chronic, Flow consistent with CLL. Del 13q 14 present. ? favourable prognosis Discussed diagnosis with patient and need for close monitoring by HEMe-onc as aout patiet will check immunoglobulin profile and replete IG G if <400 h/o right breast cancer--on tamoxifen
[2019-09-14] MEDS: TAMOXIFEN CITRATE 10 MG TABLET PO SCH (09:11)
--- NOTE | 2019-09-14 14:07 | PN ---
Progress Note (short form) - Note Progress Note: Resting in NAD. Less SOB overall. No acute events overnight. Intake & Output 09/11/19 09/12/19 09/13/19 09/14/19 23:59 23:59 23:59 23:59 Intake Total 1250 1750 1650 300 Output Total 650 2400 2000 950 Balance 600 -650 -350 -650 Weight 198 lb Last Vital Signs Temp Pulse Resp BP Pulse Ox 97.4 F L 73 20 128/71 92 L 09/14/19 12:58 09/14/19 12:58 09/14/19 12:58 09/14/19 12:58 09/14/19 09:00 Active Medications Acetaminophen (Tylenol -) 650 mg PO Q6H PRN PRN Reason: FEVER Last Admin: 09/09/19 01:13 Dose: 650 mg Documented by: Albuterol Sulfate (Ventolin Hfa Inhaler -) 2 puff IH Q4H PRN PRN Reason: SHORTNESS OF BREATH Last Admin: 09/12/19 21:59 Dose: 2 puff Documented by: Meropenem 1 gm/ Dextrose 100 mls @ 200 mls/hr IVPB Q8H-IV [facility] Last Admin: 09/14/19 09:11 Dose: 200 mls/hr Documented by: Methylprednisolone Sodium Succinate (Solu-Medrol -) 60 mg IVPUSH Q8H-IV [facility] Last Admin: 09/14/19 09:11 Dose: 60 mg Documented by: Nystatin (Nystatin Oral Suspension -) 500,000 units PO Q6HPO [facility] Last Admin: 09/14/19 12:48 Dose: 500,000 units Documented by: Tamoxifen Citrate (Tamoxifen Citrate) 20 mg PO DAILY [facility] Last Admin: 09/14/19 09:11 Dose: 20 mg Documented by: Constitutional: Yes: NAD Eyes: Yes: WNL HENT: Yes: WNL Neck: Yes: WNL Cardiovascular: Yes: Regular Rate and Rhythm, S1, S2 Respiratory: Yes: Bilateral scattered rhonchi, no wheezes Gastrointestinal: Yes: Normal Bowel Sounds, Soft Extremities: Yes: WNL Edema: No Labs: Problem List - Problems (1) Breast calcification, right Code(s): R92.1 - MAMMOGRAPHIC CALCIFCN FOUND ON DIAGNOSTIC IMAGING OF BREAST (2) Breast cancer in male Code(s): C50.929 - MALIGNANT NEOPLASM OF UNSP SITE OF UNSPECIFIED MALE BREAST (3) Pneumonia Code(s): J18.9 - PNEUMONIA, UNSPECIFIED ORGANISM (4) Sepsis Code(s): A41.9 - SEPSIS, UNSPECIFIED ORGANISM (5) Acute respiratory failure Code(s): J96.00 - ACUTE RESPIRATORY FAILURE, UNSP W HYPOXIA OR HYPERCAPNIA Qualifiers: Respiratory failure complication: hypoxia Qualified Code(s): J96.01 - Acute respiratory failure with hypoxia (6) COPD exacerbation Code(s): J44.1 - CHRONIC OBSTRUCTIVE PULMONARY DISEASE W (ACUTE) EXACERBATION (7) Suspected COVID-19 virus infection Code(s): Z20.828 - CONTACT W AND EXPOSURE TO OTH VIRAL COMMUNICABLE DISEASES Assessment/Plan IMP ACUTE HYPPOXEMIC RESPIRATORY FAILURE RUL PNEUMONIA SEPSIS COPD R SIDED BREAST CA S/P MASTECTOMY ETOH TOBACCO ABUSE HYPONATREMIA PLAN Supplemental O2 to maintain saturation ABX BD TX COVID PCR negative Taper steroids Dr Moreira
--- NOTE | 2019-09-14 15:50 | PN ---
Progress Note, Physician History of Present Illness: Pt states he feels well. Remains afebrile, denies SOB/cough. Has no specific complaints. - Current Medication List Current Medications: Active Medications Acetaminophen (Tylenol -) 650 mg PO Q6H PRN PRN Reason: FEVER Last Admin: 09/09/19 01:13 Dose: 650 mg Documented by: Albuterol Sulfate (Ventolin Hfa Inhaler -) 2 puff IH Q4H PRN PRN Reason: SHORTNESS OF BREATH Last Admin: 09/12/19 21:59 Dose: 2 puff Documented by: Meropenem 1 gm/ Dextrose 100 mls @ 200 mls/hr IVPB Q8H-IV [facility] Last Admin: 09/14/19 09:11 Dose: 200 mls/hr Documented by: Methylprednisolone Sodium Succinate (Solu-Medrol -) 40 mg IVPUSH Q8H-IV [facility] Nystatin (Nystatin Oral Suspension -) 500,000 units PO Q6HPO [facility] Last Admin: 09/14/19 12:48 Dose: 500,000 units Documented by: Tamoxifen Citrate (Tamoxifen Citrate) 20 mg PO DAILY [facility] Last Admin: 09/14/19 09:11 Dose: 20 mg Documented by: - Objective Vital Signs: Vital Signs Temperature 97.4 F L 09/14/19 12:58 Pulse Rate 73 09/14/19 12:58 Respiratory Rate 20 09/14/19 12:58 Blood Pressure 128/71 09/14/19 12:58 O2 Sat by Pulse Oximetry (%) 92 L 09/14/19 09:00 Constitutional: Yes: No Distress, Calm Cardiovascular: Yes: Regular Rate and Rhythm Respiratory: Yes: Regular Gastrointestinal: Yes: Normal Bowel Sounds, Soft Genitourinary: Yes: WNL Musculoskeletal: Yes: WNL Extremities: Yes: WNL Neurological: Yes: Alert, Oriented Labs: CBC, BMP 09/11/19 06:15 09/11/19 06:15 INR, PTT INR 1.23 (0.83-1.09) H 09/04/19 10:28 Laboratory Last Values WBC 38.9 K/mm3 (4.0-10.0) H* 09/11/19 06:15 RBC 4.43 M/mm3 (4.00-5.60) 09/11/19 06:15 Hgb 13.2 GM/dL (11.7-16.9) 09/11/19 06:15 Hct 40.3 % (35.4-49) 09/11/19 06:15 MCV 90.9 fl (80-96) 09/11/19 06:15 MCH 29.7 pg (25.7-33.7) 09/11/19 06:15 MCHC 32.7 g/dl (32.0-35.9) 09/11/19 06:15 RDW 16.0 % (11.9-15.9) H 09/11/19 06:15 Plt Count 118 K/MM3 (134-434) L 09/11/19 06:15 MPV 12.3 fl (7.5-11.1) H D 09/11/19 06:15 Absolute Neuts (auto) 17.1 K/mm3 (1.5-8.0) H 09/11/19 06:15 Total Counted Cancelled 09/08/19 05:30 Neutrophils % 44.1 % (42.8-82.8) 09/11/19 06:15 Neutrophils % (Manual) 52.0 % (42.8-82.8) D 09/11/19 06:15 Band Neutrophils % 0.0 % 09/11/19 06:15 Lymphocytes % 53.9 % (8-40) H 09/11/19 06:15 Lymphocytes % (Manual) 48.0 % (8-40) H 09/11/19 06:15 Monocytes % 1.8 % (3.8-10.2) L D 09/11/19 06:15 Monocytes % (Manual) 0 % (3.8-10.2) L 09/11/19 06:15 Eosinophils % 0.0 % (0-4.5) 09/11/19 06:15 Eosinophils % (Manual) 0.0 % (0-4.5) 09/11/19 06:15 Basophils % 0.2 % (0-2.0) 09/11/19 06:15 Basophils % (Manual) 0.0 % (0-2.0) 09/11/19 06:15 Myelocytes % (Man) 0 % (0-2) 09/11/19 06:15 Promyelocytes % (Man) 0 % (0-2) 09/11/19 06:15 Blast Cells % (Manual) 0 % (0-0) 09/11/19 06:15 Nucleated RBC % 0 % (0-0) 09/11/19 06:15 Metamyelocytes 0 % (0-2) 09/11/19 06:15 Differential Comment 09/10/19 06:55 Hypersegmented Neuts Cancelled 09/08/19 05:30 Plasma Cells Cancelled 09/08/19 05:30 Smudge Cells Cancelled 09/08/19 05:30 Other Cell Type Cancelled 09/08/19 05:30 Hypochromia 0 09/11/19 06:15 Toxic Granulation Cancelled 09/08/19 05:30 Dohle Bodies Cancelled 09/08/19 05:30 Mauricio Rods Cancelled 09/08/19 05:30 Platelet Estimate Decreased 09/11/19 06:15 Platelet Comment Present 09/11/19 06:15 Platelet Comment Cancelled 09/08/19 05:30 Polychromasia 1+ 09/11/19 06:15 Poikilocytosis 0 09/10/19 06:55 Basophilic Stippling Cancelled 09/08/19 05:30 Anisocytosis 1+ 09/11/19 06:15 Microcytosis 0 09/10/19 06:55 Macrocytosis 0 09/10/19 06:55 Spherocytes 1+ 09/08/19 05:30 Spherocytes Cancelled 09/08/19 05:30 Siderocytes Cancelled 09/08/19 05:30 Sickle Cells Cancelled 09/08/19 05:30 Target Cells Cancelled 09/08/19 05:30 Tear Drop Cells 1+ 09/08/19 05:30 Tear Drop Cells Cancelled 09/08/19 05:30 Ovalocytes 1+ 09/08/19 05:30 Ovalocytes Cancelled 09/08/19 05:30 Stomatocytes Cancelled 09/08/19 05:30 Helmet Cells Cancelled 09/08/19 05:30 Pat[place]-Brooks Bodies Cancelled 09/08/19 05:30 [place] Rings Cancelled 09/08/19 05:30 [place] Cells 1+ 09/11/19 06:15 Acanthocytes (Spur) Cancelled 09/08/19 05:30 Rouleaux Cancelled 09/08/19 05:30 Fragmented RBCs Cancelled 09/08/19 05:30 Schistocytes Cancelled 09/08/19 05:30 PT with INR 14.50 SEC (9.7-13.0) H 09/04/19 10:28 INR 1.23 (0.83-1.09) H 09/04/19 10:28 PTT (Actin FS) 29.8 SECONDS (25.2-36.5) 09/04/19 10:28 VBG pH 7.40 (7.31-7.41) 09/04/19 10:28 POC VBG pCO2 35.9 mmHg (38-52) L 09/04/19 10:28 POC VBG pO2 < 49 mmHg (28-48) H 09/04/19 10:28 VBG HCO3 21.7 mmol/L (23-29) L 09/04/19 10:28 VBG O2 Sat (Rachelle) 76.8 % (70-80) 09/04/19 10: VBG Base Excess -2.4 mmol/L (-2-2) L 09/04/19 10:28 Sodium 133 mmol/L (136-145) L 09/11/19 06:15 Potassium 4.6 mmol/L (3.5-5.1) 09/11/19 06:15 Chloride 98 mmol/L (98-107) 09/11/19 06:15 Carbon Dioxide 28 mmol/L (21-32) 09/11/19 06:15 Anion Gap 8 MMOL/L (8-16) 09/11/19 06:15 BUN 29.8 mg/dL (7-18) H 09/11/19 06:15 Creatinine 0.7 mg/dL (0.55-1.3) 09/11/19 06:15 Est GFR (CKD-EPI)AfAm 110.04 09/11/19 06:15 Est GFR (CKD-EPI)NonAf 94.95 09/11/19 06:15 Random Glucose 138 mg/dL (74-106) H 09/11/19 06:15 Lactic Acid 1.4 mmol/L (0.4-2.0) 09/04/19 10:28 Calcium 8.2 mg/dL (8.5-10.1) L 09/11/19 06:15 Total Bilirubin 0.8 mg/dL (0.2-1) 09/11/19 06:15 AST 70 U/L (15-37) H 09/11/19 06:15 ALT 70 U/L (13-61) H 09/11/19 06:15 Alkaline Phosphatase 87 U/L (45-117) 09/11/19 06:15 Troponin I < 0.02 ng/ml (0.00-0.05) 09/04/19 10:28 Total Protein 5.0 g/dl (6.4-8.2) L 09/11/19 06:15 Albumin 1.4 g/dl (3.4-5.0) L 09/11/19 06:15 Urine Color Yellow 09/04/19 14:00 Urine Appearance Clear 09/04/19 14:00 Urine pH 5.5 (5.0-8.0) 09/04/19 14:00 Ur Specific [place] 1.019 (1.010-1.035) 09/04/19 14:00 Urine Protein 2+ (NEGATIVE) H 09/04/19 14:00 Urine Glucose (UA) Negative (NEGATIVE) 09/04/19 14:00 Urine Ketones 1+ (NEGATIVE) H 09/04/19 14:00 Urine Blood 1+ (NEGATIVE) H 09/04/19 14:00 Urine Nitrite Negative (NEGATIVE) 09/04/19 14:00 Urine Bilirubin Negative (NEGATIVE) 09/04/19 14:00 Urine Urobilinogen 1.0 mg/dL (0.2-1.0) 09/04/19 14:00 Ur Leukocyte Esterase Negative (NEGATIVE) 09/04/19 14:00 Urine WBC (Auto) 11 /uL (0-25.8) 09/04/19 14:00 Urine RBC (Auto) 11 /uL (0-23.9) 09/04/19 14:00 Urine Casts (Auto) 1 /uL (0-3.1) 09/04/19 14:00 U Epithel Cells (Auto) 11 /uL (0-25.1) 09/04/19 14:00 Urine Bacteria (Auto) 33 /uL (0-1359) 09/04/19 14:00 Urine Yeast (Auto) Negative (NEGATIVE) 09/04/19 14:00 Random Vancomycin 5.4 ug/ml (5-26) 09/12/19 05:15 COVID-19 (HEATHER) Not detected (Not Detected) 09/05/19 05:50 Microbiology 09/04/19 10:28 Blood - Peripheral Venous Blood Culture - Final NO GROWTH AFTER 5 DAYS INCUBATION 09/04/19 10:28 Blood - Peripheral Venous Blood Culture - Final NO GROWTH AFTER 5 DAYS INCUBATION 09/04/19 14:00 Urine - Urine Clean Catch Urine Culture - Final NO GROWTH OBTAINED - ....Imaging Chest X-ray: Report Reviewed Problem List - Problems (1) Breast cancer in male Code(s): C50.929 - MALIGNANT NEOPLASM OF UNSP SITE OF UNSPECIFIED MALE BREAST (2) Pneumonia Code(s): J18.9 - PNEUMONIA, UNSPECIFIED ORGANISM (3) Acute respiratory failure Code(s): J96.00 - ACUTE RESPIRATORY FAILURE, UNSP W HYPOXIA OR HYPERCAPNIA Qualifiers: Respiratory failure complication: hypoxia Qualified Code(s): J96.01 - Acute respiratory failure with hypoxia (4) COPD (chronic obstructive pulmonary disease) Code(s): J44.9 - CHRONIC OBSTRUCTIVE PULMONARY DISEASE, UNSPECIFIED (5) Leukocytosis Code(s): D72.829 - ELEVATED WHITE BLOOD CELL COUNT, UNSPECIFIED Assessment/Plan Fever RUL PNA COPD Chronic leukocytosis/CLL Hx of Breast CA s/p mastectomy -- pt afebrile, continue Meropenem x 3 more days -- Heme/Onc following, w/u consistent with CLL -- continue monitor, vitals currently stable
[2019-09-14] MEDS: ALBUTEROL SO4 HFA INHALER IH PRN ×2 (17:57→21:40)
--- NOTE | 2019-09-14 18:06 | PN ---
Progress Note, Physician - Current Medication List Current Medications: Active Medications Acetaminophen (Tylenol -) 650 mg PO Q6H PRN PRN Reason: FEVER Last Admin: 09/09/19 01:13 Dose: 650 mg Documented by: Albuterol Sulfate (Ventolin Hfa Inhaler -) 2 puff IH Q4H PRN PRN Reason: SHORTNESS OF BREATH Last Admin: 09/14/19 17:57 Dose: 2 puff Documented by: Meropenem 1 gm/ Dextrose 100 mls @ 200 mls/hr IVPB Q8H-IV [facility] Last Admin: 09/14/19 17:26 Dose: 200 mls/hr Documented by: Methylprednisolone Sodium Succinate (Solu-Medrol -) 40 mg IVPUSH Q8H-IV [facility] Last Admin: 09/14/19 17:26 Dose: 40 mg Documented by: Nystatin (Nystatin Oral Suspension -) 500,000 units PO Q6HPO [facility] Last Admin: 09/14/19 17:26 Dose: 500,000 units Documented by: Tamoxifen Citrate (Tamoxifen Citrate) 20 mg PO DAILY [facility] Last Admin: 09/14/19 09:11 Dose: 20 mg Documented by: - Objective Vital Signs: Vital Signs Temperature 97.4 F L 09/14/19 12:58 Pulse Rate 73 09/14/19 12:58 Respiratory Rate 20 09/14/19 12:58 Blood Pressure 128/71 09/14/19 12:58 O2 Sat by Pulse Oximetry (%) 92 L 09/14/19 09:00 Labs: CBC, BMP 09/11/19 06:15 09/11/19 06:15 INR, PTT INR 1.23 (0.83-1.09) H 09/04/19 10:28 Problem List - Problems (1) Pneumonia Code(s): J18.9 - PNEUMONIA, UNSPECIFIED ORGANISM (2) COPD (chronic obstructive pulmonary disease) Code(s): J44.9 - CHRONIC OBSTRUCTIVE PULMONARY DISEASE, UNSPECIFIED (3) Leukocytosis Code(s): D72.829 - ELEVATED WHITE BLOOD CELL COUNT, UNSPECIFIED (4) Sepsis Code(s): A41.9 - SEPSIS, UNSPECIFIED ORGANISM (5) Breast cancer in male Code(s): C50.929 - MALIGNANT NEOPLASM OF UNSP SITE OF UNSPECIFIED MALE BREAST
[2019-09-15] MEDS ORDERED: DEXTROSE 5%-WATER 100 ML IVPB ONE ×3 (00:55→16:20)
[2019-09-15] MEDS ORDERED: MEROPENEM 1 GM VIAL (RESTRICTED TO ID) IVPB ONE ×3 (00:55→16:20)
[2019-09-15] MEDS: NYSTATIN 500,000 UNITS/5 ML SUSPENSION PO SCH ×4 (00:59→17:29)
[2019-09-15] MEDS: MEROPENEM 1 GM in DEXTROSE 5%-WATER 100 ML IVPB SCH ×3 (01:00→17:28)
[2019-09-15] MEDS: methylPREDNISolone NA SUCC 40 MG/1 ML VIAL IVPUSH SCH ×3 (01:00→17:29)
[2019-09-15] MEDS: TAMOXIFEN CITRATE 10 MG TABLET PO SCH (09:34)
[2019-09-15] MEDS: ALBUTEROL SO4 HFA INHALER IH PRN ×2 (09:51→20:39)
--- NOTE | 2019-09-15 13:03 | PN ---
Progress Note (short form) - Note Progress Note: OOB to chair. Appears much more comfortable. 6 L NC O2. Less SOB overall. No acute events overnight. Intake & Output 09/12/19 09/13/19 09/14/19 09/15/19 23:59 23:59 23:59 23:59 Intake Total 1750 1650 700 400 Output Total 2400 2000 1750 500 Balance -650 -350 -1050 -100 Last Vital Signs Temp Pulse Resp BP Pulse Ox 97.5 F L 71 20 113/59 L 94 L 09/15/19 09:47 09/15/19 09:47 09/15/19 09:47 09/15/19 09:47 09/15/19 09:00 Active Medications Acetaminophen (Tylenol -) 650 mg PO Q6H PRN PRN Reason: FEVER Last Admin: 09/09/19 01:13 Dose: 650 mg Documented by: Albuterol Sulfate (Ventolin Hfa Inhaler -) 2 puff IH Q4H PRN PRN Reason: SHORTNESS OF BREATH Last Admin: 09/15/19 09:51 Dose: 2 puff Documented by: Meropenem 1 gm/ Dextrose 100 mls @ 200 mls/hr IVPB Q8H-IV [facility] Last Admin: 09/15/19 09:34 Dose: 200 mls/hr Documented by: Methylprednisolone Sodium Succinate (Solu-Medrol -) 40 mg IVPUSH Q8H-IV [facility] Last Admin: 09/15/19 09:34 Dose: 40 mg Documented by: Nystatin (Nystatin Oral Suspension -) 500,000 units PO Q6HPO [facility] Last Admin: 09/15/19 11:58 Dose: Not Given Documented by: Tamoxifen Citrate (Tamoxifen Citrate) 20 mg PO DAILY [facility] Last Admin: 09/15/19 09:34 Dose: 20 mg Documented by: Constitutional: Yes: NAD Eyes: Yes: WNL HENT: Yes: WNL Neck: Yes: WNL Cardiovascular: Yes: Regular Rate and Rhythm, S1, S2 Respiratory: Yes: Bilateral scattered rhonchi, no wheezes Gastrointestinal: Yes: Normal Bowel Sounds, Soft Extremities: Yes: WNL Edema: No Labs: Problem List - Problems (1) Breast calcification, right Code(s): R92.1 - MAMMOGRAPHIC CALCIFCN FOUND ON DIAGNOSTIC IMAGING OF BREAST (2) Breast cancer in male Code(s): C50.929 - MALIGNANT NEOPLASM OF UNSP SITE OF UNSPECIFIED MALE BREAST (3) Pneumonia Code(s): J18.9 - PNEUMONIA, UNSPECIFIED ORGANISM (4) Sepsis Code(s): A41.9 - SEPSIS, UNSPECIFIED ORGANISM (5) Acute respiratory failure Code(s): J96.00 - ACUTE RESPIRATORY FAILURE, UNSP W HYPOXIA OR HYPERCAPNIA Qualifiers: Respiratory failure complication: hypoxia Qualified Code(s): J96.01 - Acute respiratory failure with hypoxia (6) COPD exacerbation Code(s): J44.1 - CHRONIC OBSTRUCTIVE PULMONARY DISEASE W (ACUTE) EXACERBATION (7) Suspected COVID-19 virus infection Code(s): Z20.828 - CONTACT W AND EXPOSURE TO OTH VIRAL COMMUNICABLE DISEASES Assessment/Plan IMP ACUTE HYPPOXEMIC RESPIRATORY FAILURE RUL PNEUMONIA SEPSIS COPD R SIDED BREAST CA S/P MASTECTOMY ETOH TOBACCO ABUSE HYPONATREMIA PLAN Supplemental O2 to maintain saturation ABX BD TX COVID PCR negative Will further taper steroids in AM Dr Moreira
--- NOTE | 2019-09-15 17:26 | PN ---
Progress Note, Physician History of Present Illness: Pt states he feels well. Breathing comfortably on O2 via NC. Denies having any specific complaints. - Current Medication List Current Medications: Active Medications Acetaminophen (Tylenol -) 650 mg PO Q6H PRN PRN Reason: FEVER Last Admin: 09/09/19 01:13 Dose: 650 mg Documented by: Albuterol Sulfate (Ventolin Hfa Inhaler -) 2 puff IH Q4H PRN PRN Reason: SHORTNESS OF BREATH Last Admin: 09/15/19 09:51 Dose: 2 puff Documented by: Meropenem 1 gm/ Dextrose 100 mls @ 200 mls/hr IVPB Q8H-IV [facility] Last Admin: 09/15/19 09:34 Dose: 200 mls/hr Documented by: Methylprednisolone Sodium Succinate (Solu-Medrol -) 40 mg IVPUSH Q8H-IV [facility] Last Admin: 09/15/19 09:34 Dose: 40 mg Documented by: Nystatin (Nystatin Oral Suspension -) 500,000 units PO Q6HPO [facility] Last Admin: 09/15/19 11:58 Dose: Not Given Documented by: Tamoxifen Citrate (Tamoxifen Citrate) 20 mg PO DAILY [facility] Last Admin: 09/15/19 09:34 Dose: 20 mg Documented by: - Objective Vital Signs: Vital Signs Temperature 97.4 F L 09/15/19 13:34 Pulse Rate 81 09/15/19 13:34 Respiratory Rate 20 09/15/19 13:34 Blood Pressure 103/35 L 09/15/19 13:34 O2 Sat by Pulse Oximetry (%) 94 L 09/15/19 09:00 Constitutional: Yes: No Distress, Calm Cardiovascular: Yes: Pulse Irregular Respiratory: Yes: Regular, On Nasal O2 Gastrointestinal: Yes: Normal Bowel Sounds, Soft Genitourinary: Yes: WNL Neurological: Yes: Alert, Oriented Labs: CBC, BMP 09/11/19 06:15 09/11/19 06:15 INR, PTT INR 1.23 (0.83-1.09) H 09/04/19 10:28 Microbiology 09/04/19 10:28 Blood - Peripheral Venous Blood Culture - Final NO GROWTH AFTER 5 DAYS INCUBATION 09/04/19 10:28 Blood - Peripheral Venous Blood Culture - Final NO GROWTH AFTER 5 DAYS INCUBATION 09/04/19 14:00 Urine - Urine Clean Catch Urine Culture - Final NO GROWTH OBTAINED Problem List - Problems (1) Breast cancer in male Code(s): C50.929 - MALIGNANT NEOPLASM OF UNSP SITE OF UNSPECIFIED MALE BREAST (2) Pneumonia Code(s): J18.9 - PNEUMONIA, UNSPECIFIED ORGANISM (3) Acute respiratory failure Code(s): J96.00 - ACUTE RESPIRATORY FAILURE, UNSP W HYPOXIA OR HYPERCAPNIA Qualifiers: Respiratory failure complication: hypoxia Qualified Code(s): J96.01 - Acute respiratory failure with hypoxia (4) COPD (chronic obstructive pulmonary disease) Code(s): J44.9 - CHRONIC OBSTRUCTIVE PULMONARY DISEASE, UNSPECIFIED (5) Leukocytosis Code(s): D72.829 - ELEVATED WHITE BLOOD CELL COUNT, UNSPECIFIED Assessment/Plan Fever RUL PNA COPD Acute respiratory failure Chronic leukocytosis/CLL Hx of Breast CA s/p mastectomy -- pt afebrile, without distress on NC, continue Meropenem x 2 more days -- Heme/Onc following, w/u consistent with CLL -- continue monitor, vitals currently stable
[2019-09-15] MEDS: DOCUSATE SODIUM 100 MG CAPSULE (FP) PO SCH ×2 (18:09→21:06)
--- NOTE | 2019-09-15 21:47 | PN ---
Progress Note, Physician History of Present Illness: No new complaints - Current Medication List Current Medications: Active Medications Acetaminophen (Tylenol -) 650 mg PO Q6H PRN PRN Reason: FEVER Last Admin: 09/09/19 01:13 Dose: 650 mg Documented by: Albuterol Sulfate (Ventolin Hfa Inhaler -) 2 puff IH Q4H PRN PRN Reason: SHORTNESS OF BREATH Last Admin: 09/15/19 20:39 Dose: 2 puff Documented by: Docusate Sodium (Colace -) 100 mg PO TID [facility] Last Admin: 09/15/19 21:06 Dose: 100 mg Documented by: Meropenem 1 gm/ Dextrose 100 mls @ 200 mls/hr IVPB Q8H-IV [facility] Last Admin: 09/15/19 17:28 Dose: 200 mls/hr Documented by: Methylprednisolone Sodium Succinate (Solu-Medrol -) 40 mg IVPUSH Q8H-IV [facility] Last Admin: 09/15/19 17:29 Dose: 40 mg Documented by: Nystatin (Nystatin Oral Suspension -) 500,000 units PO Q6HPO [facility] Last Admin: 09/15/19 17:29 Dose: Not Given Documented by: Tamoxifen Citrate (Tamoxifen Citrate) 20 mg PO DAILY [facility] Last Admin: 09/15/19 09:34 Dose: 20 mg Documented by: - Objective Vital Signs: Vital Signs Temperature 97.6 F 09/15/19 20:44 Pulse Rate 75 09/15/19 20:44 Respiratory Rate 18 09/15/19 20:44 Blood Pressure 108/60 09/15/19 20:44 O2 Sat by Pulse Oximetry (%) 94 L 09/15/19 09:00 Cardiovascular: Yes: WNL, Regular Rate and Rhythm Respiratory: Yes: Diminished Gastrointestinal: Yes: WNL, Normal Bowel Sounds, Soft Labs: CBC, BMP 09/11/19 06:15 09/11/19 06:15 INR, PTT INR 1.23 (0.83-1.09) H 09/04/19 10:28 Problem List - Problems (1) Pneumonia Assessment/Plan: CXR showed b/l interstitial opacities COVID 19 negative Cont albuterol inhaler Cont IV meropenem Code(s): J18.9 - PNEUMONIA, UNSPECIFIED ORGANISM (2) COPD (chronic obstructive pulmonary disease) Assessment/Plan: Cont inhaler Cont IV solumedrol Code(s): J44.9 - CHRONIC OBSTRUCTIVE PULMONARY DISEASE, UNSPECIFIED (3) Leukocytosis Assessment/Plan: Probable CLL Flow cytometry pending As per heme Code(s): D72.829 - ELEVATED WHITE BLOOD CELL COUNT, UNSPECIFIED (4) Sepsis Assessment/Plan: Probably due to pneumonia Cont IV meropenem Code(s): A41.9 - SEPSIS, UNSPECIFIED ORGANISM (5) Breast cancer in male Assessment/Plan: Cont tamoxifen Code(s): C50.929 - MALIGNANT NEOPLASM OF UNSP SITE OF UNSPECIFIED MALE BREAST
[2019-09-16] MEDS: NYSTATIN 500,000 UNITS/5 ML SUSPENSION PO SCH ×4 (00:04→18:10)
[2019-09-16] MEDS ORDERED: MEROPENEM 1 GM VIAL (RESTRICTED TO ID) IVPB ONE ×3 (01:52→18:07)
[2019-09-16] MEDS: methylPREDNISolone NA SUCC 40 MG/1 ML VIAL IVPUSH SCH ×3 (02:00→22:24)
[2019-09-16] MEDS: MEROPENEM 1 GM in DEXTROSE 5%-WATER 100 ML IVPB SCH ×3 (02:00→18:09)
[2019-09-16] MEDS: DOCUSATE SODIUM 100 MG CAPSULE (FP) PO SCH ×3 (06:45→22:24)
[2019-09-16] MEDS ORDERED: DEXTROSE 5%-WATER 100 ML IVPB ONE ×2 (09:30→18:07)
[2019-09-16] MEDS: TAMOXIFEN CITRATE 10 MG TABLET PO SCH (09:34)
--- NOTE | 2019-09-16 09:42 | PN ---
Progress Note, Physician History of Present Illness: starting to feel better no issues - Current Medication List Current Medications: Active Medications Acetaminophen (Tylenol -) 650 mg PO Q6H PRN PRN Reason: FEVER Last Admin: 09/09/19 01:13 Dose: 650 mg Documented by: Albuterol Sulfate (Ventolin Hfa Inhaler -) 2 puff IH Q4H PRN PRN Reason: SHORTNESS OF BREATH Last Admin: 09/15/19 20:39 Dose: 2 puff Documented by: Docusate Sodium (Colace -) 100 mg PO TID [facility] Last Admin: 09/16/19 06:45 Dose: 100 mg Documented by: Meropenem 1 gm/ Dextrose 100 mls @ 200 mls/hr IVPB Q8H-IV [facility] Last Admin: 09/16/19 09:34 Dose: 200 mls/hr Documented by: Methylprednisolone Sodium Succinate (Solu-Medrol -) 40 mg IVPUSH Q8H-IV [facility] Last Admin: 09/16/19 09:34 Dose: 40 mg Documented by: Nystatin (Nystatin Oral Suspension -) 500,000 units PO Q6HPO [facility] Last Admin: 09/16/19 06:11 Dose: Not Given Documented by: Tamoxifen Citrate (Tamoxifen Citrate) 20 mg PO DAILY [facility] Last Admin: 09/16/19 09:34 Dose: 20 mg Documented by: - Objective Vital Signs: Vital Signs Temperature 97.8 F 09/16/19 05:34 Pulse Rate 67 09/16/19 05:34 Respiratory Rate 18 09/16/19 05:34 Blood Pressure 118/73 09/16/19 05:34 O2 Sat by Pulse Oximetry (%) 95 09/15/19 21:00 Constitutional: Yes: No Distress, Calm Cardiovascular: Yes: S1, S2 Respiratory: Yes: Regular, On Nasal O2, Poor Air Entry Gastrointestinal: Yes: Normal Bowel Sounds, Soft Musculoskeletal: Yes: WNL Extremities: Yes: WNL Neurological: Yes: Alert, Oriented Psychiatric: Yes: Alert, Oriented Labs: CBC, BMP 09/11/19 06:15 09/11/19 06:15 INR, PTT INR 1.23 (0.83-1.09) H 09/04/19 10:28 Assessment/Plan Problem List - Problems (1) Breast calcification, right Code(s): R92.1 - MAMMOGRAPHIC CALCIFCN FOUND ON DIAGNOSTIC IMAGING OF BREAST (2) Breast cancer in male Code(s): C50.929 - MALIGNANT NEOPLASM OF UNSP SITE OF UNSPECIFIED MALE BREAST (3) Pneumonia Code(s): J18.9 - PNEUMONIA, UNSPECIFIED ORGANISM (4) Sepsis Code(s): A41.9 - SEPSIS, UNSPECIFIED ORGANISM (5) Acute respiratory failure Code(s): J96.00 - ACUTE RESPIRATORY FAILURE, UNSP W HYPOXIA OR HYPERCAPNIA Qualifiers: Respiratory failure complication: hypoxia Qualified Code(s): J96.01 - Acute respiratory failure with hypoxia (6) COPD exacerbation Code(s): J44.1 - CHRONIC OBSTRUCTIVE PULMONARY DISEASE W (ACUTE) EXACERBATION (7) Suspected COVID-19 virus infection Code(s): Z20.828 - CONTACT W AND EXPOSURE TO OTH VIRAL COMMUNICABLE DISEASES (8) COPD with exacerbation Code(s): J44.1 - CHRONIC OBSTRUCTIVE PULMONARY DISEASE W (ACUTE) EXACERBATION plan continue abx rest as per the team can stop abx after tomorrow
--- NOTE | 2019-09-16 11:37 | PN ---
Progress Note, DIRECTOR PAYMENT - Note Progress Note: Selected Entries 09/14/19 09/14/19 09/14/19 05:48 09:17 09:53 Breakfast 75% Diet Tolerated Fair Lunch Supper Temperature 97.7 F 98.1 F Blood Pressure O2 Sat by Pulse Oximetry (%) Oxygen Delivery Method Oxygen Flow Rate 09/14/19 09/14/19 09/14/19 12:58 13:42 18:26 Breakfast Diet Tolerated Fair Lunch 75% Supper Temperature 97.4 F L 98.1 F Blood Pressure O2 Sat by Pulse Oximetry (%) Oxygen Delivery Method Oxygen Flow Rate 09/14/19 09/14/19 09/15/19 20:17 21:29 06:43 Breakfast Diet Tolerated Well Lunch Supper 75% Temperature 98.1 F 97.9 F Blood Pressure 112/66 O2 Sat by Pulse Oximetry (%) Oxygen Delivery Method Oxygen Flow Rate 09/15/19 09/15/19 09/15/19 09:47 13:34 18:00 Breakfast 75% Diet Tolerated Well Lunch 100% Supper Temperature 97.5 F L 97.4 F L 98.1 F Blood Pressure 113/59 L 103/35 L 108/64 O2 Sat by Pulse Oximetry (%) Oxygen Delivery Method Oxygen Flow Rate 09/15/19 09/15/19 09/16/19 20:37 20:44 05:34 Breakfast Diet Tolerated Well Lunch Supper 100% Temperature 97.6 F 97.8 F Blood Pressure 108/60 118/73 O2 Sat by Pulse Oximetry (%) Oxygen Delivery Method Oxygen Flow Rate 09/16/19 09/16/19 09/16/19 09:00 09:30 10:00 Breakfast 50% Diet Tolerated Fair Lunch Supper Temperature 97.3 F L Blood Pressure 117/58 L O2 Sat by Pulse 95 Oximetry (%) Oxygen Delivery Nasal Cannula Method Oxygen Flow 5 Rate On soft regular diet with improved PO intake
--- NOTE | 2019-09-16 14:21 | PN ---
Progress Note (short form) - Note Progress Note: Continues to improve. More comfortable on 5 L NC O2. Less SOB overall. No acute events overnight. Intake & Output 09/13/19 09/14/19 09/15/19 09/16/19 23:59 23:59 23:59 23:59 Intake Total 1650 700 900 650 Output Total 1999 1750 1800 500 Balance -350 -1050 -900 150 Last Vital Signs Temp Pulse Resp BP Pulse Ox 97.3 F L 75 18 117/58 L 95 09/16/19 10:00 09/16/19 10:00 09/16/19 10:00 09/16/19 10:00 09/16/19 09:00 Active Medications Acetaminophen (Tylenol -) 650 mg PO Q6H PRN PRN Reason: FEVER Last Admin: 09/09/19 01:13 Dose: 650 mg Documented by: Albuterol Sulfate (Ventolin Hfa Inhaler -) 2 puff IH Q4H PRN PRN Reason: SHORTNESS OF BREATH Last Admin: 09/15/19 20:39 Dose: 2 puff Documented by: Docusate Sodium (Colace -) 100 mg PO TID [facility] Last Admin: 09/16/19 13:25 Dose: 100 mg Documented by: Meropenem 1 gm/ Dextrose 100 mls @ 200 mls/hr IVPB Q8H-IV [facility] Last Admin: 09/16/19 09:34 Dose: 200 mls/hr Documented by: Methylprednisolone Sodium Succinate (Solu-Medrol -) 40 mg IVPUSH Q8H-IV [facility] Last Admin: 09/16/19 09:34 Dose: 40 mg Documented by: Nystatin (Nystatin Oral Suspension -) 500,000 units PO Q6HPO [facility] Last Admin: 09/16/19 12:58 Dose: Not Given Documented by: Tamoxifen Citrate (Tamoxifen Citrate) 20 mg PO DAILY [facility] Last Admin: 09/16/19 09:34 Dose: 20 mg Documented by: Constitutional: Yes: NAD Eyes: Yes: WNL HENT: Yes: WNL Neck: Yes: WNL Cardiovascular: Yes: Regular Rate and Rhythm, S1, S2 Respiratory: Yes: Bilateral scattered rhonchi, no wheezes Gastrointestinal: Yes: Normal Bowel Sounds, Soft Extremities: Yes: WNL Edema: No Labs: Problem List - Problems (1) Breast calcification, right Code(s): R92.1 - MAMMOGRAPHIC CALCIFCN FOUND ON DIAGNOSTIC IMAGING OF BREAST (2) Breast cancer in male Code(s): C50.929 - MALIGNANT NEOPLASM OF UNSP SITE OF UNSPECIFIED MALE BREAST (3) Pneumonia Code(s): J18.9 - PNEUMONIA, UNSPECIFIED ORGANISM (4) Sepsis Code(s): A41.9 - SEPSIS, UNSPECIFIED ORGANISM (5) Acute respiratory failure Code(s): J96.00 - ACUTE RESPIRATORY FAILURE, UNSP W HYPOXIA OR HYPERCAPNIA Qualifiers: Respiratory failure complication: hypoxia Qualified Code(s): J96.01 - Acute respiratory failure with hypoxia (6) COPD exacerbation Code(s): J44.1 - CHRONIC OBSTRUCTIVE PULMONARY DISEASE W (ACUTE) EXACERBATION (7) Suspected COVID-19 virus infection Code(s): Z20.828 - CONTACT W AND EXPOSURE TO OTH VIRAL COMMUNICABLE DISEASES Assessment/Plan IMP ACUTE HYPPOXEMIC RESPIRATORY FAILURE RUL PNEUMONIA SEPSIS COPD R SIDED BREAST CA S/P MASTECTOMY ETOH TOBACCO ABUSE HYPONATREMIA PLAN Supplemental O2 to maintain saturation ABX BD TX COVID PCR negative Will further taper steroids in AM Dr Moreira
[2019-09-16 16:10] LABS: IGA IMMUNOGLOBULIN 638 mg/dL (61-437); IGG QN IMMUNOGLOBULIN 825 mg/dL (603-1613); IGM QN SERUM 77 mg/dL (15-143)
--- NOTE | 2019-09-16 22:30 | PN ---
Progress Note, Physician History of Present Illness: Pt feeling better - Current Medication List Current Medications: Active Medications Acetaminophen (Tylenol -) 650 mg PO Q6H PRN PRN Reason: FEVER Last Admin: 09/09/19 01:13 Dose: 650 mg Documented by: Albuterol Sulfate (Ventolin Hfa Inhaler -) 2 puff IH Q4H PRN PRN Reason: SHORTNESS OF BREATH Last Admin: 09/15/19 20:39 Dose: 2 puff Documented by: Docusate Sodium (Colace -) 100 mg PO TID [facility] Last Admin: 09/16/19 22:24 Dose: 100 mg Documented by: Meropenem 1 gm/ Dextrose 100 mls @ 200 mls/hr IVPB Q8H-IV [facility] Last Admin: 09/16/19 18:09 Dose: 200 mls/hr Documented by: Methylprednisolone Sodium Succinate (Solu-Medrol -) 30 mg IVPUSH BID [facility] Last Admin: 09/16/19 22:24 Dose: 30 mg Documented by: Nystatin (Nystatin Oral Suspension -) 500,000 units PO Q6HPO [facility] Last Admin: 09/16/19 18:10 Dose: Not Given Documented by: Tamoxifen Citrate (Tamoxifen Citrate) 20 mg PO DAILY [facility] Last Admin: 09/16/19 09:34 Dose: 20 mg Documented by: - Objective Vital Signs: Vital Signs Temperature 97.7 F 09/16/19 18:12 Pulse Rate 66 09/16/19 18:12 Respiratory Rate 20 09/16/19 18:12 Blood Pressure 108/61 09/16/19 18:12 O2 Sat by Pulse Oximetry (%) 95 09/16/19 09:00 Neck: Yes: WNL, Supple Cardiovascular: Yes: WNL, Regular Rate and Rhythm Respiratory: Yes: Diminished Gastrointestinal: Yes: WNL, Normal Bowel Sounds, Soft Labs: CBC, BMP 09/11/19 06:15 09/11/19 06:15 INR, PTT INR 1.23 (0.83-1.09) H 09/04/19 10:28 Problem List - Problems (1) Pneumonia Assessment/Plan: CXR showed b/l interstitial opacities COVID 19 negative Cont albuterol inhaler Cont IV meropenem May be able to change to po antibxs Code(s): J18.9 - PNEUMONIA, UNSPECIFIED ORGANISM (2) COPD (chronic obstructive pulmonary disease) Assessment/Plan: Cont inhaler Cont IV solumedrol Taper steroids as per pulmonary Code(s): J44.9 - CHRONIC OBSTRUCTIVE PULMONARY DISEASE, UNSPECIFIED (3) Leukocytosis Assessment/Plan: Probable CLL Flow cytometry pending As per heme Code(s): D72.829 - ELEVATED WHITE BLOOD CELL COUNT, UNSPECIFIED (4) Sepsis Assessment/Plan: Probably due to pneumonia Cont IV meropenem Code(s): A41.9 - SEPSIS, UNSPECIFIED ORGANISM (5) Breast cancer in male Assessment/Plan: Cont tamoxifen Code(s): C50.929 - MALIGNANT NEOPLASM OF UNSP SITE OF UNSPECIFIED MALE BREAST
[2019-09-17] MEDS ORDERED: DEXTROSE 5%-WATER 100 ML IVPB ONE ×2 (00:48→09:34)
[2019-09-17] MEDS ORDERED: MEROPENEM 1 GM VIAL (RESTRICTED TO ID) IVPB ONE ×2 (00:48→09:33)
[2019-09-17] MEDS: NYSTATIN 500,000 UNITS/5 ML SUSPENSION PO SCH ×5 (01:13→23:04)
[2019-09-17] MEDS: MEROPENEM 1 GM in DEXTROSE 5%-WATER 100 ML IVPB SCH ×2 (01:13→09:36)
[2019-09-17] MEDS: DOCUSATE SODIUM 100 MG CAPSULE (FP) PO SCH ×3 (05:32→21:41)
[2019-09-17 07:54] LABS: ALBUMIN 1.8 g/dl (3.4-5.0); BILIRUBIN,TOTAL 1.2 mg/dL (0.2-1); BLOOD UREA NITROGEN 29.8 mg/dL (7-18); CALCIUM 8.5 mg/dL (8.5-10.1); CREATININE 0.7 mg/dL (0.55-1.3); POTASSIUM 5.1 mmol/L (3.5-5.1); TOT PROT 5.4 g/dl (6.4-8.2)
[2019-09-17 08:18] LABS: BASO % 0.1 % (0-2.0); HEMATOCRIT 44.4 % (35.4-49); LYMPH % 63.7 % (8-40); MCH 29.4 pg (25.7-33.7); MCHC 31.5 g/dl (32.0-35.9); MEAN CELL VOLUME 93.3 fl (80-96); MEAN PLT VOLUME 10.8 fl (7.5-11.1); MONO % 2.4 % (3.8-10.2); NEUT % 33.8 % (42.8-82.8); PLATELET COUNT 180 K/MM3 (134-434); RBC 4.75 M/mm3 (4.00-5.60); RDW 16.7 % (11.9-15.9)
[2019-09-17 08:37] LABS: WHITE BLOOD COUNT 58.2 K/mm3 (4.0-10.0)
[2019-09-17] MEDS: TAMOXIFEN CITRATE 10 MG TABLET PO SCH (09:36)
[2019-09-17] MEDS: methylPREDNISolone NA SUCC 40 MG/1 ML VIAL IVPUSH SCH ×2 (09:36→21:40)
[2019-09-17 10:03] LABS: ANISOCYTOSIS 3+; MACROCYTOSIS 1+
[2019-09-17 10:54] LABS: PLATELET ESTIMATE ADEQUATE
--- NOTE | 2019-09-17 11:19 | PN ---
Progress Note, SMELTER CHARGER - Note Progress Note: Selected Entries 09/16/19 09/16/19 09/16/19 05:34 09:30 10:00 Breakfast 50% Diet Tolerated Fair Lunch Temperature 97.8 F 97.3 F L Blood Pressure 118/73 117/58 L 09/16/19 09/16/19 09/16/19 14:43 18:12 22:00 Breakfast Diet Tolerated Fair Fair Lunch 50% Temperature 98.0 F 97.7 F 97.9 F Blood Pressure 117/58 L 108/61 107/63 09/17/19 09/17/19 05:51 09:44 Breakfast 100% Diet Tolerated Lunch Temperature 97.6 F Blood Pressure 112/61 Laboratory Tests 09/17/19 06:30 WBC 58.2 H* afebrile, O2@5L NC saturating 95-96%.
--- NOTE | 2019-09-17 13:10 | PN ---
Progress Note, Physician History of Present Illness: stable breathing well very weak - Current Medication List Current Medications: Active Medications Acetaminophen (Tylenol -) 650 mg PO Q6H PRN PRN Reason: FEVER Last Admin: 09/09/19 01:13 Dose: 650 mg Documented by: Albuterol Sulfate (Ventolin Hfa Inhaler -) 2 puff IH Q4H PRN PRN Reason: SHORTNESS OF BREATH Last Admin: 09/15/19 20:39 Dose: 2 puff Documented by: Docusate Sodium (Colace -) 100 mg PO TID [facility] Last Admin: 09/17/19 05:32 Dose: Not Given Documented by: Meropenem 1 gm/ Dextrose 100 mls @ 200 mls/hr IVPB Q8H-IV [facility] Last Admin: 09/17/19 09:36 Dose: 200 mls/hr Documented by: Methylprednisolone Sodium Succinate (Solu-Medrol -) 30 mg IVPUSH BID [facility] Last Admin: 09/17/19 09:36 Dose: 30 mg Documented by: Nystatin (Nystatin Oral Suspension -) 500,000 units PO Q6HPO [facility] Last Admin: 09/17/19 11:06 Dose: Not Given Documented by: Tamoxifen Citrate (Tamoxifen Citrate) 20 mg PO DAILY [facility] Last Admin: 09/17/19 09:36 Dose: 20 mg Documented by: - Objective Vital Signs: Vital Signs Temperature 97.6 F 09/17/19 05:51 Pulse Rate 72 09/17/19 05:51 Respiratory Rate 18 09/17/19 05:51 Blood Pressure 112/61 09/17/19 05:51 O2 Sat by Pulse Oximetry (%) 94 L 09/17/19 08:35 Constitutional: Yes: No Distress, Calm Cardiovascular: Yes: S1, S2 Respiratory: Yes: Regular, CTA Bilaterally, On Nasal O2 Gastrointestinal: Yes: Normal Bowel Sounds, Soft Musculoskeletal: Yes: WNL Extremities: Yes: WNL Neurological: Yes: Alert, Oriented Psychiatric: Yes: Alert, Oriented Labs: CBC, BMP 09/17/19 06:30 09/17/19 06:30 INR, PTT INR 1.23 (0.83-1.09) H 09/04/19 10:28 Assessment/Plan Problem List - Problems (1) Breast calcification, right Code(s): R92.1 - MAMMOGRAPHIC CALCIFCN FOUND ON DIAGNOSTIC IMAGING OF BREAST (2) Breast cancer in male Code(s): C50.929 - MALIGNANT NEOPLASM OF UNSP SITE OF UNSPECIFIED MALE BREAST (3) Pneumonia Code(s): J18.9 - PNEUMONIA, UNSPECIFIED ORGANISM (4) Sepsis Code(s): A41.9 - SEPSIS, UNSPECIFIED ORGANISM (5) Acute respiratory failure Code(s): J96.00 - ACUTE RESPIRATORY FAILURE, UNSP W HYPOXIA OR HYPERCAPNIA Qualifiers: Respiratory failure complication: hypoxia Qualified Code(s): J96.01 - Acute respiratory failure with hypoxia (6) COPD exacerbation Code(s): J44.1 - CHRONIC OBSTRUCTIVE PULMONARY DISEASE W (ACUTE) EXACERBATION (7) Suspected COVID-19 virus infection Code(s): Z20.828 - CONTACT W AND EXPOSURE TO OTH VIRAL COMMUNICABLE DISEASES (8) COPD with exacerbation Code(s): J44.1 - CHRONIC OBSTRUCTIVE PULMONARY DISEASE W (ACUTE) EXACERBATION plan will stop abx after tomorrow rest as per the team
--- NOTE | 2019-09-17 16:08 | PN ---
Progress Note (short form) - Note Progress Note: Continues to improve. More comfortable on 5 L NC O2. Less SOB overall. No acute events overnight. Intake & Output 09/14/19 09/15/19 09/16/19 09/17/19 23:59 23:59 23:59 23:59 Intake Total 975 799 1526 300 Output Total 1750 1800 900 800 Balance -1050 -900 450 -500 Last Vital Signs Temp Pulse Resp BP Pulse Ox 98.2 F 81 18 104/54 L 94 L 09/17/19 15:30 09/17/19 16:05 09/17/19 15:30 09/17/19 15:30 09/17/19 16:05 Active Medications Acetaminophen (Tylenol -) 650 mg PO Q6H PRN PRN Reason: FEVER Last Admin: 09/09/19 01:13 Dose: 650 mg Documented by: Albuterol Sulfate (Ventolin Hfa Inhaler -) 2 puff IH Q4H PRN PRN Reason: SHORTNESS OF BREATH Last Admin: 09/15/19 20:39 Dose: 2 puff Documented by: Docusate Sodium (Colace -) 100 mg PO TID [facility] Last Admin: 09/17/19 13:39 Dose: Not Given Documented by: Methylprednisolone Sodium Succinate (Solu-Medrol -) 30 mg IVPUSH BID [facility] Last Admin: 09/17/19 09:36 Dose: 30 mg Documented by: Nystatin (Nystatin Oral Suspension -) 500,000 units PO Q6HPO [facility] Last Admin: 09/17/19 11:06 Dose: Not Given Documented by: Tamoxifen Citrate (Tamoxifen Citrate) 20 mg PO DAILY [facility] Last Admin: 09/17/19 09:36 Dose: 20 mg Documented by: Constitutional: Yes: NAD Eyes: Yes: WNL HENT: Yes: WNL Neck: Yes: WNL Cardiovascular: Yes: Regular Rate and Rhythm, S1, S2 Respiratory: Yes: Bilateral scattered rhonchi, no wheezes Gastrointestinal: Yes: Normal Bowel Sounds, Soft Extremities: Yes: WNL Edema: No Labs: Laboratory Results - last 24 hr 09/15/19 09/17/19 09/17/19 05:45 06:30 06:30 WBC 58.2 H* RBC 4.75 Hgb 14.0 Hct 44.4 MCV 93.3 MCH 29.4 MCHC 31.5 L RDW 16.7 H Plt Count 180 D MPV 10.8 D Absolute Neuts (auto) 19.7 H Neutrophils % 33.8 L D Neutrophils % (Manual) 37.5 L D Band Neutrophils % 0.0 Lymphocytes % 63.7 H Lymphocytes % (Manual) 62.5 H D Monocytes % 2.4 L Monocytes % (Manual) 0 L Eosinophils % 0.0 Eosinophils % (Manual) 0.0 Basophils % 0.1 Basophils % (Manual) 0.0 Myelocytes % (Man) 0 Promyelocytes % (Man) 0 Blast Cells % (Manual) 0 Nucleated RBC % 0 Metamyelocytes 0 Hypochromia 3+ Platelet Estimate Adequate Platelet Comment No clumping noted Polychromasia 0 Poikilocytosis 0 Anisocytosis 3+ Microcytosis 2+ Macrocytosis 1+ Sodium 135 L Potassium 5.1 Chloride 99 Carbon Dioxide 30 Anion Gap 5 L BUN 29.8 H Creatinine 0.7 Est GFR (CKD-EPI)AfAm 110.04 Est GFR (CKD-EPI)NonAf 94.95 Random Glucose 98 Calcium 8.5 Total Bilirubin 1.2 H AST 16 ALT 56 Alkaline Phosphatase 80 Total Protein 5.4 L Albumin 1.8 L IgG 825 IgA 638 H IgM 77 Problem List - Problems (1) Breast calcification, right Code(s): R92.1 - MAMMOGRAPHIC CALCIFCN FOUND ON DIAGNOSTIC IMAGING OF BREAST (2) Breast cancer in male Code(s): C50.929 - MALIGNANT NEOPLASM OF UNSP SITE OF UNSPECIFIED MALE BREAST (3) Pneumonia Code(s): J18.9 - PNEUMONIA, UNSPECIFIED ORGANISM (4) Sepsis Code(s): A41.9 - SEPSIS, UNSPECIFIED ORGANISM (5) Acute respiratory failure Code(s): J96.00 - ACUTE RESPIRATORY FAILURE, UNSP W HYPOXIA OR HYPERCAPNIA Qualifiers: Respiratory failure complication: hypoxia Qualified Code(s): J96.01 - Acute respiratory failure with hypoxia (6) COPD exacerbation Code(s): J44.1 - CHRONIC OBSTRUCTIVE PULMONARY DISEASE W (ACUTE) EXACERBATION (7) Suspected COVID-19 virus infection Code(s): Z20.828 - CONTACT W AND EXPOSURE TO OTH VIRAL COMMUNICABLE DISEASES Assessment/Plan IMP ACUTE HYPPOXEMIC RESPIRATORY FAILURE RUL PNEUMONIA SEPSIS COPD R SIDED BREAST CA S/P MASTECTOMY ETOH TOBACCO ABUSE HYPONATREMIA PLAN Supplemental O2 to maintain saturation : Check Pre and Post ambulation saturation ABX BD TX COVID PCR negative Will further taper steroids in AM Dr Moreira
--- NOTE | 2019-09-17 17:14 | PN ---
Progress Note, Physician History of Present Illness: STABLE - Current Medication List Current Medications: Active Medications Acetaminophen (Tylenol -) 650 mg PO Q6H PRN PRN Reason: FEVER Last Admin: 09/09/19 01:13 Dose: 650 mg Documented by: Albuterol Sulfate (Ventolin Hfa Inhaler -) 2 puff IH Q4H PRN PRN Reason: SHORTNESS OF BREATH Last Admin: 09/15/19 20:39 Dose: 2 puff Documented by: Docusate Sodium (Colace -) 100 mg PO TID [facility] Last Admin: 09/17/19 13:39 Dose: Not Given Documented by: Methylprednisolone Sodium Succinate (Solu-Medrol -) 30 mg IVPUSH BID [facility] Last Admin: 09/17/19 09:36 Dose: 30 mg Documented by: Nystatin (Nystatin Oral Suspension -) 500,000 units PO Q6HPO [facility] Last Admin: 09/17/19 17:00 Dose: Not Given Documented by: Tamoxifen Citrate (Tamoxifen Citrate) 20 mg PO DAILY [facility] Last Admin: 09/17/19 09:36 Dose: 20 mg Documented by: - Objective Vital Signs: Vital Signs Temperature 98.2 F 09/17/19 15:30 Pulse Rate 81 09/17/19 16:05 Respiratory Rate 18 09/17/19 15:30 Blood Pressure 104/54 L 09/17/19 15:30 O2 Sat by Pulse Oximetry (%) 94 L 09/17/19 16:05 Constitutional: Yes: No Distress HENT: Yes: Atraumatic Neck: Yes: Supple Cardiovascular: Yes: Regular Rate and Rhythm Respiratory: Yes: Rhonchi Gastrointestinal: Yes: Normal Bowel Sounds Extremities: Yes: WNL Neurological: Yes: Alert, Oriented Labs: CBC, BMP 09/17/19 06:30 09/17/19 06:30 INR, PTT INR 1.23 (0.83-1.09) H 09/04/19 10:28 Problem List - Problems (1) Pneumonia Assessment/Plan: off of abx per id monitor Code(s): J18.9 - PNEUMONIA, UNSPECIFIED ORGANISM (2) COPD (chronic obstructive pulmonary disease) Assessment/Plan: duo nebs prn steroid taper Code(s): J44.9 - CHRONIC OBSTRUCTIVE PULMONARY DISEASE, UNSPECIFIED (3) Suspected COVID-19 virus infection Assessment/Plan: negative Code(s): Z20.828 - CONTACT W AND EXPOSURE TO OTH VIRAL COMMUNICABLE DISEASES (4) Sepsis Code(s): A41.9 - SEPSIS, UNSPECIFIED ORGANISM (5) Leukocytosis Assessment/Plan: chronic heme consult reviewed Code(s): D72.829 - ELEVATED WHITE BLOOD CELL COUNT, UNSPECIFIED Assessment/Plan COVERING FOR DR BASHIR TODAY
[2019-09-18] MEDS: NYSTATIN 500,000 UNITS/5 ML SUSPENSION PO SCH ×2 (05:20→11:04)
[2019-09-18] MEDS: DOCUSATE SODIUM 100 MG CAPSULE (FP) PO SCH ×2 (05:20→14:00)
[2019-09-18] MEDS: TAMOXIFEN CITRATE 10 MG TABLET PO SCH (09:40)
[2019-09-18] MEDS: methylPREDNISolone NA SUCC 40 MG/1 ML VIAL IVPUSH SCH (09:40)
--- NOTE | 2019-09-18 10:24 | PN ---
Progress Note (short form) - Note Progress Note: WBC today 58.2, has been stable in the 30s previously. Follow CBC every day or every other day to see if it persists. He has CLL, but WBC counts elevated for 20 years at very slowly rising rate. Follow to see if this is a change.
--- NOTE | 2019-09-18 10:48 | PN ---
Progress Note (short form) - Note Progress Note: Continues to improve. Desaturated to 87% on RA.m Requires home O2. Less SOB overall. No acute events overnight. Intake & Output 09/15/19 09/16/19 09/17/19 09/18/19 23:59 23:59 23:59 23:59 Intake Total 900 1350 480 190 Output Total 1800 900 800 500 Balance -900 450 -320 -310 Last Vital Signs Temp Pulse Resp BP Pulse Ox 97.3 F L 68 18 102/57 L 94 L 09/18/19 06:00 09/18/19 06:00 09/18/19 06:00 09/18/19 06:00 09/17/19 21:00 Active Medications Acetaminophen (Tylenol -) 650 mg PO Q6H PRN PRN Reason: FEVER Last Admin: 09/09/19 01:13 Dose: 650 mg Documented by: Albuterol Sulfate (Ventolin Hfa Inhaler -) 2 puff IH Q4H PRN PRN Reason: SHORTNESS OF BREATH Last Admin: 09/15/19 20:39 Dose: 2 puff Documented by: Docusate Sodium (Colace -) 100 mg PO TID [facility] Last Admin: 09/18/19 05:20 Dose: Not Given Documented by: Methylprednisolone Sodium Succinate (Solu-Medrol -) 30 mg IVPUSH BID [facility] Last Admin: 09/18/19 09:40 Dose: 30 mg Documented by: Nystatin (Nystatin Oral Suspension -) 500,000 units PO Q6HPO [facility] Last Admin: 09/18/19 05:20 Dose: Not Given Documented by: Tamoxifen Citrate (Tamoxifen Citrate) 20 mg PO DAILY [facility] Last Admin: 09/18/19 09:40 Dose: 20 mg Documented by: Constitutional: Yes: NAD Eyes: Yes: WNL HENT: Yes: WNL Neck: Yes: WNL Cardiovascular: Yes: Regular Rate and Rhythm, S1, S2 Respiratory: Yes: Bilateral scattered rhonchi, no wheezes Gastrointestinal: Yes: Normal Bowel Sounds, Soft Extremities: Yes: WNL Edema: No Labs: Laboratory Results - last 24 hr 09/17/19 06:30 Neutrophils % (Manual) 37.5 L D Band Neutrophils % 0.0 Lymphocytes % (Manual) 62.5 H D Monocytes % (Manual) 0 L Eosinophils % (Manual) 0.0 Basophils % (Manual) 0.0 Myelocytes % (Man) 0 Promyelocytes % (Man) 0 Blast Cells % (Manual) 0 Metamyelocytes 0 Hypochromia 3+ Platelet Estimate Adequate Platelet Comment No clumping noted Polychromasia 0 Poikilocytosis 0 Anisocytosis 3+ Microcytosis 2+ Macrocytosis 1+ Problem List - Problems (1) Breast calcification, right Code(s): R92.1 - MAMMOGRAPHIC CALCIFCN FOUND ON DIAGNOSTIC IMAGING OF BREAST (2) Breast cancer in male Code(s): C50.929 - MALIGNANT NEOPLASM OF UNSP SITE OF UNSPECIFIED MALE BREAST (3) Pneumonia Code(s): J18.9 - PNEUMONIA, UNSPECIFIED ORGANISM (4) Sepsis Code(s): A41.9 - SEPSIS, UNSPECIFIED ORGANISM (5) Acute respiratory failure Code(s): J96.00 - ACUTE RESPIRATORY FAILURE, UNSP W HYPOXIA OR HYPERCAPNIA Qualifiers: Respiratory failure complication: hypoxia Qualified Code(s): J96.01 - Acute respiratory failure with hypoxia (6) COPD exacerbation Code(s): J44.1 - CHRONIC OBSTRUCTIVE PULMONARY DISEASE W (ACUTE) EXACERBATION (7) Suspected COVID-19 virus infection Code(s): Z20.828 - CONTACT W AND EXPOSURE TO OTH VIRAL COMMUNICABLE DISEASES Assessment/Plan IMP ACUTE HYPPOXEMIC RESPIRATORY FAILURE RUL PNEUMONIA SEPSIS COPD R SIDED BREAST CA S/P MASTECTOMY ETOH TOBACCO ABUSE HYPONATREMIA PLAN Patient will need supplemental home O2. ABX BD [place] COVID PCR negative Can change to Prednisone taper DC planning Dr Moreira
--- NOTE | 2019-09-18 10:56 | PN ---
Progress Note, Physician History of Present Illness: stable no new issues breathing well - Current Medication List Current Medications: Active Medications Acetaminophen (Tylenol -) 650 mg PO Q6H PRN PRN Reason: FEVER Last Admin: 09/09/19 01:13 Dose: 650 mg Documented by: Albuterol Sulfate (Ventolin Hfa Inhaler -) 2 puff IH Q4H PRN PRN Reason: SHORTNESS OF BREATH Last Admin: 09/15/19 20:39 Dose: 2 puff Documented by: Docusate Sodium (Colace -) 100 mg PO TID [facility] Last Admin: 09/18/19 05:20 Dose: Not Given Documented by: Methylprednisolone Sodium Succinate (Solu-Medrol -) 30 mg IVPUSH BID [facility] Last Admin: 09/18/19 09:40 Dose: 30 mg Documented by: Nystatin (Nystatin Oral Suspension -) 500,000 units PO Q6HPO [facility] Last Admin: 09/18/19 05:20 Dose: Not Given Documented by: Tamoxifen Citrate (Tamoxifen Citrate) 20 mg PO DAILY [facility] Last Admin: 09/18/19 09:40 Dose: 20 mg Documented by: - Objective Vital Signs: Vital Signs Temperature 97.3 F L 09/18/19 06:00 Pulse Rate 68 09/18/19 06:00 Respiratory Rate 18 09/18/19 06:00 Blood Pressure 102/57 L 09/18/19 06:00 O2 Sat by Pulse Oximetry (%) 94 L 09/17/19 21:00 Constitutional: Yes: No Distress, Calm Cardiovascular: Yes: S1, S2 Respiratory: Yes: Regular, On Nasal O2 Gastrointestinal: Yes: Normal Bowel Sounds, Soft Musculoskeletal: Yes: WNL Extremities: Yes: WNL Neurological: Yes: Alert, Oriented Psychiatric: Yes: Alert, Oriented Labs: CBC, BMP 09/17/19 06:30 09/17/19 06:30 INR, PTT INR 1.23 (0.83-1.09) H 09/04/19 10:28 Assessment/Plan Problem List - Problems (1) Breast calcification, right Code(s): R92.1 - MAMMOGRAPHIC CALCIFCN FOUND ON DIAGNOSTIC IMAGING OF BREAST (2) Breast cancer in male Code(s): C50.929 - MALIGNANT NEOPLASM OF UNSP SITE OF UNSPECIFIED MALE BREAST (3) Pneumonia Code(s): J18.9 - PNEUMONIA, UNSPECIFIED ORGANISM (4) Sepsis Code(s): A41.9 - SEPSIS, UNSPECIFIED ORGANISM (5) Acute respiratory failure Code(s): J96.00 - ACUTE RESPIRATORY FAILURE, UNSP W HYPOXIA OR HYPERCAPNIA Qualifiers: Respiratory failure complication: hypoxia Qualified Code(s): J96.01 - Acute respiratory failure with hypoxia (6) COPD exacerbation Code(s): J44.1 - CHRONIC OBSTRUCTIVE PULMONARY DISEASE W (ACUTE) EXACERBATION (7) Suspected COVID-19 virus infection Code(s): Z20.828 - CONTACT W AND EXPOSURE TO [facility] VIRAL COMMUNICABLE DISEASES (8) COPD with exacerbation Code(s): J44.1 - CHRONIC OBSTRUCTIVE PULMONARY DISEASE W (ACUTE) EXACERBATION plan doing well continue current mgmt
[2019-09-18 13:35] VITALS: BP 111/73; PULSE 78; TEMP 97.6
== END 2019-09-18 17:13 | disposition home health service (06) | DRG 871 ==
LOC: JER 10:05 → JERBED 13:15 → J7W 23:36
PROVIDERS: ADMIT Internal Medicine; ATTEND Internal Medicine
DX: A41.89 Other specified sepsis (principal); J18.9 Pneumonia, unspecified organism; J96.01 Acute respiratory failure with hypoxia; J44.1 Chronic obstructive pulmonary disease with (acute) exacerbation; E87.1 Hypo-osmolality and hyponatremia; C91.10 Chronic lymphocytic leukemia of B-cell type not having achieved remission; R50.9 Fever, unspecified; R00.0 Tachycardia, unspecified; F10.10 Alcohol abuse, uncomplicated; F17.210 Nicotine dependence, cigarettes, uncomplicated; Z85.3 Personal history of malignant neoplasm of breast
CPT/HCPCS: 36415; 71045-TC-FY; 80053; 81003; 82784; 82803; 83605; 84484; 85025; 85610; 85730; 87040; 87086; 88300-TC; 93005; 93010; 94640; 94660; 94761; 97116-GP; 97161-GP; 99291; G0480; J0131; J1644; U0003

== ENCOUNTER 2019-09-23 08:09 | Emergency (ER) | payer OTHER ==
[2019-09-23 08:21] VITALS: BMI 25.0
--- NOTE | 2019-09-23 08:38 | PDOC ---
History of Present Illness - General Chief Complaint: Pain Stated Complaint: ABD PAIN Time Seen by Provider: 09/23/19 08:17 - History of Present Illness Initial Comments: 73 year old male, with a significant PMH of R-sided breast cancer (s/p mastectomy), COPD, leukocytosis, alcoholism, and current smoker, who presents to the ED for constipation. He was recently discharged from the hospital for pneumonia. He states that he was having normal bowel movements since discharge up until two days ago, when he stopped. No diarrhea. Reports abdominal discomfort that he describes as "gas pains". No fever/chills. No chest pain/shortness of breath. No focal abdominal pain. No back pain. No dysuria. No nausea/vomiting. No leg swelling. Prescribed colace on discharge. Took his first one this morning. Also reports a diffuse non pruritic rash all over his body that started a few days ago. Given meropenem inpatient and d/c on 10 days of ceftin. No anaphylaxis or throat/tongue swelling. No drooling. Past History - Medical History Allergies/Adverse Reactions: Allergies Allergy/AdvReac Type Severity Reaction Status Date / Time mustard Allergy Verified 09/23/19 08:29 No Known Drug Allergies Allergy Verified 09/23/19 08:29 Home Medications: Ambulatory Orders Tamoxifen Citrate 20 mg PO DAILY 09/04/19 Albuterol Sulfate Inhaler - [Ventolin HFA Inhaler -] 2 puff IH Q4H PRN #1 inhaler 09/18/19 Cefuroxime Axetil [Ceftin -] 500 mg PO Q12H #20 tablet 09/18/19 Docusate Sodium [Colace -] 100 mg PO TID #90 capsule 09/18/19 predniSONE [Deltasone -] See Taper PO BID #60 tablet 09/18/19 Anemia: No Asthma: Yes Cancer: Yes (RT BREAST CA) COPD: Yes - Immunization History Td Vaccination: Yes TDAP Vaccination: Yes Immunization Up to Date: Yes - Psycho-Social/Smoking History Smoking Status: No Smoking History: Former smoker Years of Tobacco Use: 30 Have you smoked in the past 12 months: No Number of Cigarettes Smoked Daily: 12 Information on smoking cessation initiated: No 'Breaking Loose' booklet given: 09/04/19 - Substance Abuse Hx (Audit-C & DAST Scrn) How often the patient has a drink containing alcohol: Never Score: In Men: 4 or > Positive; In Women: 3 or > Positive: 0 Screen Result (Pos requires Nsg. Audit-10AR): Negative In the last yr the pt used illegal drug/Rx for NonMed reason: No Score: Yes response is considered Positive: 0 Screen Result (Positive result requires Nsg. DAST-10): Negative Review of Systems - Review of Systems Comments:: GENERAL/CONSTITUTIONAL: No fever or chills. No weakness._ HEAD, EYES, EARS, NOSE AND THROAT: No change in vision. No change in hearing. No sore throat._ CARDIOVASCULAR: No chest pain or shortness of breath_ RESPIRATORY: Denies cough, hemoptysis_ GASTROINTESTINAL: Reports abdominal gas pains. Reports constipation. No nausea, vomiting, diarrhea. GENITOURINARY: No dysuria, frequency, or change in urination._ MUSCULOSKELETAL: No joint or muscle swelling or pain. No neck or back pain._ SKIN: Reports rash. NEUROLOGIC: No headache, vertigo, loss of consciousness, or change in strength/sensation._ ENDOCRINE: No increased thirst. No abnormal weight change_ HEMATOLOGIC/LYMPHATIC: No anemia. ALLERGIC/IMMUNOLOGIC: No hives or skin allergy._ *Physical Exam - Vital Signs Last Vital Signs Temp Pulse Resp BP Pulse Ox 98.2 F 83 18 128/62 93 L 09/23/19 08:16 09/23/19 08:16 09/23/19 08:16 09/23/19 08:16 09/23/19 08:16 - Physical Exam GENERAL: Awake, alert, and oriented to person/place/time, in no acute distress_ HEAD: No signs of trauma, normocephalic, atraumatic _ EYES: PERRLA, EOMI, sclera anicteric, conjunctiva clear_ ENT: Hearing grossly normal, nares patent, oropharynx clear without exudates. No uvular deviation. Moist mucosa_ NECK: Normal ROM, supple, no lymphadenopathy, JVD, or masses_ LUNGS: No distress, speaks in full sentences, clear to auscultation bilaterally _ HEART: Regular rate and rhythm, normal S1 and S2, no murmurs appreciated, peripheral pulses normal and equal bilaterally._ ABDOMEN: Soft, nontender, normoactive bowel sounds. No guarding, no rebound. No masses_ EXTREMITIES: Normal inspection, Normal range of motion, no edema. No clubbing or cyanosis_ NEUROLOGICAL: Cranial nerves II through XII grossly intact. Normal speech, normal gait, no focal sensorimotor deficits _ SKIN: Diffuse macular, non-pruritic, generalized rash over back, chest, abdomen, and extremities. RECTAL: Normal external exam. No obvious bleeding. Normal rectal tone. No masses or hemorrhoids appreciated on exam. ED Treatment Course - LABORATORY CBC & Chemistry Diagram: 09/23/19 09:20 09/23/19 09:20 Medical Decision Making - Medical Decision Making 09/23/19 09:01 73M presenting with constipation for the past two days and diffuse rash that started after discharge from the hospital. No anaphylaxis. No respiratory distress. Took colace this morning. -cbc, cmp -cxr -mag citrate -fluids -benadryl CXR shows residual changes in upper lobes and LLB as compared to prior, no cardiomegaly, no PTX, no acute chest pathology. Labs reviewed. Laboratory Last Values WBC 66.4 K/mm3 (4.0-10.0) H* 09/23/19 09:20 RBC 4.80 M/mm3 (4.00-5.60) 09/23/19 09:20 Hgb 14.3 GM/dL (11.7-16.9) 09/23/19 09:20 Hct 45.6 % (35.4-49) 09/23/19 09:20 MCV 94.9 fl (80-96) 09/23/19 09:20 MCH 29.7 pg (25.7-33.7) 09/23/19 09:20 MCHC 31.3 g/dl (32.0-35.9) L 09/23/19 09:20 RDW 16.5 % (11.9-15.9) H 09/23/19 09:20 Plt Count 134 K/MM3 (134-434) D 09/23/19 09:20 MPV 9.9 fl (7.5-11.1) 09/23/19 09:20 Absolute Neuts (auto) 15.8 K/mm3 (1.5-8.0) H 09/23/19 09:20 Neutrophils % 23.9 % (42.8-82.8) L D 09/23/19 09:20 Neutrophils % (Manual) 25.3 % (42.8-82.8) L D 09/23/19 09:20 Band Neutrophils % 1.0 % 09/23/19 09:20 Lymphocytes % 74.2 % (8-40) H 09/23/19 09:20 Lymphocytes % (Manual) 73.7 % (8-40) H 09/23/19 09:20 Monocytes % 1.6 % (3.8-10.2) L 09/23/19 09:20 Monocytes % (Manual) 0 % (3.8-10.2) L 09/23/19 09:20 Eosinophils % 0.1 % (0-4.5) D 09/23/19 09:20 Eosinophils % (Manual) 0.0 % (0-4.5) 09/23/19 09:20 Basophils % 0.2 % (0-2.0) 09/23/19 09:20 Basophils % (Manual) 0.0 % (0-2.0) 09/23/19 09:20 Myelocytes % (Man) 0 % (0-2) 09/23/19 09:20 Promyelocytes % (Man) 0 % (0-2) 09/23/19 09:20 Blast Cells % (Manual) 0 % (0-0) 09/23/19 09:20 Nucleated RBC % 0 % (0-0) 09/23/19 09:20 Metamyelocytes 0 % (0-2) 09/23/19 09:20 Hypochromia 0 09/23/19 09:20 Platelet Estimate Decreased 09/23/19 09:20 Platelet Comment Present 09/23/19 09:20 Polychromasia 0 09/23/19 09:20 Poikilocytosis 1+ 09/23/19 09:20 Anisocytosis 1+ 09/23/19 09:20 Microcytosis 0 09/23/19 09:20 Macrocytosis 0 09/23/19 09:20 Spherocytes 1+ 09/23/19 09:20 Sodium 136 mmol/L (136-145) 09/23/19 09:20 Potassium 4.9 mmol/L (3.5-5.1) 09/23/19 09:20 Chloride 102 mmol/L (98-107) 09/23/19 09:20 Carbon Dioxide 24 mmol/L (21-32) 09/23/19 09:20 Anion Gap 10 MMOL/L (8-16) 09/23/19 09:20 BUN 26.5 mg/dL (7-18) H 09/23/19 09:20 Creatinine 0.8 mg/dL (0.55-1.3) 09/23/19 09:20 Est GFR (CKD-EPI)AfAm 104.17 09/23/19 09:20 Est GFR (CKD-EPI)NonAf 89.88 09/23/19 09:20 Random Glucose 147 mg/dL (74-106) H 09/23/19 09:20 Calcium 8.6 mg/dL (8.5-10.1) 09/23/19 09:20 Total Bilirubin 0.6 mg/dL (0.2-1) 09/23/19 09:20 AST 30 U/L (15-37) 09/23/19 09:20 ALT 58 U/L (13-61) 09/23/19 09:20 Alkaline Phosphatase 87 U/L (45-117) 09/23/19 09:20 Total Protein 6.1 g/dl (6.4-8.2) L 09/23/19 09:20 Albumin 2.4 g/dl (3.4-5.0) L 09/23/19 09:20 TSH 1.86 uIU/ml (0.358-3.74) 09/23/19 09:20 09/23/19 12:34 Multiple calls placed to Dr. Kapadia without call back. Pt reassessed. Plan to d/c home. Given no anaphylaxis, continue course of abx (5 of 10 days left). D/w the patient his elevated WBC count. Referral to hematology provided. Pt will f/u with PCP. All questions answered. Return precautions given. Pt verbalized understanding a nd agreement with plan. Discharge - Discharge Information Problems reviewed: Yes Clinical Impression/Diagnosis: Allergic drug rash Constipation Qualifiers: Constipation type: unspecified constipation type Qualified Code(s): K59.00 - Constipation, unspecified Condition: Stable Disposition: HOME - Admission No - Follow up/Referral Referrals: Yobani Kapadia MD [Primary Care Provider] - Kyle Beck MD [Staff Physician] - - Patient Discharge Instructions Patient Printed Discharge Instructions: DI for Constipation, DI for Adverse Drug Reaction -- Allergic Additional Instructions: Please continue taking your antibiotics as prescribed. Please take Miralax over the counter (use 1 packet a day). Please keep yourself hydrated as much as possible. Please make a follow up appointment with your PCP (Dr. Yobani Kapadia). Please make a follow up appointment with a dependency counselor (Dr. Beck, referral provided here). If you experience any new, worsening, or concerning symptoms, including chest pain, shortness of breath, dizziness, nausea/vomiting, severe diarrhea, or any other concerns, please return to the emergency department. - Post Discharge Activity
[2019-09-23] MEDS ORDERED: diphenhydrAMINE HCL 50 MG CAPSULE PO ONE (09:00)
[2019-09-23] MEDS ORDERED: MAGNESIUM CITRATE 300 ML BOTTLE PO ONE (09:11)
[2019-09-23] MEDS ORDERED: SODIUM CHLORIDE 0.9% 500 ML INFUS.BAG IV ONE (09:11)
[2019-09-23] MEDS ORDERED: diphenhydrAMINE HCL 25 MG CAPSULE (FP) PO ONE (09:12)
[2019-09-23] MEDS ORDERED: MAGNESIUM CITRATE 300 ML BOTTLE ONE (09:17)
[2019-09-23 09:54] LABS: BASO % 0.2 % (0-2.0); EOS % 0.1 % (0-4.5); HEMATOCRIT 45.6 % (35.4-49); HEMOGLOBIN 14.3 GM/dL (11.7-16.9); LYMPH % 74.2 % (8-40); MCH 29.7 pg (25.7-33.7); MCHC 31.3 g/dl (32.0-35.9); MEAN CELL VOLUME 94.9 fl (80-96); MEAN PLT VOLUME 9.9 fl (7.5-11.1); MONO % 1.6 % (3.8-10.2); NEUT % 23.9 % (42.8-82.8); PLATELET COUNT 134 K/MM3 (134-434); RDW 16.5 % (11.9-15.9)
[2019-09-23 09:59] LABS: WHITE BLOOD COUNT 66.4 K/mm3 (4.0-10.0)
[2019-09-23 10:50] LABS: ALBUMIN 2.4 g/dl (3.4-5.0); BILIRUBIN,TOTAL 0.6 mg/dL (0.2-1); BLOOD UREA NITROGEN 26.5 mg/dL (7-18); CALCIUM 8.6 mg/dL (8.5-10.1); CREATININE 0.8 mg/dL (0.55-1.3); POTASSIUM 4.9 mmol/L (3.5-5.1); TOT PROT 6.1 g/dl (6.4-8.2)
--- NOTE | 2019-09-23 11:38 | PDOC ---
Documentation entered by Elsa Díaz SCRIBE, acting as scribe for Joan Diaz MD. Joan Diaz MD: This documentation has been prepared by the Arjun coffman Xhesika, SCRIBE, under my direction and personally reviewed by me in its entirety. I confirm that the documentation accurately reflects all work, treatment, procedures, and medical decision making performed by me. Attending Attestation - Resident Resident Name: Eduardo Reyes - ED Attending Attestation I have performed the following: I have examined & evaluated the patient, The case was reviewed & discussed with the resident, I agree w/resident's findings & plan, Exceptions are as noted - HPI HPI: 09/23/19 09:11 The patient is a 73y/o M, with a PMH of R-sided breast cancer (s/p mastectomy), COPD, leukocytosis, alcoholism, and current smoker, who presents to the ED for fever and shortness of breath. Pt also reports a diffuse rash all over his body that started several days ago. the patient was recently admitted for right upper lobe pneumonia, and placed on aztreonam initially, switched to cephalosporin on dc. is currently on day 5 of abx. has also noted a rash across his chest and arms, states not pruritic, no lip or tongue swelling. no other allergic sxs. in addition pt c/o constipation. states his last bm was 2 days ago. no n/v no abd pain. no narcotics. The patient denies chest pain, s headache and dizziness. Denies chills, cough, Denies dysuria, frequency, urgency and hematuria. Allergies: NKDA. marlenyard PCP:Dr. Yobani Kapadia 09/23/19 11:38 - Physicial Exam PE: 09/23/19 11:41 Awake alert no acute distress lungs are clear bilaterally heart is regular no murmurs rubs or gallops abdomen is soft and nontender no palpable masses extremities are warm and well perfused no noted edema. Patient is neurologically awake alert and oriented x3. Skin exam demonstrates diffuse dermatitis type rash across the chest and upper arms. There also is some bruising on the lower upper arms. - Medical Decision Making 09/23/19 11:41 73-year-old male recently admitted for upper lobe pneumonia here today with reaction to his rash in addition to complaints of constipation. His abdominal exam is nontender the rash appears to be diffuse across the chest and arms however it is nonpruritic and does not appear to bother the patient at all. There is no signs of other allergic reaction is unclear if it is from the antibiotic. Patient currently has 5 days left we will continue the antibiotic as it does not seem to be bothering him at all Incidentally patient will be evaluated with lab work as was recently found to be with increasing white blood cell count has a known history of CLL. CBC CMP sent patient's abdominal exam is nontender rectal exam is pending per Dr. Reyes we will give the patient dose of mag citrate and possible enema pending his rectal exam On her examination here the patient's white blood cell count is found to be 66 which is up from his prior attempt to call message left call return pending patient will require follow-up with Dr. Green and likely referral to hematology oncology for his increasing white cell count at this time it seems the patient go home to complete course of his antibiotics and recommend daily stool softeners for his constipation Discharge - Discharge Information Problems reviewed: Yes Clinical Impression/Diagnosis: Allergic drug rash Constipation Qualifiers: Constipation type: unspecified constipation type Qualified Code(s): K59.00 - Constipation, unspecified Condition: Stable Disposition: HOME - Follow up/Referral Referrals: Kyle Beck MD [Staff Physician] - Yobani Kpaadia MD [Primary Care Provider] - - Patient Discharge Instructions Patient Printed Discharge Instructions: DI for Constipation, DI for Adverse Drug Reaction -- Allergic Additional Instructions: Please continue taking your antibiotics as prescribed. Please take Miralax over the counter (use 1 packet a day). Please keep yourself hydrated as much as possible. Please make a follow up appointment with your PCP (Dr. Yobani Kapadia). Please make a follow up appointment with a document preparation specialist (Dr. Beck, referral provided here). If you experience any new, worsening, or concerning symptoms, including chest pain, shortness of breath, dizziness, nausea/vomiting, severe diarrhea, or any other concerns, please return to the emergency department. - Post Discharge Activity
[2019-09-23 12:05] LABS: ANISOCYTOSIS 1+; MACROCYTOSIS 0; PLATELET ESTIMATE DECREASED
[2019-09-23 13:26] VITALS: BP 120/70; PULSE 80; TEMP 97.5
== END 2019-09-23 13:33 | disposition home or self-care (01) ==
LOC: JER 08:09
DX: L27.0 Generalized skin eruption due to drugs and medicaments taken internally (principal); K59.00 Constipation, unspecified
CPT/HCPCS: 36415; 71045-TC-FY; 80053; 84443; 85025; 99284-25

== ENCOUNTER 2021-12-01 16:54 | Emergency (ER) | payer OTHER ==
[2021-12-01 17:26] VITALS: RESP 20; BMI 17.1
[2021-12-01] MEDS ORDERED: SODIUM CHLORIDE 0.9% 500 ML INFUS.BAG IV ONE (18:28)
[2021-12-01] MEDS ORDERED: ONDANSETRON 4 MG/2 ML VIAL IVPUSH ONE (18:41)
[2021-12-01] MEDS ORDERED: GLUCAGON 1 MG KIT IVPUSH ONE (18:41)
[2021-12-01] MEDS ORDERED: FAMOTIDINE 20 MG/50 ML IVPB 20 MG/50 ML MG IVPB ONE ×2 (18:41→20:19)
[2021-12-01 19:12] LABS: BASO % 0.8 % (0-2.0); EOS % 0.1 % (0-4.5); HEMATOCRIT 48.9 % (35.4-49); HEMOGLOBIN 15.6 GM/dL (11.7-16.9); LYMPH % 54.1 % (8-40); MCH 27.5 pg (25.7-33.7); MCHC 31.9 g/dl (32.0-35.9); MEAN CELL VOLUME 86.1 fl (80-96); MEAN PLT VOLUME 10.1 fl (7.5-11.1); MONO % 2.8 % (3.8-10.2); NEUT % 42.2 % (42.8-82.8); PLATELET COUNT 397 10^3/uL (134-434); RBC 5.68 M/mm3 (4.00-5.60); RDW 17.5 % (11.9-15.9)
[2021-12-01 19:18] LABS: INR 1.18 (0.83-1.09); PROTHROMBIN TIME (PATIENT) 13.6 SEC (9.7-13.0)
[2021-12-01 19:19] LABS: WHITE BLOOD COUNT 56.5 K/mm3 (4.0-10.0)
[2021-12-01 19:20] LABS: ACTIVATED PTT 28.7 SECONDS (25.2-36.5)
[2021-12-01 19:35] LABS: CALCIUM 12.2 mg/dL (8.5-10.1)
[2021-12-01 19:36] LABS: ALBUMIN 3.5 g/dl (3.4-5.0); BLOOD UREA NITROGEN 37.1 mg/dL (7-18)
[2021-12-01 19:39] LABS: CREATININE 1.1 mg/dL (0.55-1.3)
[2021-12-01 19:40] LABS: BILIRUBIN,TOTAL 1.1 mg/dL (0.2-1); TOT PROT 8.4 g/dl (6.4-8.2)
[2021-12-01] MEDS ORDERED: ONDANSETRON 4 MG/2 ML VIAL ONE (20:19)
[2021-12-01 20:57] LABS: ANISOCYTOSIS 2+; MACROCYTOSIS 0; OVALOCYTE 1+; TARGET CELLS 1+
[2021-12-02 00:49] VITALS: BP 98/58; PULSE 105; TEMP 97.3
== END 2021-12-02 00:50 | disposition short-term general hospital (02) ==
LOC: JER 16:54
PROC: 3E033NZ Introduction of Analgesics, Hypnotics, Sedatives into Peripheral Vein, Percutaneous Approach (ICD-10-PCS; principal; 2021-12-01)
PROC: 3E033GC Introduction of Other Therapeutic Substance into Peripheral Vein, Percutaneous Approach (ICD-10-PCS; 2021-12-01)
PROC: 3E033GC Introduction of Other Therapeutic Substance into Peripheral Vein, Percutaneous Approach (ICD-10-PCS; 2021-12-01)
DX: K56.609 Unspecified intestinal obstruction, unspecified as to partial versus complete obstruction (principal); K76.89 Other specified diseases of liver; D72.829 Elevated white blood cell count, unspecified
CPT/HCPCS: 36415; 70490-TC; 71250-TC; 80053; 85025; 85610; 85730; 86850; 86900; 86901; 96365; 96375; 99285-25; C9803-CS; U0003; U0005